=== PATIENT | female | born 1930 | race African-American/Black ===

== ENCOUNTER 2016-07-24 10:54 | Emergency (ER) | payer OTHER, MEDICARE ==
[2016-07-24 11:00] VITALS: BMI 28.3
--- NOTE | 2016-07-24 11:31 | PDOC ---
History of Present Illness - General Chief Complaint: Blood Pressure Problem Stated Complaint: HEADACHES, HIGH BP Time Seen by Provider: 07/24/16 11:08 - History of Present Illness Initial Comments: 07/24/16 11:30 CHIEF COMPLAINT: Headache, elevated BP HISTORY OF PRESENT ILLNESS: 86 yo F with hx of HTN, CAD s/p stent placement was sent to ED by GI MD Brock. Dr. Brock reports that patient is followed in the office for "GI issues" and in office today her BP was 230/100, on manual measurement was 220/96. At the time patient reports headache but no chest pain or SOB. Patient is followed by maintenance mechanic Dr. Miguel. On arrival, patient does report frontal headache but continues to report no SOB or chest pain. No recent travel or sick contacts. PAST MEDICAL HISTORY: as per HPI FAMILY HISTORY: Denies SOCIAL HISTORY: Former smoker, quit 30 years ago. Denies alcohol, illicit drug use. SURGICAL HISTORY: Denies ALLERGIES: No known drug allergies REVIEW OF SYSTEMS General/Constitutional: Denies fever or chills. Denies weakness, weight change. HEENT: Denies change in vision. Denies ear pain or discharge. Denies sore throat. Cardiovascular: Denies chest pain or shortness of breath. Respiratory: Denies cough, wheezing, or hemoptysis. Gastrointestinal: Denies nausea, vomiting, diarrhea or constipation. Denies rectal bleeding. Genitourinary: Denies dysuria, frequency, or change in urination. Musculoskeletal: Denies joint or muscle swelling or pain. Denies neck or back pain. Skin and breasts: Denies rash or easy bruising. Neurologic: Denies headache, vertigo, loss of consciousness, or loss of sensation. PHYSICAL EXAM General Appearance: Well-appearing, appropriately dressed. No apparent distress , no intoxication. HEENT: EOMI, PERRLA, normal ENT inspection, normal voice, TMs normal, pharynx normal. No conjunctival pallor. No photophobia, scleral icterus. Neck: Supple. Trachea midline. No tenderness, rigidity, carotid bruit, stridor , lymphadenopathy, or thyromegaly. Respiratory/Chest: Lungs CTAB. Cardiovascular: RRR. S1, S2. Gastrointestinal/Abdominal: Normal bowel sounds. Abdomen soft, non-distended. No tenderness or rebound tenderness. No organomegaly, pulsatile mass, guarding , hernia, hepatomegaly, splenomegaly. Musculoskeletal/Extremities: Normal inspection. FROM of all extremities, normal capillary refill. Pelvis Stable. No CVA tenderness. No tenderness to extremities, pedal edema, swelling, erythema or deformity. Integumentary: Appropriate color, dry, warm. No cyanosis, erythema, jaundice or rash Neurologic: truss puller helper II-XII intact. Fully oriented, alert. Appropriate mood/affect. Motor strength 5/5. No appreciable EOM palsy, facial droop or sensory deficit. A&Ox3, follow commands, respond appropriately CN2-12: conjugate gaze, pupil round, equal and reactive to light. Visual field full to confrontation. EOMI without nystagmus, pursuit is smooth without saccade. Facial sensation and muscle activation intact bilaterally. Hearing intact bilaterally. Palate elevate symmetrically. Shoulder shrug and neck turn full strength. Tongue protrude midline. Motor: UE and LE strength 5/5 throughout bilaterally. Muscle tone and bulk normal. Cerebellar: Rapid-alternating movement with regular rhythm without bradykinesia. Httyya-oc-ezhr and qlje-nc-umgy intact bilaterally without dysmetria or overshoot. Past History - Past Medical History Allergies/Adverse Reactions: Allergies Allergy/AdvReac Type Severity Reaction Status Date / Time cephalexin monohydrate Allergy Rash Verified 07/24/16 11:00 [From Keflex] clarithromycin [From Biaxin] AdvReac Verified 07/24/16 11:00 Home Medications: Ambulatory Orders Olmesartan Medoxomil [Benicar -] 40 mg PO DAILY #0 tablet 06/03/12 Amlodipine Besylate [Norvasc -] 10 mg PO DAILY tablet 03/27/15 Aspirin [ASA -] 81 mg PO DAILY tab.chew 03/27/15 Ranitidine [Zantac -] 150 mg PO DAILY 04/28/15 Nebivolol HCl [Bystolic] 5 mg PO AM 10/25/15 Nebivolol HCl [Bystolic] 20 mg PO HS 10/25/15 Prednisone 7.5 mg PO DAILY 06/21/16 Atorvastatin Ca [Lipitor] 40 mg PO HS #30 tablet 06/22/16 Anemia: No Asthma: No Cancer: No Cardiac Disorders: Yes (ASHD) CVA: No COPD: No CHF: No Dementia: No Diabetes: No GI Disorders: Yes (REFLUX, DIVERTICULOSIS, PEPTIC ULCER, HIATAL HERNIA, RECTAL POLYPS) Disorders: No HTN: Yes Hypercholesterolemia: Yes Liver Disease: Yes (NAFLD) Seizures: No Thyroid Disease: No - Surgical History Abdominal Surgery: (COLON RESECTION, 2012, PARTIAL CHOLECTOMY) Appendectomy: No Cardiac Surgery: Yes (cardiac stent, lt endarterectomy) Cholecystectomy: No Lung Surgery: No Neurologic Surgery: No Orthopedic Surgery: No - Immunization History Immunization Up to Date: (no open wounds) - Psycho/Social/Smoking Cessation Hx Anxiety: No Suicidal Ideation: No Smoking Status: No Smoking History: Former smoker Have you smoked in the past 12 months: No Number of Cigarettes Smoked Daily: 20 If you are a former smoker, when did you quit?: 30 YRS AGO Information on smoking cessation initiated: No Hx Alcohol Use: No Drug/Substance Use Hx: No Substance Use Type: None Hx Substance Use Treatment: No *Physical Exam - Vital Signs Last Vital Signs Temp Pulse Resp BP Pulse Ox 97.5 F L 56 L 20 204/60 99 07/24/16 10:57 07/24/16 10:57 07/24/16 10:57 07/24/16 10:57 07/24/16 11:12 ED Treatment Course - LABORATORY CBC & Chemistry Diagram: 07/24/16 11:40 07/24/16 12:00 Medical Decision Making - Medical Decision Making 07/24/16 12:03 86 yo F with hx of HTN and CAD s/p stent placement presents to ED with elevated BP and headache at GI office. On arrival to ED patient's BP 160/87. Patient c/o minor frontal headache, otherwise asymptomatic. -CBC, CMP -Tylenol 650 mg for headache. Patient has history of labile hypertension. Case discussed with ER attending MD Fierro, will monitor BP and reassess. Patient BP 156/80. Will discharge to home. 07/24/16 13:30 *DC/Admit/Observation/Transfer Diagnosis at time of Disposition: Hypertensive urgency - Discharge Dispostion Disposition: HOME Condition at time of disposition: Stable Admit: No - Referrals Referrals: Clarence Irving MD [Primary Care Provider] - - Patient Instructions Printed Discharge Instructions: DI for High Blood Pressure Additional Instructions: Please follow up with Dr. Miguel this week. If you experience any weakness to one side, slurred speech, blurred vision, difficulty eating, shortness of breath , chest pain, or any new or worsening symptoms, please return to the ER.
[2016-07-24] MEDS ORDERED: ACETAMINOPHEN 500 MG TABLET (FP) PO ONE (11:48)
[2016-07-24 12:24] LABS: BASOPHIL 1.2 % (0-2.0); EOSINOPHIL 2.7 % (0-4.5); MCH 30.4 pg (25.7-33.7); MCHC 32.8 g/dl (32.0-36.0); MEAN CELL VOLUME 92.5 fl (80-96); MEAN PLT VOLUME 10.6 fl (7.5-11.1); NEUTROPHILS 59.1 % (42.8-82.8); PLATELET COUNT 206 K/MM3 (134-434); RDW 15.3 % (11.6-15.6); WHITE BLOOD COUNT 5.9 K/mm3 (4.0-10.0)
[2016-07-24 12:26] LABS: URINE APPEARANCE CLOUDY; URINE BILIRUBIN NEGATIVE (NEGATIVE); URINE BLOOD NEGATIVE (NEGATIVE); URINE COLOR AMBER; URINE GLUCOSE (UA) NEGATIVE (NEGATIVE); URINE KETONE NEGATIVE (NEGATIVE); URINE NITRITE NEGATIVE (NEGATIVE); URINE UROBILINOGEN 2.0 E.U/dl E.U./dl (0.2-1.0)
[2016-07-24 12:32] LABS: URINE LEUK ESTERASE 2+ (NEGATIVE); URINE PROTEIN 2+ (NEGATIVE)
[2016-07-24 12:34] LABS: URINE HYALINE CAST 3 /lpf; URINE MUCUS FEW; URINE RBC 3 /hpf (0-3); URINE WBC 15 /hpf (3-5)
[2016-07-24 12:50] VITALS: BP 156/80; PULSE 80; TEMP 98
[2016-07-24 12:54] LABS: ALBUMIN 3.7 g/dl (3.4-5.0); CALCIUM 8.8 mg/dL (8.5-10.1)
[2016-07-24 12:55] LABS: BILIRUBIN,TOTAL 0.4 mg/dL (0.2-1.0); TOT PROT 7.2 g/dl (6.4-8.2)
[2016-07-24] MEDS ORDERED: NEBIVOLOL 5 MG TABLET (FP) PO ONE (13:32)
== END 2016-07-24 14:22 | disposition home or self-care (01) ==
LOC: JER 10:54
DX: I16.0 Hypertensive urgency (principal); I25.10 Atherosclerotic heart disease of native coronary artery without angina pectoris; Z95.5 Presence of coronary angioplasty implant and graft; Z87.891 Personal history of nicotine dependence; E78.00 Pure hypercholesterolemia, unspecified; K21.9 Gastro-esophageal reflux disease without esophagitis; K76.0 Fatty (change of) liver, not elsewhere classified
CPT/HCPCS: 36415; 80053; 81003; 81015; 85025; 99284-25

== ENCOUNTER 2017-06-02 07:13 | Inpatient (IN) | payer OTHER, MEDICARE ==
--- NOTE | 2017-06-02 07:34 | PDOC ---
History of Present Illness - General Chief Complaint: Pain, Acute Stated Complaint: ABDOMINAL PAIN Time Seen by Provider: 06/02/17 07:34 - History of Present Illness Initial Comments: 06/02/17 09:00 87yo woman with PMH of diverticulitis s/p hemicolectomy (2011), CAD s/p stents, HTN, CKD stage 3 who presents with acute onset of LLQ starting 2 days ago. The pain is "squeezing", intermittently radiating to L back, worse with movement, and 10/10 at its worse. She took 2xTylenol without relief. No episodes of diverticulitis since the hemicolectomy. She also endorses dysuria for the past two days. Denies fever, chills, n/v, and chest pain. PSx: hysterectomy, L hemicolectomy (2011), cardiac stent (2007), L carotid endarterectomy (1997) FamHx: Mom- uterine Ca, nieces - breast Ca PCP: Dr. Irving GI: Dr. Wang Cards: Dr. Miguel Past History - Past Medical History Allergies/Adverse Reactions: Allergies Allergy/AdvReac Type Severity Reaction Status Date / Time cephalexin monohydrate Allergy Rash Verified 06/02/17 07:24 [From Keflex] clarithromycin [From Biaxin] AdvReac Verified 06/02/17 07:24 Home Medications: Ambulatory Orders Olmesartan Medoxomil [Benicar -] 40 mg PO DAILY #0 tablet 06/03/12 Aspirin [ASA -] 81 mg PO DAILY tab.chew 03/27/15 Hydrochlorothiazide [Hctz -] 12.5 mg PO DAILY 06/02/17 Nebivolol HCl [Bystolic] 40 mg PO DAILY 06/02/17 Anemia: No Asthma: No Cancer: No Cardiac Disorders: Yes (ASHD) CVA: No COPD: No CHF: No Dementia: No Diabetes: No GI Disorders: Yes (REFLUX, DIVERTICULOSIS, PEPTIC ULCER, HIATAL HERNIA, RECTAL POLYPS) Disorders: No HTN: Yes Hypercholesterolemia: Yes Liver Disease: Yes (NAFLD) Seizures: No Thyroid Disease: No - Surgical History Abdominal Surgery: (COLON RESECTION, 2011, PARTIAL CHOLECTOMY) Appendectomy: No Cardiac Surgery: Yes (cardiac stent, lt endarterectomy) Cholecystectomy: No Lung Surgery: No Neurologic Surgery: No Orthopedic Surgery: No - Family Disease History Family Disease History: CA: Mother (uterine) - Immunization History Immunization Up to Date: (no open wounds) - Suicide/Smoking/Psychosocial Hx Smoking Status: No Smoking History: Former smoker Have you smoked in the past 12 months: No Number of Cigarettes Smoked Daily: 20 If you are a former smoker, when did you quit?: 30 YRS AGO Information on smoking cessation initiated: No Hx Alcohol Use: No Drug/Substance Use Hx: No Substance Use Type: None Hx Substance Use Treatment: No *Physical Exam - Vital Signs Last Vital Signs Temp Pulse Resp BP Pulse Ox 98.2 F 55 L 20 221/81 100 06/02/17 07:24 06/02/17 07:24 06/02/17 07:24 06/02/17 07:24 06/02/17 07:24 - Physical Exam General Appearance: Yes: Nourished, Appropriately Dressed HEENT: positive: Normal ENT Inspection Neck: positive: Supple. negative: Lymphadenopathy (R), Lymphadenopathy (L) Respiratory/Chest: positive: Lungs Clear, Normal Breath Sounds Cardiovascular: positive: Regular Rhythm, Regular Rate, S1, S2 Vascular Pulses: Dorsalis-Pedis (R): 2+, Doralis-Pedis (L): 2+ Gastrointestinal/Abdominal: positive: Normal Bowel Sounds, Soft, Tenderness (LLQ ). negative: Guarding, Rebound Musculoskeletal: positive: CVA Tenderness (L) (mild) Extremity: positive: Normal Inspection. negative: Pedal Edema Neurologic: positive: Fully Oriented, Alert, Normal Mood/Affect ED Treatment Course - LABORATORY CBC & Chemistry Diagram: 06/02/17 09:54 06/02/17 09:54 - RADIOLOGY Radiology Studies Ordered: 06/02/17 15:16 EXAM#: TYPE/EXAM: RESULT: [id number] CT/ABDOMEN PELVIS CT WITH CONTR Abdomen and pelvis CT (with contrast) Clinical information - left lower quadrant pain Multiplanar imaging was performed following the intravenous administration of nonionic contrast. As requested oral contrast was not administered. There is possible mild concentric continuous wall thickening along the left lateral half of the transverse colon which could be on the basis of acute colitis versus artifactual thickening due to lack of distention. No pericolonic edema or fluid is seen. There is no CT evidence of acute diverticulitis or appendicitis. No evidence of pneumoperitoneum, abscess, free intraperitoneal fluid or bowel obstruction. An approximately 2.7 cm minimally enhancing pancreatic tail noncalcified soft tissue mass lesion is noted mildly indenting the splenic hilum. This pancreatic lesion was not present at the time of a prior CT study of 10/06/2015. Interval development of mild diffuse dilatation of the main pancreatic duct is also noted. No gross pancreatic head mass lesion is identified. There is no definite lymphadenopathy. Development of mild intrahepatic and extrahepatic biliary tract dilatation is seen. No gross CT evidence of choledocholithiasis. Several punctate densities are seen along the posterior gallbladder wall possibly representing calculi versus polyps. Several left and right hepatic lobe cysts are noted which have mildly increased in size. Multiple bilateral renal cortical cysts are noted which appear to be simple in nature. There is no definite hydronephrosis. The adrenal glands demonstrate no discrete abnormality. There is no aortic aneurysm. A surgical anastomosis is noted in the rectosigmoid region. Status post hysterectomy. The visualized osseous structures demonstrate no obvious CT evidence of acute pathology or neoplastic disease. IMPRESSION: There is possible mild concentric wall thickening along the left lateral half of the transverse colon which could be on the basis of acute colitis (versus artifactual thickening due to limited distention). If clinically indicated follow-up CT may be performed with oral contrast. The transverse colon is redundant and extends into the lower abdomen/upper pelvis. In comparison to a prior CT study of 10/06/2015 interval development of a 3 cm pancreatic tail soft tissue mass lesion is noted. This finding is reported as being unchanged on abdomen MRI studies of 05/17/2017 and 07/16/2016. Also in comparison to the prior CT study interval development of mild diffuse dilatation of the main pancreatic duct is noted as well as development of mild intrahepatic and extrahepatic biliary tract dilatation. These latter findings are described as being unchanged on the previously noted MRI studies. Possible cholelithiasis versus very small gallbladder polyps. If clinically indicated correlate with sonography. Rectosigmoid surgical anastomosis without gross pathology. Status post hysterectomy. Small to moderate umbilical hernia containing fat only without interval change. Partial imaging of cardiomegaly. Reported By: Bandar Recio MD 06/02/17 [id number] Medical Decision Making - Medical Decision Making 06/02/17 09:14 87yo woman with PMH of diverticulitis s/p hemicolectomy who presents with acute onset of LLQ pain and dysuria. Differential includes, but not limited to diverticulitis vs UTI vs pyelonephritis. Will give dilaudid for pain control. Abdomen/pelvis CT ideally with IV contrast depending on renal function to assess for diverticulitis/perforation, and/or hydroureteronephrosis. Basic lab work-up: -CBC, CMP -UA, Urine Cx -1L NS -CT A/P, w/o PO contrast, ?IV 06/02/17 15:12 CBC, BMP 06/02/17 09:54 06/02/17 09:54 Hepatic Panel Total Bilirubin 0.5 mg/dL (0.2-1.0) D 06/02/17 09:54 AST 32 U/L (15-37) 06/02/17 09:54 ALT 15 U/L (12-78) D 06/02/17 09:54 Alkaline Phosphatase 97 U/L (45-117) 06/02/17 09:54 Albumin 3.4 g/dl (3.4-5.0) 06/02/17 09:54 Urine Test Results Urine Color Yellow 06/02/17 08:47 Urine Appearance Slcloudy 06/02/17 08:47 Urine pH 5.0 (5.0-8.0) 06/02/17 08:47 Ur Specific Velma 1.020 (1.001-1.035) 06/02/17 08:47 Urine Protein 2+ (NEGATIVE) H 06/02/17 08:47 Urine Glucose (UA) Negative (NEGATIVE) 06/02/17 08:47 Urine Ketones Trace (NEGATIVE) H 06/02/17 08:47 Urine Blood Negative (NEGATIVE) 06/02/17 08:47 Urine Nitrite Negative (NEGATIVE) 06/02/17 08:47 Urine Bilirubin Negative (NEGATIVE) 06/02/17 08:47 Ur Epithelial Cells Few /HPF (FEW) 06/02/17 08:47 Urine Mucus Rare 06/02/17 08:47 Labs and UA is not c/w active infection or UTI. CT A/P does show acute colitis. Will give 1x dose of Levofloxacin and Flagyl. Called Dr. Irving's office who said to page Dr. Reyes. Case discussed with Dr. Reyes who requested the patient be admitted by the Hospitalist group. Patient c/o pain. Will give another dose of hydromorphone. 06/02/17 18:50 Patient admitted to M/S observation for acute colitis and pain management under Dr. Waite. *DC/Admit/Observation/Transfer Diagnosis at time of Disposition: Acute colitis - Discharge Dispostion Condition at time of disposition: Stable Admit: Yes - Referrals - Patient Instructions - Post Discharge Activity
--- NOTE | 2017-06-02 07:34 | PDOC ---
History of Present Illness - General Chief Complaint: Pain, Acute Stated Complaint: ABDOMINAL PAIN Time Seen by Provider: 06/02/17 07:34 Past History - Past Medical History Allergies/Adverse Reactions: Allergies Allergy/AdvReac Type Severity Reaction Status Date / Time cephalexin monohydrate Allergy Rash Verified 06/02/17 07:24 [From Keflex] clarithromycin [From Biaxin] AdvReac Verified 06/02/17 07:24 Home Medications: Ambulatory Orders Olmesartan Medoxomil [Benicar -] 40 mg PO DAILY #0 tablet 06/03/12 Amlodipine Besylate [Norvasc -] 10 mg PO DAILY tablet 03/27/15 Aspirin [ASA -] 81 mg PO DAILY tab.chew 03/27/15 Ranitidine [Zantac -] 150 mg PO DAILY 04/28/15 Nebivolol HCl [Bystolic] 5 mg PO AM 10/25/15 Nebivolol HCl [Bystolic] 20 mg PO HS 10/25/15 Prednisone 7.5 mg PO DAILY 06/21/16 Atorvastatin Ca [Lipitor] 40 mg PO HS #30 tablet 06/22/16 Anemia: No Asthma: No Cancer: No Cardiac Disorders: Yes (ASHD) CVA: No COPD: No CHF: No Dementia: No Diabetes: No GI Disorders: Yes (REFLUX, DIVERTICULOSIS, PEPTIC ULCER, HIATAL HERNIA, RECTAL POLYPS) Disorders: No HTN: Yes Hypercholesterolemia: Yes Liver Disease: Yes (NAFLD) Seizures: No Thyroid Disease: No - Surgical History Abdominal Surgery: (COLON RESECTION, 2012, PARTIAL CHOLECTOMY) Appendectomy: No Cardiac Surgery: Yes (cardiac stent, lt endarterectomy) Cholecystectomy: No Lung Surgery: No Neurologic Surgery: No Orthopedic Surgery: No - Immunization History Immunization Up to Date: (no open wounds) - Suicide/Smoking/Psychosocial Hx Smoking Status: No Smoking History: Former smoker Have you smoked in the past 12 months: No Number of Cigarettes Smoked Daily: 20 If you are a former smoker, when did you quit?: 30 YRS AGO Information on smoking cessation initiated: No Hx Alcohol Use: No Drug/Substance Use Hx: No Substance Use Type: None Hx Substance Use Treatment: No *Physical Exam - Vital Signs Last Vital Signs Temp Pulse Resp BP Pulse Ox 98.2 F 55 L 20 221/81 100 06/02/17 07:24 06/02/17 07:24 06/02/17 07:24 06/02/17 07:24 06/02/17 07:24
[2017-06-02] MEDS ORDERED: SODIUM CHLORIDE 0.9% 1000 ML INFUS.BAG IV ONE (08:44)
[2017-06-02] MEDS ORDERED: morphine CARPU-JECT 4 MG/1 ML DISP.SYRIN IVPUSH ONE (08:44)
[2017-06-02] MEDS ORDERED: HYDROmorphone HCL CARPU-JECT 1 MG/1 ML DISP.SYRIN IVPUSH ONE ×2 (08:45→15:41)
[2017-06-02] MEDS ORDERED: HYDROmorphone HCL CARPU-JECT 1 MG/1 ML DISP.SYRIN ONE (09:06)
[2017-06-02 09:40] LABS: URINE APPEARANCE SLCLOUDY; URINE BILIRUBIN NEGATIVE (NEGATIVE); URINE BLOOD NEGATIVE (NEGATIVE); URINE COLOR YELLOW; URINE GLUCOSE (UA) NEGATIVE (NEGATIVE); URINE KETONE TRACE (NEGATIVE); URINE LEUK ESTERASE NEGATIVE (NEGATIVE); URINE NITRITE NEGATIVE (NEGATIVE); URINE UROBILINOGEN NEGATIVE mg/dL (0.2-1.0)
[2017-06-02 09:45] LABS: URINE PROTEIN 2+ (NEGATIVE)
--- NOTE | 2017-06-02 09:59 | PDOC ---
Attending Attestation - HPI HPI: 06/02/17 11:51 Patient is a 87 year old female with a significant past medical history of CAD s /p PCI x 2, PUD, Diverticulitis s/p colon resection, CKD Stage 3, hypertension who presents to the ED with complaints of left lower quadrant pain that began 2 days ago. Patient reports left lower quadrant pain is an intense 10/10 that's she states radiates towards her back. Patient states left lower quadrant pain is increased with any type of movement. She reports experiencing episodes of dysuria but is unsure if it is related to pain. Patient states getting MRI done in end of April. Denies fevers, chills. DEnies nausea, vomiting. Denies contact with sick individuals, out of state travel. Denies trauma to affected area. Denies constipation, diarrhea. Denies any other symptoms. Allergies: cephalexin monohydrate, clarithromycin Social history: Former smoker, (stopped in 1982, can't say how much she smoked) . No alcohol. No illicit drugs. Surgical history: partial colectomy, PCI, Hysterectomy PMD: Dr. Clarence Chauhan GI: Dr. August, Dr. Wang - Physicial Exam PE: 06/02/17 11:51 Vitals: Triage Vital signs reviewed General Appearance: no acute distress, well nourished well developed Neck: Supple; No Nucal rigidity Chest Wall: Nontender Cardiac: Regular rate and rhythm, no murmurs, no rubs, no gallops Lungs: Clear to auscultation bilateral, good air movement bilaterally Abdomen: +Left Lower quadrant pain. Soft, non distended, normal bowel sounds, non tender to palpation Neuro: AOX3; Cranial Nerves 2-12 grossly intact, Strength intact to all extremities, Sensation intact to all extremities, gait normal Psych: Normal mood, normal affect - Medical Decision Making 06/02/17 11:52 Documentation prepared by Keny Hilario, acting as medical billing coder for Ramses Sanchez MD, /DO. <Keny Hilario - Last Filed: 06/02/17 11:51> - Resident Resident Name: RitoBrandi - ED Attending Attestation I have performed the following: I have examined & evaluated the patient, The case was reviewed & discussed with the resident, I agree w/resident's findings & plan, Exceptions are as noted - Medical Decision Making 06/02/17 16:20 Left lower quadrant pain. CT evidence of colitis. We'll observe and treat with Levaquin and Flagyl <Ramses Sanchez - Last Filed: 06/02/17 16:21>
[2017-06-02 10:06] LABS: EOSINOPHIL 0.7 % (0-4.5); MCH 30.4 pg (25.7-33.7); MCHC 32.1 g/dl (32.0-36.0); MEAN CELL VOLUME 94.5 fl (80-96); MEAN PLT VOLUME 9.6 fl (7.5-11.1); NEUTROPHILS 58.4 % (42.8-82.8); PLATELET COUNT 206 K/MM3 (134-434); RDW 14.8 % (11.6-15.6); WHITE BLOOD COUNT 6.3 K/mm3 (4.0-10.0)
[2017-06-02 10:20] LABS: ALBUMIN 3.4 g/dl (3.4-5.0); ALK PHOS 97 U/L (45-117); ANION GAP 6 (8-16); BILIRUBIN,TOTAL 0.5 mg/dL (0.2-1.0); CALCIUM 8.6 mg/dL (8.5-10.1); CO2 27 mmol/L (21-32); CREATININE 1.1 mg/dL (0.55-1.02); GLUCOSE,RANDOM 75 mg/dL (74-106); SGOT/AST 32 U/L (15-37); SGPT/ALT 15 U/L (12-78); TOT PROT 7.1 g/dl (6.4-8.2)
[2017-06-02 11:06] LABS: URINE MUCUS RARE; URINE RBC <1 /hpf (0-3); URINE WBC 3 /hpf (3-5)
[2017-06-02] MEDS: SODIUM CHLORIDE 1,000 ML IV SCH (12:54)
[2017-06-02] MEDS ORDERED: LEVOFLOXACIN 500 MG IVPB 500 MG/100 ML BAG IVPB ONE ×2 (15:40→17:42)
[2017-06-02] MEDS ORDERED: METRONIDAZOLE 500 MG PREMIXED 500 MG/100 ML MG IVPB ONE ×3 (15:40→20:15)
[2017-06-02] MEDS ORDERED: SODIUM CHLORIDE 1,000 ML IV SCH (15:45)
[2017-06-02 17:33] VITALS: BMI 25.4
[2017-06-02] MEDS ORDERED: ACETAMINOPHEN 325 MG TABLET (FP) PO PRN (18:44)
[2017-06-02 18:47] LABS: URINE LEUK ESTERASE NEGATIVE (NEGATIVE)
--- NOTE | 2017-06-02 18:51 | HP ---
CHIEF COMPLAINT: LLQ pain radiating to left flank PCP: Dr. Chauhan HISTORY OF PRESENT ILLNESS: 87 year-old female with a PMH significant for labile HTN, CAD s/p stents x 2, peptic ulcer disease, diverticulitis s/p hemicolectomy (2011), and CKD. Patient presented to the ED with a complaint of LLQ pain radiating to the left flank and back. The pain has gotten progressively worse to the point where patient cannot get out of bed to prepare meals. Patient also complains of pain on urination and urgency x 2 days. Patient states she had a small watery bowel movement yesterday, but otherwise usually feels constipated. Patient denies fever, sweats, chills; nausea, vomiting, diarrhea, constipation; hematuria, melena, hematochezia. ER course was notable for: (1) BP 221/91 (2) CTAP: (1) possible mild concentric continuous wall thickening transverse colon, acute colitis v. 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 and mild diffuse dilation of the main pancreatic duct, neither seen on 2016 study (4) mild intrahepatic and extrahepatic biliary duct dilation (5) possible cholelithiasis (3) Levofloxacin x 1 dose, metronidazole x 1 dose Recent Travel: No PAST MEDICAL HISTORY: Labile hypertension Coronary artery disease s/p stents x 2 Peptic ulcer disease Diverticulitis Chronic kidney disease PAST SURGICAL HISTORY: Coronary artery stents Colon resection/hemicolectomy (2011) Social History: Lives alone Smoking: quit 1982 Alcohol: no Drugs: no Family History: Allergies cephalexin monohydrate [From Keflex] Allergy (Verified 06/02/17 07:24) Rash clarithromycin [From Biaxin] Adverse Reaction (Verified 06/02/17 07:24) diarrhea HOME MEDICATIONS: Medication Instructions Recorded Olmesartan Medoxomil [Benicar -] 40 mg PO DAILY #0 tablet 06/03/12 Aspirin [ASA -] 81 mg PO DAILY tab.chew 03/27/15 Hydrochlorothiazide [Hctz -] 12.5 mg PO DAILY 06/02/17 Nebivolol HCl [Bystolic] 40 mg PO DAILY 06/02/17 REVIEW OF SYSTEMS CONSTITUTIONAL: Absent: fever, chills, diaphoresis, generalized weakness, malaise, loss of appetite, weight change HEENT: Absent: rhinorrhea, nasal congestion, throat pain, throat swelling, difficulty swallowing, mouth swelling, ear pain, eye pain, visual changes CARDIOVASCULAR: Absent: chest pain, syncope, palpitations, irregular heart rate, lightheadedness , peripheral edema RESPIRATORY: Absent: cough, shortness of breath, dyspnea with exertion, orthopnea, wheezing, stridor, hemoptysis GASTROINTESTINAL: Present: LLQ pain, one episode of diarrhea, constipation Absent: abdominal pain, abdominal distension, nausea, vomiting, diarrhea, constipation, melena, hematochezia GENITOURINARY: Present: dysuria, urgency Absent: frequency, hesitancy, hematuria, flank pain, genital pain MUSCULOSKELETAL: Absent: myalgia, arthralgia, joint swelling, back pain, neck pain SKIN: Absent: rash, itching, pallor HEMATOLOGIC/IMMUNOLOGIC: Absent: easy bleeding, easy bruising, lymphadenopathy, frequent infections ENDOCRINE: Absent: unexplained weight gain, unexplained weight loss, heat intolerance, cold intolerance NEUROLOGIC: Absent: headache, focal weakness or paresthesias, dizziness, unsteady gait, seizure, mental status changes, bladder or bowel incontinence PSYCHIATRIC: Absent: anxiety, depression, suicidal or homicidal ideation, hallucinations. PHYSICAL EXAMINATION Vital Signs - 24 hr 06/02/17 06/02/17 06/02/17 07:24 14:15 17:28 Temperature 98.2 F Pulse Rate 55 L 61 Pulse Rate [ 67 Right Radial] Respiratory 20 18 18 Rate Blood Pressure 221/81 201/91 Blood Pressure 198/82 [Right Arm] O2 Sat by Pulse 100 100 98 Oximetry (%) GENERAL: Awake, alert, and fully oriented, in no acute distress. HEAD: Normal with no signs of trauma. EYES: Pupils equal, round and reactive to light, extraocular movements intact, sclera anicteric, conjunctiva clear. No lid lag. EARS, NOSE, THROAT: Ears normal, nares patent, oropharynx clear without exudates. Moist mucous membranes. NECK: Normal range of motion, supple without lymphadenopathy, JVD, or masses. LUNGS: Breath sounds equal, clear to auscultation bilaterally. No wheezes, and no crackles. No accessory muscle use. HEART: Regular rate and rhythm, normal S1 and S2 without murmur, rub or gallop. ABDOMEN: Soft, nontender, not distended, normoactive bowel sounds, no guarding, no rebound, no masses. No hepatomegaly or splenomegaly. MUSCULOSKELETAL: Normal range of motion at all joints. No bony deformities or tenderness. No CVA tenderness. UPPER EXTREMITIES: 2+ pulses, warm, well-perfused. No cyanosis. No clubbing. No peripheral edema. LOWER EXTREMITIES: 2+ pulses, warm, well-perfused. No calf tenderness. No peripheral edema. NEUROLOGICAL: Cranial nerves II-XII intact. Normal speech. Normal gait. PSYCHIATRIC: Cooperative. Good eye contact. Appropriate mood and affect. SKIN: Warm, dry, normal turgor, no rashes or lesions noted, normal capillary refill. Laboratory Results - last 24 hr 06/02/17 06/02/17 06/02/17 08:47 09:54 09:54 WBC 6.3 RBC 4.19 Hgb 12.7 Hct 39.6 MCV 94.5 MCH 30.4 MCHC 32.1 RDW 14.8 Plt Count 206 MPV 9.6 Neutrophils % 58.4 Lymphocytes % 27.4 D Monocytes % 12.5 H Eosinophils % 0.7 Basophils % 1.0 Sodium 140 Potassium 4.3 Chloride 107 Carbon Dioxide 27 Anion Gap 6 L BUN 19 H Creatinine 1.1 H Creat Clearance w eGFR 46.98 Random Glucose 75 Calcium 8.6 Total Bilirubin 0.5 D AST 32 ALT 15 D Alkaline Phosphatase 97 Total Protein 7.1 Albumin 3.4 Urine Color Yellow Urine Appearance Slcloudy Urine pH 5.0 Ur Specific [place] 1.020 Urine Protein 2+ H Urine Glucose (UA) Negative Urine Ketones Trace H Urine Blood Negative Urine Nitrite Negative Urine Bilirubin Negative Urine Urobilinogen Negative Ur Leukocyte Esterase Negative Urine WBC (Auto) 3 Urine RBC (Auto) <1 Ur Epithelial Cells Few Urine Mucus Rare ASSESSMENT/PLAN: 87 year-old female, excellent historian, with a PMH significant for labile HTN , CAD s/p stents x 2, peptic ulcer disease, and diverticulitis s/p hemicolectomy (2011). Placed on observation for possible mild colitis, dysuria, and pancreatic mass with pancreatic and hepatic bile duct dilitation. Left lower quadrant pain of uncertain etiology --r/o GI source: --CTAP suggestive of possible mild colitis v. artifact from lack of distension; no indication of diverticulitis; no gross pathology associated with rectosigmoid surgical anastomosis --pain is out of proportion to mild radiologic findings and benign abdomen on exam --consider repeat CT with PO contrast --IV fluids while NPO --r/o renal source --pain extends from LLQ, across left flank, to left back, suggestive of possible renal colic; CTAP, however, does not show hydronephrosis, renal function is wnl; discuss with radiology yield from additional imaging --UA is negative; no fever, no leukocytosis; no further antibiotics for now --r/o COMMUNICATION INSTRUCTOR source --consider COMMUNICATION INSTRUCTOR exam to r/o vaginal infection/PID Labile hypertension, chronic --continue Valsartan, Bystolic, HCTZ Coronary artery disease s/p stents --continue ASA, Bystolic; not on statin Peptic ulcer disase --protonix Pancreatic mass Pancreatic duct dilitation Hepatic duct dilitation --GI consult --check lipase --repeat LFTs DVT prophylaxis: subq heparin; oob; ambulation Dispo: continues to require observation. Full code. Dysuria Urgency Visit type - Emergency Visit Emergency Visit: Yes ED Registration Date: 06/02/17 Care time: The patient presented to the Emergency Department on the above date and was hospitalized for further evaluation of their emergent condition. - New Patient This patient is new to me today: Yes Date on this admission: 06/02/17 - Critical Care Critical Care patient: No
[2017-06-02] MEDS: HYDROCHLOROTHIAZIDE 12.5 MG CAPSULE (FP) PO SCH (20:09)
[2017-06-02] MEDS: VALSARTAN 160 MG TABLET (UD) PO SCH (20:09)
[2017-06-02] MEDS: ASPIRIN 81 MG CHEWABLE TABLETS PO SCH (20:10)
[2017-06-02] MEDS ORDERED: DEXTROSE 5%-NORMAL SALINE 1,000 ML IV SCH (21:00)
[2017-06-02] MEDS: NEBIVOLOL 10 MG TABLET (FP) PO SCH (21:13)
[2017-06-02] MEDS: HEPARIN NA (PORCINE) 5,000 UNITS/ML 1ML VIAL SQ SCH (21:17)
[2017-06-03] MEDS: oxyCODONE HCL 5 MG TABLET PO PRN ×2 (05:23→22:14)
[2017-06-03] MEDS: HEPARIN NA (PORCINE) 5,000 UNITS/ML 1ML VIAL SQ SCH ×3 (05:25→21:05)
[2017-06-03 09:14] LABS: BASOPHIL 0.8 % (0-2.0); EOSINOPHIL 2.2 % (0-4.5); MCH 30.5 pg (25.7-33.7); MCHC 32.2 g/dl (32.0-36.0); MEAN CELL VOLUME 94.7 fl (80-96); MEAN PLT VOLUME 10.2 fl (7.5-11.1); NEUTROPHILS 59.1 % (42.8-82.8); PLATELET COUNT 205 K/MM3 (134-434); RDW 14.7 % (11.6-15.6); WHITE BLOOD COUNT 6.6 K/mm3 (4.0-10.0)
[2017-06-03 10:00] LABS: ALBUMIN 3.4 g/dl (3.4-5.0); ALK PHOS 94 U/L (45-117); ANION GAP 8 (8-16); BILIRUBIN,TOTAL 0.8 mg/dL (0.2-1.0); CALCIUM 8.8 mg/dL (8.5-10.1); CO2 26 mmol/L (21-32); GLUCOSE,RANDOM 102 mg/dL (74-106); PHOSPHOROUS 2.3 mg/dL (2.5-4.9); SGOT/AST 39 U/L (15-37); SGPT/ALT 21 U/L (12-78); TOT PROT 7.1 g/dl (6.4-8.2)
[2017-06-03] MEDS ORDERED: PANTOPRAZOLE 40 MG TABLET (FP) PO SCH (10:00)
[2017-06-03 10:03] LABS: ALBUMIN 3.4 g/dl (3.4-5.0); BILIRUBIN,DIRECT 0.2 mg/dL (0.0-0.2); BILIRUBIN,TOTAL 0.7 mg/dL (0.2-1.0); TOT PROT 7.1 g/dl (6.4-8.2)
[2017-06-03] MEDS ORDERED: NAPH,MB-DB/K PH,MBDB POWDER PACKET PO ONE (10:47)
--- NOTE | 2017-06-03 10:58 | CON.GI ---
Consult - Past Medical History Cardio/Vascular: Yes: CAD, HTN, Hyperlipdemia, Other Gastrointestinal: Yes: Constipation, Diverticulosis, Peptic Ulcer Disease, Other Renal/: Yes: Renal Inusuff - Past Surgical History Past Surgical History: Yes: Carotid Endarterectomy, Colectomy, Stent - Alcohol/Substance Use Hx Alcohol Use: No History of Substance Use: reports: None - Smoking History Smoking history: Former smoker Have you smoked in the past 12 months: No Aproximately how many cigarettes per day: 20 If you are a former smoker, when did you quit?: 30 YRS AGO - Social History ADL: Independent History of Recent Travel: No Home Medications - Allergies Allergies/Adverse Reactions: Allergies Allergy/AdvReac Type Severity Reaction Status Date / Time cephalexin monohydrate Allergy Rash Verified 06/02/17 07:24 [From Keflex] clarithromycin [From Biaxin] AdvReac Verified 06/02/17 07:24 - Home Medications Home Medications: Ambulatory Orders Olmesartan Medoxomil [Benicar -] 40 mg PO DAILY #0 tablet 06/03/12 Aspirin [ASA -] 81 mg PO DAILY tab.chew 03/27/15 Hydrochlorothiazide [Hctz -] 12.5 mg PO DAILY 06/02/17 Nebivolol HCl [Bystolic] 40 mg PO DAILY 06/02/17 Family Disease History - Family Disease History Family Disease History: Diabetes: Father, Mother, Heart Disease: Father, CA: Mother
[2017-06-03] MEDS: ASPIRIN 81 MG CHEWABLE TABLETS PO SCH (11:14)
[2017-06-03] MEDS: VALSARTAN 160 MG TABLET (UD) PO SCH (11:14)
[2017-06-03] MEDS ORDERED: HYDROmorphone HCL CARPU-JECT 2 MG/1 ML DISP.SYRIN IVPB ONE (11:15)
[2017-06-03] MEDS: HYDROCHLOROTHIAZIDE 12.5 MG CAPSULE (FP) PO SCH (11:16)
[2017-06-03] MEDS: NEBIVOLOL 10 MG TABLET (FP) PO SCH (11:40)
--- NOTE | 2017-06-03 12:39 | CON.GI ---
Consult Consult Specialty:: GI Referred by:: Hospitalist service Reason for Consultation:: Abdominal pain, pancreatic mass - History of Present Illness Chief Complaint: 87 y.o. woman with known mass in pancreatic tail, also with known celiac axis vascular disease, reports 4 days of abdominal pain with radiation to back. Has been able to eat lightly at home, does not think it was made worse when she ate. Had MRI last month documenting pancreatic tail lesion , present also in 07/2016 MRI. Had MRA this year documenting stenosis of celiac axis with adequate distal filling. - Past Medical History Cardio/Vascular: Yes: CAD, HTN, Hyperlipdemia, Other Gastrointestinal: Yes: Constipation, Diverticulosis, Peptic Ulcer Disease, Other Renal/: Yes: Renal Inusuff - Past Surgical History Past Surgical History: Yes: Carotid Endarterectomy, Colectomy, Stent - Alcohol/Substance Use Hx Alcohol Use: No History of Substance Use: reports: None - Smoking History Smoking history: Former smoker Have you smoked in the past 12 months: No Aproximately how many cigarettes per day: 20 If you are a former smoker, when did you quit?: 30 YRS AGO - Social History ADL: Independent History of Recent Travel: No Home Medications - Allergies Allergies/Adverse Reactions: Allergies Allergy/AdvReac Type Severity Reaction Status Date / Time cephalexin monohydrate Allergy Rash Verified 06/02/17 07:24 [From Keflex] clarithromycin [From Biaxin] AdvReac Verified 06/02/17 07:24 - Home Medications Home Medications: Ambulatory Orders Olmesartan Medoxomil [Benicar -] 40 mg PO DAILY #0 tablet 06/03/12 Aspirin [ASA -] 81 mg PO DAILY tab.chew 03/27/15 Hydrochlorothiazide [Hctz -] 12.5 mg PO DAILY 06/02/17 Nebivolol HCl [Bystolic] 40 mg PO DAILY 06/02/17 Family Disease History - Family Disease History Family Disease History: Diabetes: Father, Mother, Heart Disease: Father, CA: Mother Physical Exam-GI Vital Signs: Vital Signs Temperature 98.6 F 06/03/17 06:00 Pulse Rate 67 06/03/17 06:00 Respiratory Rate 20 06/03/17 06:00 Blood Pressure 184/94 06/03/17 06:00 O2 Sat by Pulse Oximetry (%) 96 06/03/17 02:48 Labs: CBC, BMP 06/03/17 07:45 06/03/17 07:45 Imaging - Results Cat Scan: Report Reviewed, Image Reviewed MRI: Report Reviewed, Image Reviewed Assessment/Plan Abdominal and back pain over the past 4 days. She reports that the first two days were worse than present, but she feels unable to bear with more pain. Her exam is benign and the symptoms are out of proportion to the findings. I would worry that she has developed more severe stenosis or ischemia of the bowel. The possibility also exists that the pancreatic mass is now invading nerve tissue. I would suggest a vascular surgical evaluation. The pancreatic mass is a less urgent issue. - Hans Wang MD
--- NOTE | 2017-06-03 14:10 | CONSULT ---
- Consultation REQUESTING PROVIDER: [employer] Advisor CONSULT REQUEST: We have been asked to surgically evaluate this patient for abdominal pain PCP:Emerald Bolanos HISTORY OF PRESENT ILLNESS: CTSP who is a 87 y/o female with acute on ? chronic LUQ/LLQ abdominal pain w/o associated nausea and or vomiting; pat has a known stable pancreatic tail lesion and known celiac artery stenosis w/adequate runoff by hx; she has a h/o sigmoid colon resection and small bowel resection in [address] Jamra Garcia for diverticulitis; she has no other c/o. 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 PMHx: hypertension hypelipidemia PSHx: as above plus CEA Home Medications Medication Instructions Recorded Olmesartan Medoxomil [Benicar -] 40 mg PO DAILY #0 tablet 06/03/12 Aspirin [ASA -] 81 mg PO DAILY tab.chew 03/27/15 Hydrochlorothiazide [Hctz -] 12.5 mg PO DAILY 06/02/17 Nebivolol HCl [Bystolic] 40 mg PO DAILY 06/02/17 Allergies Allergy/AdvReac Type Severity Reaction Status Date / Time cephalexin monohydrate Allergy Rash Verified 06/02/17 07:24 [From Keflex] clarithromycin [From Biaxin] AdvReac Verified 06/02/17 07:24 PHYSICAL EXAM: GENERAL: Awake, alert, and fully oriented, in no acute distress. HEAD: Normal with no signs of trauma. EYES: sclera anicteric, conjunctiva clear. NECK: Normal ROM, supple without lymphadenopathy, JVD, or masses. ABDOMEN: Soft, nontender, not distended, normoactive bowel sounds, no guarding, no rebound, no masses. No organomegaly. No hernias; healed surgical scar MUSCULOSKELETAL: Normal ROM at all joints. No bony deformities or tenderness. No CVA tenderness. UPPER EXTREMITIES: 2+ pulses, warm, well-perfused. No cyanosis. Cap refill <2 seconds. No peripheral edema. LOWER EXTREMITIES: 2+ pulses, warm, well-perfused. No calf tenderness. No peripheral edema. NEUROLOGICAL: Normal speech, gait not observed. PSYCH: Cooperative. Good eye contact. Appropriate mood and affect. SKIN: Warm, dry, normal turgor, no rashes or lesions noted. Vital Signs Temperature 98.3 F 06/03/17 10:00 Pulse Rate 56 L 06/03/17 10:00 Respiratory Rate 20 06/03/17 10:00 Blood Pressure 187/73 06/03/17 10:00 O2 Sat by Pulse Oximetry (%) 96 06/03/17 02:48 Lab Results WBC 6.6 K/mm3 (4.0-10.0) 06/03/17 07:45 RBC 4.33 M/mm3 (3.60-5.2) 06/03/17 07:45 Hgb 13.2 GM/dL (10.7-15.3) 06/03/17 07:45 Hct 41.0 % (32.4-45.2) 06/03/17 07:45 MCV 94.7 fl (80-96) 06/03/17 07:45 MCHC 32.2 g/dl (32.0-36.0) 06/03/17 07:45 RDW 14.7 % (11.6-15.6) 06/03/17 07:45 Plt Count 205 K/MM3 (134-434) 06/03/17 07:45 Sodium 137 mmol/L (136-145) 06/03/17 07:45 Potassium 3.7 mmol/L (3.5-5.1) 06/03/17 07:45 Chloride 103 mmol/L (98-107) 06/03/17 07:45 Carbon Dioxide 26 mmol/L (21-32) 06/03/17 07:45 Anion Gap 8 (8-16) 06/03/17 07:45 BUN 15 mg/dL (7-18) D 06/03/17 07:45 Creatinine 1.0 mg/dL (0.55-1.02) 06/03/17 07:45 Random Glucose 102 mg/dL (74-106) D 06/03/17 07:45 Calcium 8.8 mg/dL (8.5-10.1) 06/03/17 07:45 w/u to date reviewed IMP: possible intestinal angina; no evidence of an acute surgical abdomen PLAN: Suggest as noted by GI to repeat CTA and then get Vascular Surgery evaluation Yannick Ribeiro MD FACS Visit type - Case Type Case Type: ED Admission - Emergency Emergency Visit: Yes ED Registration Date: 06/02/17 Care time: The patient presented to the Emergency Department on the above date and was hospitalized for further evaluation of their emergent condition. - New patient This patient is new to me today: Yes Date on this admission: 06/03/17
--- NOTE | 2017-06-03 14:36 | EKG ---
Test Reason : Blood Pressure : / mmHG Vent. Rate : 060 BPM Atrial Rate : 060 BPM P-R Int : 160 ms QRS Dur : 076 ms QT Int : 460 ms P-R-T Axes : 057 003 072 degrees QTc Int : 460 ms NORMAL SINUS RHYTHM NORMAL ECG WHEN COMPARED WITH ECG OF 22-JUN-2016 10:01, PREMATURE SUPRAVENTRICULAR COMPLEXES ARE NO LONGER PRESENT Confirmed by MARY HIDALGO MD ([id number]) on 06/03/2017 2:36:12 PM Referred By: Confirmed By:MARY HIDALGO MD
[2017-06-03] MEDS ORDERED: HYDROmorphone HCL CARPU-JECT 2 MG/1 ML DISP.SYRIN IVPB PRN (16:37)
[2017-06-03] MEDS ORDERED: hydrALAZINE HCL 20 MG/ML VIAL IVPUSH ONE (17:04)
[2017-06-03] MEDS ORDERED: hydrALAZINE HCL 20 MG/ML VIAL IVPUSH PRN (17:06)
[2017-06-03] MEDS ORDERED: hydrALAZINE HCL 20 MG/ML VIAL IVPB PRN (17:18)
[2017-06-03] MEDS ORDERED: hydrALAZINE HCL 20 MG/ML VIAL IVPB ONE (17:30)
[2017-06-03] MEDS: SODIUM CHLORIDE 1,000 ML IV SCH (17:41)
--- NOTE | 2017-06-03 22:20 | PN ---
Physical Exam: SUBJECTIVE: Patient seen and examined. She has acute LUQ pain to which she describes as a pulling sensation, it stops her from continuing with her activities. OBJECTIVE: Vital Signs Period Temp Pulse Resp BP Sys/Wright Pulse Ox Last 24 Hr 98.3 F-98.6 F 53-67 17-20 155-193/73-94 96 PE Neuro: alert, awake, cn 2-12intact Pulm: CTA bilaterally CV: s1 s2 rrr no mrg Abd: LUQ tenderness to palpation referring to back Ext: no le edema + DP pulses Laboratory Results - last 24 hr 06/03/17 06/03/17 06/03/17 07:45 07:45 07:45 WBC 6.6 RBC 4.33 Hgb 13.2 Hct 41.0 MCV 94.7 MCH 30.5 MCHC 32.2 RDW 14.7 Plt Count 205 MPV 10.2 Neutrophils % 59.1 Lymphocytes % 25.6 Monocytes % 12.3 H Eosinophils % 2.2 D Basophils % 0.8 Sodium 137 Potassium 3.7 Chloride 103 Carbon Dioxide 26 Anion Gap 8 BUN 15 D Creatinine 1.0 Creat Clearance w eGFR 52.45 Random Glucose 102 D Calcium 8.8 Phosphorus 2.3 L D Magnesium 2.0 Total Bilirubin 0.8 D Direct Bilirubin AST 39 H D ALT 21 D Alkaline Phosphatase 94 Total Protein 7.1 Albumin 3.4 Lipase 98 06/03/17 07:45 WBC RBC Hgb Hct MCV MCH MCHC RDW Plt Count MPV Neutrophils % Lymphocytes % Monocytes % Eosinophils % Basophils % Sodium Potassium Chloride Carbon Dioxide Anion Gap BUN Creatinine Creat Clearance w eGFR Random Glucose Calcium Phosphorus Magnesium Total Bilirubin 0.7 Direct Bilirubin 0.2 AST 40 H ALT 22 Alkaline Phosphatase 95 Total Protein 7.1 Albumin 3.4 Lipase Active Medications Generic Name Dose Route Start Last Admin Trade Name Freq PRN Reason Stop Dose Admin Acetaminophen 650 mg 06/02/17 18:44 Tylenol - PO Q6H PRN FEVER OR PAIN Aspirin 81 mg 06/02/17 18:45 06/03/17 11:14 Asa - PO 81 mg DAILY LISA Administration Heparin Sodium (Porcine) 5,000 unit 06/02/17 22:00 06/03/17 21:05 Heparin - SQ 5,000 unit TID LISA Administration Hydralazine HCl 10 mg 06/03/17 17:18 Apresoline Injection - IVPB Q6H PRN HYPERTENSION Hydromorphone HCl 0.5 mg 06/03/17 16:37 Dilaudid Injection - IVPB Q6H PRN PAIN Sodium Chloride 1,000 mls @ 125 mls/hr 06/02/17 11:00 06/03/17 17:41 Normal Saline - IV Not Given ASDIR LISA Nebivolol 40 mg 06/02/17 18:45 06/03/17 11:40 Bystolic - PO Not Given DAILY LISA Oxycodone HCl 5 mg 06/02/17 18:44 06/03/17 05:23 Roxicodone - PO 5 mg Q6H PRN Administration PAIN Pantoprazole Sodium 40 mg 06/03/17 10:00 06/03/17 11:14 Protonix - PO 40 mg DAILY LISA Administration Valsartan 320 mg 06/02/17 19:00 06/03/17 11:14 Diovan - PO 320 mg DAILY LISA Administration Assessment: 87 year old female with a PMH significant for labile HTN, CAD s/p stents x 2, peptic ulcer disease, diverticulitis s/p hemicolectomy (2011), and CKD admitted with acute LUQ pain Plan: 1. LUQ pain - Eval for abdominal angina - MRA rule out worsening celiac artery stenosis - No signs of bowel ischemia or acute colitis - Stop fluids and abx, observe - Surgery and GI note appreciated - D/w Vascular will see pt 2. HTN Urgency - PT refusing medications - Will stop HCTZ for now - Give hydralazine 10mg x1 now with prn orders - Continue bystolic, pt takes HS 3. MARYANN - Improved 4. Hypophosphatemia - Replete w/ kphos x2 ptks 6. CAD s/p stents - ASA - Bystolic - No statin on home meds, will inuire 7. PUD - Protonix daily 8. Pancreatic mass - Recent MRI 04/2017 with low suspicion of pancreatic malignancy, reassess in 1 year 9. PPX - Heparin sq Visit type - Emergency Visit Emergency Visit: Yes ED Registration Date: 06/03/17 Care time: The patient presented to the Emergency Department on the above date and was hospitalized for further evaluation of their emergent condition. - New Patient This patient is new to me today: Yes Date on this admission: 06/03/17 - Critical Care Critical Care patient: No
[2017-06-03] MEDS ORDERED: NEBIVOLOL 10 MG TABLET (FP) PO SCH (22:35)
[2017-06-04] MEDS: oxyCODONE HCL 5 MG TABLET PO PRN (05:58)
[2017-06-04] MEDS: HEPARIN NA (PORCINE) 5,000 UNITS/ML 1ML VIAL SQ SCH ×3 (05:58→21:57)
[2017-06-04 07:56] LABS: BASOPHIL 0.7 % (0-2.0); EOSINOPHIL 0.8 % (0-4.5); MCH 30.9 pg (25.7-33.7); MCHC 33.1 g/dl (32.0-36.0); MEAN CELL VOLUME 93.2 fl (80-96); MEAN PLT VOLUME 10.5 fl (7.5-11.1); NEUTROPHILS 66.9 % (42.8-82.8); PLATELET COUNT 234 K/MM3 (134-434); RDW 14.6 % (11.6-15.6); WHITE BLOOD COUNT 8.3 K/mm3 (4.0-10.0)
[2017-06-04 08:36] LABS: ALBUMIN 3.7 g/dl (3.4-5.0); ALK PHOS 93 U/L (45-117); ANION GAP 11 (8-16); BILIRUBIN,TOTAL 0.8 mg/dL (0.2-1.0); CALCIUM 9.5 mg/dL (8.5-10.1); CO2 25 mmol/L (21-32); CREATININE 1.2 mg/dL (0.55-1.02); GLUCOSE,RANDOM 75 mg/dL (74-106); SGOT/AST 43 U/L (15-37); SGPT/ALT 25 U/L (12-78); TOT PROT 7.2 g/dl (6.4-8.2)
[2017-06-04] MEDS: VALSARTAN 160 MG TABLET (UD) PO SCH (10:14)
[2017-06-04] MEDS: ASPIRIN 81 MG CHEWABLE TABLETS PO SCH (10:14)
--- NOTE | 2017-06-04 14:04 | PN ---
Physical Exam: SUBJECTIVE: Patient seen and examined. She continues to have pain. At rest she is moderately stable, whenever she moves the LUQ pulling sensation returns OBJECTIVE: Vital Signs Period Temp Pulse Resp BP Sys/Wright Pulse Ox Last 24 Hr 98.0 F-99.5 F 53-69 17-20 138-193/53-97 99 PE Neuro: alert, awake, cn 2-12intact Pulm: CTA bilaterally CV: s1 s2 rrr no mrg Abd: LUQ tenderness to palpation Ext: no le edema + DP pulses Laboratory Results - last 24 hr 06/04/17 06/04/17 06/04/17 06:30 06:30 06:30 WBC 8.3 RBC 4.34 Hgb 13.4 Hct 40.4 MCV 93.2 MCH 30.9 MCHC 33.1 RDW 14.6 Plt Count 234 MPV 10.5 Neutrophils % 66.9 Lymphocytes % 18.4 D Monocytes % 13.2 H Eosinophils % 0.8 Basophils % 0.7 Sodium 137 Potassium 3.6 Chloride 101 Carbon Dioxide 25 Anion Gap 11 BUN 18 Creatinine 1.2 H Creat Clearance w eGFR 42.50 Random Glucose 75 D Lactic Acid 1.4 Calcium 9.5 Phosphorus 3.0 D Total Bilirubin 0.8 AST 43 H ALT 25 Alkaline Phosphatase 93 Total Protein 7.2 Albumin 3.7 Active Medications Generic Name Dose Route Start Last Admin Trade Name Peng PRN Reason Stop Dose Admin Acetaminophen 650 mg 06/02/17 18:44 Tylenol - PO Q6H PRN FEVER OR PAIN Aspirin 81 mg 06/02/17 18:45 06/04/17 10:14 Asa - PO 81 mg DAILY LISA Administration Heparin Sodium (Porcine) 5,000 unit 06/02/17 22:00 06/04/17 05:58 Heparin - SQ 5,000 unit TID LISA Administration Hydralazine HCl 10 mg 06/03/17 17:18 06/04/17 06:19 Apresoline Injection - IVPB 10 mg Q6H PRN Administration HYPERTENSION Hydromorphone HCl 0.5 mg 06/03/17 16:37 Dilaudid Injection - IVPB Q6H PRN PAIN Sodium Chloride 1,000 mls @ 125 mls/hr 06/02/17 11:00 06/03/17 17:41 Normal Saline - IV Not Given ASDIR LISA Nebivolol 40 mg 06/04/17 22:00 Bystolic - PO HS LISA Oxycodone HCl 5 mg 06/02/17 18:44 06/04/17 05:58 Roxicodone - PO 5 mg Q6H PRN Administration PAIN Valsartan 320 mg 06/02/17 19:00 06/04/17 10:14 Diovan - PO 320 mg DAILY LISA Administration Assessment: 87 year old female with a PMH significant for labile HTN, CAD s/p stents x 2, peptic ulcer disease, diverticulitis s/p hemicolectomy (2011), and CKD admitted with acute LUQ pain Plan: 1. LUQ pain - Eval for intestinal angina - MRA rule out worsening celiac artery stenosis done today, report pending - Vascular will see pt 2. HTN Urgency - Improved - Continue diovan 320mg daily - Resume HCTZ tomorrow - Continue Bystolic - Hydralazine 10mg prn BP parameters 3. MARYANN - Labile, will monitor 4. Hypophosphatemia - Resolved 6. CAD s/p stents - ASA - Bystolic - No statin on home meds, will inquire 7. PUD - Protonix daily 8. Pancreatic mass - Recent MRI 04/2017 with low suspicion of pancreatic malignancy, reassess in 1 year 9. PPX - Heparin sq Visit type - Emergency Visit Emergency Visit: Yes ED Registration Date: 06/03/17 Care time: The patient presented to the Emergency Department on the above date and was hospitalized for further evaluation of their emergent condition. - New Patient This patient is new to me today: No - Critical Care Critical Care patient: No
[2017-06-04] MEDS: SODIUM CHLORIDE 1,000 ML IV SCH (14:20)
--- NOTE | 2017-06-04 18:16 | PN ---
GI Progress Note Subjective: No acute events Some pain persists. Ms. Rodriguez describes it as occurring with movement as opposed to after meals and would like to eat more than clear liquids. - Objective Vital Signs: Vital Signs Temperature 98.6 F 06/04/17 13:14 Pulse Rate 69 06/04/17 08:30 Respiratory Rate 20 06/04/17 13:14 Blood Pressure 148/75 06/04/17 13:14 O2 Sat by Pulse Oximetry (%) 99 06/04/17 02:00 Constitutional: Calm Eyes: No: Sclera Icterus Cardiovascular: Yes: Regular Rate and Rhythm, Murmur Respiratory: Yes: CTA Bilaterally Gastrointestinal Inspection: Yes: Scars (pelvic). No: Distention ...Auscultate: Yes: Normoactive Bowel Sounds ...Palpate: No: Hepatomegaly, Splenomegaly, Tenderness Edema: No (No LE edema) Labs: CBC, BMP 06/04/17 06:30 06/04/17 06:30 Hepatic Panel Total Bilirubin 0.8 mg/dL (0.2-1.0) 06/04/17 06:30 Direct Bilirubin 0.2 mg/dL (0.0-0.2) 06/03/17 07:45 AST 43 U/L (15-37) H 06/04/17 06:30 ALT 25 U/L (12-78) 06/04/17 06:30 Alkaline Phosphatase 93 U/L (45-117) 06/04/17 06:30 Albumin 3.7 g/dl (3.4-5.0) 06/04/17 06:30 Problem List - Problems (1) Abdominal pain Assessment/Plan: Clinically asymptomatic currently with worsened positional pain at times. Awaiting MRI/MRA of the abdomen and would consider advancing to full liquids pending results. Previous notes from office and EUS results from 10/07 were provided in chart for review. No pancreatic mass noted on EUS. Ms. Rodriguez was recalled by [place] by 's office for repeat EUS vs. MRI 05/09 given previous imaging findings. CA 19-9 ordered Code(s): R10.9 - UNSPECIFIED ABDOMINAL PAIN
[2017-06-04] MEDS ORDERED: PT OWN MED DRAWER 7, Y5N ONE ×2 (21:03→21:58)
[2017-06-04] MEDS: NEBIVOLOL 10 MG TABLET (FP) PO SCH (21:56)
[2017-06-05] MEDS: HEPARIN NA (PORCINE) 5,000 UNITS/ML 1ML VIAL SQ SCH ×3 (06:00→21:39)
--- NOTE | 2017-06-05 08:32 | CONSULT ---
Consult - History of Present Illness History of Present Illness: 87 year old woman with left sided abdominal pain. She has history of known visceral vascular disease. Her pain is not post-prandial and radiates to left flank. No nausea or vomiting reported. She has been evaluated for a pancreatic mass with no diagnosis to date. - Past Medical History Cardio/Vascular: Yes: CAD, HTN, Hyperlipdemia, Other Gastrointestinal: Yes: Constipation, Diverticulosis, Peptic Ulcer Disease, Other Renal/: Yes: Renal Inusuff - Past Surgical History Past Surgical History: Yes: Carotid Endarterectomy, Colectomy, Stent - Alcohol/Substance Use Hx Alcohol Use: No History of Substance Use: reports: None - Smoking History Smoking history: Former smoker Have you smoked in the past 12 months: No Aproximately how many cigarettes per day: 20 If you are a former smoker, when did you quit?: 30 YRS AGO - Social History ADL: Independent History of Recent Travel: No Home Medications - Allergies Allergies/Adverse Reactions: Allergies Allergy/AdvReac Type Severity Reaction Status Date / Time cephalexin monohydrate Allergy Rash Verified 06/02/17 07:24 [From Keflex] clarithromycin [From Biaxin] AdvReac Verified 06/02/17 07:24 - Home Medications Home Medications: Ambulatory Orders Olmesartan Medoxomil [Benicar -] 40 mg PO DAILY #0 tablet 06/03/12 Aspirin [ASA -] 81 mg PO DAILY tab.chew 03/27/15 Hydrochlorothiazide [Hctz -] 12.5 mg PO DAILY 06/02/17 Nebivolol HCl [Bystolic] 40 mg PO DAILY 06/02/17 Family Disease History - Family Disease History Family Disease History: Diabetes: Father, Mother, Heart Disease: Father, CA: Mother Physical Exam Vital Signs: Vital Signs Temperature 98.0 F 06/05/17 06:00 Pulse Rate 54 L 06/05/17 06:00 Respiratory Rate 20 06/05/17 06:00 Blood Pressure 139/64 06/05/17 06:00 O2 Sat by Pulse Oximetry (%) 99 06/04/17 02:00 Constitutional: Yes: No Distress Eyes: Yes: EOM Intact Neck: Yes: Supple Cardiovascular: Yes: Regular Rate and Rhythm Respiratory: Yes: Regular Gastrointestinal: Yes: Soft, Other (Mild left upper quadrant tendderness, no guarding) Edema: No Labs: CBC, BMP 06/04/17 06:30 06/04/17 06:30 Imaging - Results MRI: Image Reviewed (Moderate (<70%) stenosis of proximal celaic artery. SMA widely patent, ANA PAULA probably occlusded.) Problem List - Problems (1) Celiac artery stenosis Assessment/Plan: History and MR findings do not suggest a mesenteric ischemic syndrome. Pain likely due to intrinsic disease of colon or possible radicular pain from spinal stenosis. No vascular intervention is indicated at this time. Code(s): I77.4 - CELIAC ARTERY COMPRESSION SYNDROME
[2017-06-05] MEDS: VALSARTAN 160 MG TABLET (UD) PO SCH (09:35)
[2017-06-05] MEDS: ASPIRIN 81 MG CHEWABLE TABLETS PO SCH (09:35)
--- NOTE | 2017-06-05 13:24 | MSN ---
Progress Note (short form) - Note Progress Note: SUBJECTIVE CC: LLQ pain radiating to L flank and back HPI: 87 y/o F with PMHx CAD s/p stents x2, diverticulitis s/p hemicolectomy ( 2011), CKD who was admitted to [facility] for left lower quadrant pain radiating to L flank and back. Patient seen and examined today. Pt c/o mild positional abdominal pain, improved from admission, no pain at rest. Pt states she had 1 bout of watery brown diarrhea this AM. She reports being able to tolerate her clear liquid diet and is unsure if she is able to tolerate her full liquids. OBJECTIVE Last Vital Signs Temp Pulse Resp BP Pulse Ox 98.0 F 64 20 131/60 99 06/05/17 06:00 06/05/17 10:00 06/05/17 10:00 06/05/17 10:00 06/04/17 02:00 Head: Atraumatic. Eyes: PERRLA with no afferent pupillary defect. No conjunctival pallor. Throat: Moist mucus membranes. Moist tongue. Heart: Regular rate. S1/S2 with possible S4 vs irregularly irregular rhythm. Lungs: Clear to auscultation B/L with no wheezes, rales or rhonchi. Abdomen: Normoactive bowel sounds in all four quadrants. Nondistended. Nontender to light palpation in all four quadrants. Tender to deep palpation in LLQ and L flank. Extremities: 2+ radial pulses. 2+ DP pulses. No cyanosis, clubbing or edema in UE and LE. CBC, BMP 06/04/17 06:30 06/04/17 06:30 Hepatic Panel Total Bilirubin 0.8 mg/dL (0.2-1.0) 06/04/17 06:30 Direct Bilirubin 0.2 mg/dL (0.0-0.2) 06/03/17 07:45 AST 43 U/L (15-37) H 06/04/17 06:30 ALT 25 U/L (12-78) 06/04/17 06:30 Alkaline Phosphatase 93 U/L (45-117) 06/04/17 06:30 Albumin 3.7 g/dl (3.4-5.0) 06/04/17 06:30 Active Medications Generic Name Dose Route Start Last Admin Trade Name Freq PRN Reason Stop Dose Admin Acetaminophen 650 mg 06/02/17 18:44 06/05/17 11:48 Tylenol - PO 650 mg Q6H PRN Administration FEVER OR PAIN Aspirin 81 mg 06/02/17 18:45 06/05/17 09:35 Asa - PO 81 mg DAILY LISA Administration Heparin Sodium (Porcine) 5,000 unit 06/02/17 22:00 06/05/17 06:00 Heparin - SQ 5,000 unit TID LISA Administration Hydralazine HCl 10 mg 06/03/17 17:18 06/04/17 06:19 Apresoline Injection - IVPB 10 mg Q6H PRN Administration HYPERTENSION Hydromorphone HCl 0.5 mg 06/03/17 16:37 Dilaudid Injection - IVPB Q6H PRN PAIN Sodium Chloride 1,000 mls @ 125 mls/hr 06/02/17 11:00 06/04/17 14:20 Normal Saline - IV Not Given ASDIR LISA Nebivolol 40 mg 06/04/17 22:00 06/04/17 21:56 Bystolic - PO 40 mg HS LISA Administration Oxycodone HCl 5 mg 06/02/17 18:44 06/04/17 05:58 Roxicodone - PO 5 mg Q6H PRN Administration PAIN Valsartan 320 mg 06/02/17 19:00 06/05/17 09:35 Diovan - PO 320 mg DAILY LISA Administration Home Medications Medication Instructions Recorded Olmesartan Medoxomil [Benicar -] 40 mg PO DAILY #0 tablet 06/03/12 Aspirin [ASA -] 81 mg PO DAILY tab.chew 03/27/15 Hydrochlorothiazide [Hctz -] 12.5 mg PO DAILY 06/02/17 Nebivolol HCl [Bystolic] 40 mg PO DAILY 06/02/17 CTAP: mild concentric thickening of transvere colon; 2.7 cm pancreatic tail mass & dilation of main pancreatic duct. Abd MRI: aortic iliac and mesenteric arterial atherosclerotic disease. atherosclerotic disease 50-70% stenosis @ origin of celiac trunk and mild aspect of SMA prox to branching. patent SMA with atherosclerotic disease at origin. B/L renal a. disease resulting in <50% stenosis. ASSESSMENT 87 y/o F with PMHx CAD s/p stents x2, diverticulitis s/p hemicolectomy (2011), CKD who was admitted to [facility] for left lower quadrant pain radiating to L flank and back. She was admitted for possible colitis, dysuria, pancreatic mass with pancreatic and hepatic bile duct dilatation. PLAN 1. Left lower quadrant pain of uncertain etiology likely 2/2 intestinal angina vs. radicular pain from spinal stenosis. - continue pain control with Tylenol and Dilaudid; pain well controlled, no adjustments needed at this time. - Dr Mccall rec reviewed - no vascular intervention needed. - pt will need close outpt f/u with GI - diarrhea likely 2/2 phosphate replenishment. 2. Labile hypertension, chronic - continue Valsartan, Bystolic, Apresoline; BP well controlled, no adjustments needed. 3. Coronary artery disease s/p stents - Heart rhythm sounded irregularly irregular as per Dr. Slois and Dr. Arevalo. Heart rhythm sounded regularly regular to me on examination. Pt does not report hx of Afib. EKG at admission was normal sinus rhythm; ordered repeat EKG to r/o a-fib vs. paroxysmal a-fib. - continue ASA, Bystolic - Pt not on statin due to severe myalgias; will need outpt f/u with primary agricultural purchasing agent for lipid control. 4. Peptic ulcer disase - Avoid PPI in setting of previous C. diff colitis as per GI recommendations. 5. Pancreatic mass - Pt has undergone outpt EUS which was negative for malignancy. - Ca 19-[address] August; f/u to r/o recurrence - pt will require MRI to reassess in 1 year as per GI. 6. DVT prophylaxis: SQ heparin 5000U TID; oob; ambulation 7. Dispo: patient okay to discharge after GI approval Kanwal Guerrero, OMS-3
--- NOTE | 2017-06-05 16:06 | PN ---
Teaching Attending Note Name of Resident: German Arevalo ATTENDING PHYSICIAN STATEMENT I saw and evaluated the patient. I reviewed the resident's note and discussed the case with the resident. I agree with the resident's findings and plan as documented. SUBJECTIVE:continues to have intermittent L flank pain exacerbated with movement. not exacerbated by eating. 1 loose BM this am. tolerating full liquid diet. denies Cp, SOB, fever, chills, N/V/C OBJECTIVE: Last Vital Signs Temp Pulse Resp BP Pulse Ox 98.1 F 78 18 121/73 99 06/05/17 14:19 06/05/17 14:19 06/05/17 14:19 06/05/17 14:19 06/04/17 02:00 General NAD CV S1 S2 irregular no murmur lungs CTA B/L no wheezing/rales/rhonchi Abdomen soft +L flank tenderness no epigastric or LUQ tenderness no rebound or guarding. no distention. normoactive BS ASSESSMENT AND PLAN: 87yo F wtih PMH HTN, CAD s/p stent, PUD and diverticulitis s/p hemicolectomy presneted to the ER presented to the ER with LLQ Pain radiating to the back 1. L flank pain- possible radicular pain vs intestinal angina however the latter less likely as not worse with eating. MRI/MRA reviewed. evaluated by vascular surgery whom does not believe intervention at this time. will speak with GI if any other workup required at this time and if can advance to regular diet. pain is controlled with minimal dose of percocet. PT eval once tolerating diet can d/c IVF 2. Diarrhea- possible neutrophos induced. improving per pt. low suspicion for cdiff at this time. will monitor 3. Pancreatic mass- s/p EUS as outpatient and negative for malignancy. CA 19-9 pending. will need periodic surveillance to monitor size 4. MARYANN- initial dehydration but now likely medication induced. on very high ARB dosing. will reduce at this time and monitor. 5. HTN- improved. however ARB will be reduced and liekly to affect HTN. will monitor and may need to add additional agent. hydralazine prn (only 1x given yesterday) 6. Irregualr HR- reports no hx of afib. NSR on admission EKG. will repeat. 7. CAD s/p stent- stable. cont asa 8. PUD- hold PPI as this can increase risk of cdiff. 9. DVT ppx- hep sq
--- NOTE | 2017-06-05 16:58 | PN ---
GI Progress Note Subjective: Still with pain in upper abdomen. Tolerating PO No acute events Evaluated by vascular surgery. No interventions planned - Objective Vital Signs: Vital Signs Temperature 98.1 F 06/05/17 14:19 Pulse Rate 78 06/05/17 14:19 Respiratory Rate 18 06/05/17 14:19 Blood Pressure 121/73 06/05/17 14:19 O2 Sat by Pulse Oximetry (%) 99 06/04/17 02:00 Constitutional: Calm Eyes: No: Sclera Icterus Cardiovascular: Yes: Regular Rate and Rhythm, Murmur Respiratory: Yes: CTA Bilaterally Gastrointestinal Inspection: No: Distention ...Auscultate: Yes: Normoactive Bowel Sounds ...Palpate: No: Hepatomegaly, Splenomegaly, Tenderness Edema: No (No LE edema) Labs: CBC, BMP 06/04/17 06:30 06/04/17 06:30 Hepatic Panel Total Bilirubin 0.8 mg/dL (0.2-1.0) 06/04/17 06:30 Direct Bilirubin 0.2 mg/dL (0.0-0.2) 06/03/17 07:45 AST 43 U/L (15-37) H 06/04/17 06:30 ALT 25 U/L (12-78) 06/04/17 06:30 Alkaline Phosphatase 93 U/L (45-117) 06/04/17 06:30 Albumin 3.7 g/dl (3.4-5.0) 06/04/17 06:30 Laboratory Tests 06/05/17 07:15 CA 19-9 Antigen Pending Problem List - Problems (1) Abdominal pain Assessment/Plan: Evaluated by vascular surgery. No interventions planned Pain not related to meals and seems to be constant. not fitting chronic mesenteric ischemia picture Suspect pain related to ? distal pancreatic / peripancreatic mass. Ms. Rodriguez is aware that this could represent a pancreatic cancer. Discussed recent MRI findings and Ms. Rodriguez's current clinical course with from [facility]. Will have her office call Ms. Rodriguez to arrange f/u EUS next week at [facility]. gave her Ms. Rodriguez's cell phone number. [phone]. If pain cannot be managed then would attempt direct transfer to [facility] for continued work- up as an outpatient Awaiting CA 19-9 Faxed MRI, MRA and CT scan reports to 's office # [phone] Code(s): R10.9 - UNSPECIFIED ABDOMINAL PAIN
[2017-06-05] MEDS: oxyCODONE HCL 5 MG TABLET PO PRN (18:43)
[2017-06-05] MEDS: SODIUM CHLORIDE 1,000 ML IV SCH (18:44)
--- NOTE | 2017-06-05 19:05 | PN ---
Physical Exam: SUBJECTIVE: Patient seen and examined at bedside. Patient states that her abdominal pain has improved and that she is able to tolerate her food (full liquids). States that she had 1 episode of diarrhea earlier today. Denies chest pain, shortness of breath, nausea, vomiting. OBJECTIVE: Vital Signs Period Temp Pulse Resp BP Sys/Wright Pulse Ox Last 24 Hr 98.0 F-98.1 F 54-112 18-20 121-149/60-73 GENERAL: The patient is awake, alert, and fully oriented, in no acute distress. HEAD: Normal with no signs of trauma. EYES: PERRL, extraocular movements intact, sclera anicteric, conjunctiva clear. No ptosis. LUNGS: Breath sounds equal, clear to auscultation bilaterally, no wheezes, no crackles, no accessory muscle use. HEART: Regular rate, irregular rhythm noted on exam, S1, S2 without murmur, rub or gallop. ABDOMEN: Soft, mildly tender in the left lower quadrant, mildly nondistended, normoactive bowel sounds, no guarding, no rebound, no hepatosplenomegaly, no masses. EXTREMITIES: 2+ pulses, warm, well-perfused, no edema. Active Medications Generic Name Dose Route Start Last Admin Trade Name Freq PRN Reason Stop Dose Admin Acetaminophen 650 mg 06/02/17 18:44 06/05/17 11:48 Tylenol - PO 650 mg Q6H PRN Administration FEVER OR PAIN Aspirin 81 mg 06/02/17 18:45 06/05/17 09:35 Asa - PO 81 mg DAILY LISA Administration Heparin Sodium (Porcine) 5,000 unit 06/02/17 22:00 06/05/17 11:10 Heparin - SQ 5,000 unit TID LISA Administration Hydralazine HCl 10 mg 06/03/17 17:18 06/04/17 06:19 Apresoline Injection - IVPB 10 mg Q6H PRN Administration HYPERTENSION Sodium Chloride 1,000 mls @ 125 mls/hr 06/02/17 11:00 06/05/17 18:44 Normal Saline - IV Not Given ASDIR LISA Nebivolol 40 mg 06/04/17 22:00 06/04/17 21:56 Bystolic - PO 40 mg HS LISA Administration Oxycodone HCl 5 mg 06/02/17 18:44 06/05/17 18:43 Roxicodone - PO 5 mg Q6H PRN Administration PAIN Valsartan 160 mg 06/06/17 10:00 Diovan - PO DAILY LISA IMAGING: CTA: no significant stenosis in the abdominal arteries ASSESSMENT/PLAN: This is an 87 year old with PMHx CAD s/p stents x2, diverticulitis s/p hemicolectomy (2011), CKD admitted to the hospital for left lower quadrant pain. #Abdominal Pain: likely 2/2 intestinal angina -Pain control with tylenol and dilaudid -Appreciate vascular recommendations, no intervention necessary -continue IV hydration #Hypertension: controlled -continue Valsartan -continue Bystolic -continue Apresoline; #CAD: s/p stents -NSR on admission EKG; abnormal rhythm detected on physical exam -continue aspirin 81mg -no statin due to myalgias #PUD history: -patient should avoid PPI due to hx of cdiff colitis #Pancreatic mass: -MRI in previous admission showed pancreatic mass -EUS did not reveal that -Dr. August consult appreciated, will require another MRI in 1 year after discharge #Prophylaxis: -heparin 5000 subq TID #Disposition: -continue to monitor on med-surg -discharge planning for tomorrow given patient remains stable Visit type - Emergency Visit Emergency Visit: No - New Patient This patient is new to me today: Yes Date on this admission: 06/05/17 - Critical Care Critical Care patient: No
[2017-06-05] MEDS ORDERED: PT OWN MED DRAWER 7, Y5N ONE (21:19)
[2017-06-05] MEDS: NEBIVOLOL 10 MG TABLET (FP) PO SCH (21:40)
[2017-06-06] MEDS: HEPARIN NA (PORCINE) 5,000 UNITS/ML 1ML VIAL SQ SCH (06:13)
[2017-06-06 09:09] LABS: MCH 30.4 pg (25.7-33.7); MCHC 31.9 g/dl (32.0-36.0); MEAN CELL VOLUME 95.2 fl (80-96); MEAN PLT VOLUME 10.7 fl (7.5-11.1); PLATELET COUNT 221 K/MM3 (134-434); RDW 14.6 % (11.6-15.6); WHITE BLOOD COUNT 7.6 K/mm3 (4.0-10.0)
[2017-06-06 09:35] LABS: ANION GAP 11 (8-16); CALCIUM 9.2 mg/dL (8.5-10.1); CO2 21 mmol/L (21-32); CREATININE 1.3 mg/dL (0.55-1.02); GLUCOSE,RANDOM 111 mg/dL (74-106)
[2017-06-06] MEDS: ASPIRIN 81 MG CHEWABLE TABLETS PO SCH (09:43)
[2017-06-06] MEDS ORDERED: VALSARTAN 160 MG TABLET (UD) PO SCH (10:00)
[2017-06-06 11:15] VITALS: TEMP 98
[2017-06-06] MEDS: SODIUM CHLORIDE 1,000 ML IV SCH (12:09)
[2017-06-06] MEDS: oxyCODONE HCL 5 MG TABLET PO PRN (12:11)
--- NOTE | 2017-06-06 12:21 | PN ---
Teaching Attending Note Name of Resident: German Arevalo ATTENDING PHYSICIAN STATEMENT I saw and evaluated the patient. I reviewed the resident's note and discussed the case with the resident. I agree with the resident's findings and plan as documented. SUBJECTIVE:tolerating regular food. has L flank pain on movement. no related to eating. admits to occasional palpitations last only seconds not assoc with CP. denies CP, SOB< fever, chills, N/V/C/D OBJECTIVE: Last Vital Signs Temp Pulse Resp BP Pulse Ox 98.0 F 57 L 20 168/59 99 06/06/17 10:00 06/06/17 10:00 06/06/17 10:00 06/06/17 10:00 06/04/17 02:00 General NAD CV S1 S2 RRR no murmur lungs CTA B/L no wheezing/rales/rhonchi Abdomen soft +L flank tenderness no epigastric or LUQ tenderness no rebound or guarding. no distention. normoactive BS ASSESSMENT AND PLAN: 87yo F wtih PMH HTN, CAD s/p stent, PUD and diverticulitis s/p hemicolectomy presneted to the ER presented to the ER with LLQ Pain radiating to the back 1. L flank pain- possible radicular pain vs pancreatic mass. tolerating regular food. CA 19-9 normal level. will need to f/u with GI for further workup and management. will give 3 day course of percocet. 2. Diarrhea- possible neutrophos induced. now resolved 3. Pancreatic mass- s/p EUS as outpatient and negative for malignancy. CA 19-9 normal. will need periodic surveillance to monitor size 4. MARYANN- initial dehydration but now likely medication induced. on very high ARB dosing. slight uptrend from baseline. now ARB reduced. should have kidney function checked next week by PMD 5. HTN- above goal. will have repeat and see on reduced antihypertensives. if necessary will start norvasc. 6. Irregualr HR- today sounds regular. ekg showing some PAC. encouraged to f/u with cardilogist if having intermittent symptoms to see if correlates with PAC 7. CAD s/p stent- stable. cont asa 8. PUD- hold PPI as this can increase risk of cdiff. 9. DVT ppx- hep sq 10. d/c planning today if repeat BP controlled.
[2017-06-06 12:22] VITALS: BP 150/57; PULSE 59
--- NOTE | 2017-06-06 14:24 | MSN ---
Progress Note (short form) - Note Progress Note: SUBJECTIVE CC: LLQ pain radiating to L flank and back HPI: Patient seen and examined this AM. Pt still c/o mild positional abdominal pain and back pain, improved from yesterday, no pain at rest. Pt reports no diarrhea this AM, greatly improved from admission. She states being able to tolerate full liquid diet well, was able to tolerate both full liquid and regular diet breakfast this AM. Pt denies n/v. She reports a history of palpitations "once in a while", feeling light headed when waking up in the AM. She denies palpitations, dizziness during her stay at [facility]. Pt was advised to follow up with her lithographic press operator as outpt. OBJECTIVE Last Vital Signs Temp Pulse Resp BP Pulse Ox 98.0 F 59 L 20 150/57 99 06/06/17 10:00 06/06/17 12:21 06/06/17 12:21 06/06/17 12:21 06/04/17 02:00 Head: Atraumatic. Eyes: PERRLA with no afferent pupillary defect. No conjunctival pallor. Throat: Moist mucus membranes. Moist tongue. Heart: Regular rate. S1/S2 with possible S4 and irregular beats. Lungs: Clear to auscultation B/L with no wheezes, rales or rhonchi. Abdomen: Normoactive bowel sounds in all four quadrants. Nondistended. Nontender to light palpation in all four quadrants. Tender to deep palpation in LLQ and L flank. Extremities: 2+ radial pulses. 2+ DP pulses. No cyanosis, clubbing or edema in UE and LE. CBC, BMP 06/06/17 09:02 06/06/17 09:02 Abnormal Lab Results 06/06/17 06/06/17 09:02 09:02 MCHC 31.9 L BUN 24 H D Creatinine 1.3 H Random Glucose 111 H D Active Medications Generic Name Dose Route Start Last Admin Trade Name Freq PRN Reason Stop Dose Admin Acetaminophen 650 mg 06/02/17 18:44 06/05/17 11:48 Tylenol - PO 650 mg Q6H PRN Administration FEVER OR PAIN Aspirin 81 mg 06/02/17 18:45 06/06/17 09:43 Asa - PO 81 mg DAILY LISA Administration Heparin Sodium (Porcine) 5,000 unit 06/02/17 22:00 06/06/17 06:13 Heparin - SQ 5,000 unit TID LISA Administration Hydralazine HCl 10 mg 06/03/17 17:18 06/04/17 06:19 Apresoline Injection - IVPB 10 mg Q6H PRN Administration HYPERTENSION Sodium Chloride 1,000 mls @ 125 mls/hr 06/02/17 11:00 06/06/17 12:09 Normal Saline - IV Not Given ASDIR LISA Nebivolol 40 mg 06/04/17 22:00 06/05/17 21:40 Bystolic - PO 40 mg HS LISA Administration Oxycodone HCl 5 mg 06/02/17 18:44 06/06/17 12:11 Roxicodone - PO 5 mg Q6H PRN Administration PAIN Valsartan 160 mg 06/06/17 10:00 06/06/17 09:42 Diovan - PO 160 mg DAILY LISA Administration ASSESSMENT 87 y/o F with PMHx CAD s/p stents x2, diverticulitis s/p hemicolectomy (2011), CKD who was admitted to [facility] for left lower quadrant pain radiating to L flank and back. She was admitted for possible colitis, dysuria, pancreatic mass with pancreatic and hepatic bile duct dilatation. PLAN 1. Left lower quadrant pain of uncertain etiology likely 2/2 intestinal angina vs. radicular pain from spinal stenosis. - continue pain control with oxycodone & tylenol; pain well controlled, no adjustments needed at this time. Pt will be d/c with 3 days worth of oxycodone; risks explained to pt. - greatly improved from admission. All electrolytes wnl; BUN, Cr at pt baseline. Patient able to tolerate regular diet. - As per vascular consult, no vascular intervention needed. - Dr. August saw pt yesterday, discussed MRI and hospital course with from [facility]; pt will f/u as outpt. - diarrhea has now resolved. 2. Labile hypertension, chronic - continue Valsartan, Bystolic, Apresoline; BP well controlled, no adjustments needed. 3. Coronary artery disease s/p stents - Heart rhythm has irregular beats. Pt does not report hx of Afib. EKG at admission was normal sinus rhythm; repeat EKG shows some PACs and sinus rhythm. - Pt will f/u with lithographic press operator as outpt. - continue ASA, Bystolic - Pt not on statin due to severe myalgias; will need outpt f/u with primary lithographic press operator for lipid control. 4. Peptic ulcer disase - Avoid PPI in setting of previous C. diff colitis as per GI recommendations. 5. Pancreatic mass - Pt has undergone outpt EUS which was negative for malignancy. - Ca 19-9 26 wnl. pt will require MRI to reassess in 1 year as per GI. 6. DVT prophylaxis: SQ heparin 5000U TID; oob; ambulation 7. Dispo: D/C to home. Kanwal Guerrero, OMS-3
--- NOTE | 2017-06-07 00:23 | DS ---
Physical Exam: SUBJECTIVE: Patient seen and examined at bedside. Patient had some mild residual abdominal pain on the left side, but much improved over the day before. She was tolerating her diet in the morning after receiving both liquids and solids. Denies chest pain, shortness of breath, nausea, vomiting, diarrhea. OBJECTIVE: Vital Signs Period Temp Pulse Resp BP Sys/Wright Pulse Ox Last 24 Hr 97.6 F-98.0 F 56-59 20-20 150-168/57-67 PHYSICAL EXAM GENERAL: The patient is awake, alert, and fully oriented, in no acute distress. HEAD: Normal with no signs of trauma. LUNGS: Breath sounds equal, clear to auscultation bilaterally, no wheezes, no crackles, no accessory muscle use. HEART: Regular rate, regular rhythm, S1, S2 without murmur, rub or gallop. ABDOMEN: Soft, mildly tender in the left lower quadrant, improved over yesterday , nondistended, normoactive bowel sounds, no guarding, no rebound, no hepatosplenomegaly, no masses. EXTREMITIES: 2+ pulses, warm, well-perfused, no edema. LABS Laboratory Results - last 24 hr 06/05/17 06/06/17 06/06/17 07:15 09:02 09:02 WBC 7.6 RBC 4.27 Hgb 13.0 Hct 40.6 MCV 95.2 MCH 30.4 MCHC 31.9 L RDW 14.6 Plt Count 221 MPV 10.7 Sodium 137 Potassium 4.2 Chloride 105 Carbon Dioxide 21 Anion Gap 11 BUN 24 H D Creatinine 1.3 H Random Glucose 111 H D Calcium 9.2 CA 19-9 Antigen 26 HOSPITAL COURSE: Date of Admission:06/03/17 This is an 87 year old female with a past medical history of CAD s/p stents x2, diverticulitis s/p hemicolectomy (2011), CKD who presented to the hospital for left lower quadrant pain that radiated to her back. On admission patient had a few liquid bowel movements but no overt diarrhea. An MRI completed a week prior revealed pancreatic tail mass. Patient was evaluated by both general surgery and vascular surgery. An MRI/MRA of her abdominal vasculature did not reveal any significant stenosis that would incite intestinal angina. Surgery and Vascular both agreed that this was not a surgical abdomen and was able to be treated medically. GI saw patient and suggested that it is possible that her pain stems from the pancreatic mass itself. Patient was put on clear liquid diet , which she tolerated quite well. Patient was then given a trial of solid foods on the day of discharge, which she again tolerated without any trouble. Patient was discharged with instructions to follow with her personal inspector experimental assembly at [facility] and to follow up with another MRI in 1 year. Date of Discharge: 06/07/17 Minutes to complete discharge: 35 Discharge Summary Reason For Visit: ACUTE COLITIS Condition: Stable - Instructions Diet, Activity, Other Instructions: You were treated in the hospital for abdominal pain. You received workup to determine the cause of the pain. It was determined that you don't have any significant blockages in your abdominal arteries that would cause you to experience this pain. Your MRI showed that you have a mass on the tail of your pancreas. We measured the level of an enzyme called CA 19-9 in your blood that can sometimes help determine the progression of the mass, and we found this level to be normal in your blood. We recommend you follow with your personal inspector experimental assembly at [facility]. was faxed your medical information so that when you make an appointment, they will already have the necessary clinical data to manage your care further. Medical Recommendations: -You can return to your regular diet. Make sure to watch how you tolerate certain foods. Watch for pain, nausea, vomiting, constipation and/or diarrhea. If you experience these symptoms, please cut back on what you are eating and give your bowels time to rest. -You can take Miralax at home to help you have bowel movements -We will prescribe you 3 days of Percocet, a narcotic pain medication in case you are still experiencing pain. -Make sure to follow with your primary care physician in regards to managing your blood pressure. Referrals: -Make an appointment to see your primary care physician within 1 week of discharge. You should have your kidney function checked as it was slightly above your normal level. -Make an appointment with your inspector experimental assembly after you are discharged from the hospital -The office number is [phone] Disposition: VNS/HOME HEALTH CARE - Home Medications Comprehensive Discharge Medication List: Ambulatory Orders Olmesartan Medoxomil [Benicar -] 40 mg PO DAILY #0 tablet 06/03/12 Aspirin [ASA -] 81 mg PO DAILY tab.chew 03/27/15 Hydrochlorothiazide [Hctz -] 12.5 mg PO DAILY 06/02/17 Nebivolol HCl [Bystolic] 40 mg PO DAILY 06/02/17 Oxycodone HCl/Acetaminophen [Percocet 5-325 mg Tablet] 1 tab PO Q6H PRN #12 tablet MDD 20 06/06/17 Oxycodone HCl/Acetaminophen [Percocet 5-325 mg Tablet] 1 tab PO Q6H PRN #12 tablet MDD 4 tablets 06/06/17 Polyethylene Glycol 3350 [Miralax (For Daily Use) -] 17 gm PO DAILY #1 bottle This patient is new to me today: No Emergency Visit: No Critical Care patient: No - Discharge Referral Referred to [facility] No
== END 2017-06-06 13:45 | disposition home health service (06) | DRG 439 ==
LOC: JER 07:13 → JERBED 15:55 → INTOOBSV 15:55 → UNDOADMOB 15:55 → JERBED 17:50 → UNDOADMOB 18:45 → J6S 19:54 → OBSVTOIN 06-03 17:07
PROVIDERS: ADMIT Hospitalist; ATTEND Internal Medicine
DX: K86.89 Other specified diseases of pancreas (principal); N17.9 Acute kidney failure, unspecified; I77.4 Celiac artery compression syndrome; K52.1 Toxic gastroenteritis and colitis; I25.10 Atherosclerotic heart disease of native coronary artery without angina pectoris; I12.9 Hypertensive chronic kidney disease with stage 1 through stage 4 chronic kidney disease, or unspecified chronic kidney disease; N18.3 Chronic kidney disease, stage 3 (moderate); K27.9 Peptic ulcer, site unspecified, unspecified as acute or chronic, without hemorrhage or perforation; K44.9 Diaphragmatic hernia without obstruction or gangrene; K62.1 Rectal polyp; I16.0 Hypertensive urgency; E83.39 Other disorders of phosphorus metabolism; K57.90 Diverticulosis of intestine, part unspecified, without perforation or abscess without bleeding; E78.00 Pure hypercholesterolemia, unspecified; K59.09 Other constipation; Z87.891 Personal history of nicotine dependence; Z95.5 Presence of coronary angioplasty implant and graft; R10.9 Unspecified abdominal pain; T50.995A Adverse effect of other drugs, medicaments and biological substances, initial encounter
CPT/HCPCS: 36415; 71010-TC; 74177-TC; 80048; 80053; 80076; 81003; 81015; 83605; 83690; 83735; 84100; 85025; 85027; 86301; 87086; 93005; 93010; 97116-GP; 97161-GP; 99284-25; C1887; C8902; G0378; J1644

== ENCOUNTER 2019-03-14 05:55 | Inpatient (IN) | payer OTHER, MEDICARE ==
--- NOTE | 2019-03-14 07:47 | PDOC ---
History of Present Illness - General Chief Complaint: Chest Pain Stated Complaint: CHEST PAIN Time Seen by Provider: 03/14/19 06:33 History Source: Patient - History of Present Illness Initial Comments: Kristi Rodarte is an 89 y/o woman with hx CAD with multiple stenting, HTN, CKD, p/w chest pain that awoke her from sleep. She denies any prior similar episode of pain in the past. She reports that the pain is in the center of her chest, described as an ache, radiating to her back, 10/10 severity. She reports going back to sleep with the pain, and becoming concerned when the pain persisted this morning. She denies any vision changes, palpitations, shortness of breath, fevers, chills. She reports nausea since this morning, denies any vomiting. Past History - Past Medical History Allergies/Adverse Reactions: Allergies Allergy/AdvReac Type Severity Reaction Status Date / Time cephalexin monohydrate Allergy Rash Verified 03/14/19 08:32 [From Keflex] Sulfa (Sulfonamide Allergy Verified 03/14/19 08:32 Antibiotics) clarithromycin [From Biaxin] AdvReac Verified 03/14/19 08:32 Home Medications: Ambulatory Orders Aspirin [ASA -] 81 mg PO DAILY tab.chew 03/27/15 Hydrochlorothiazide [Hctz -] 12.5 mg PO BID 06/02/17 Nebivolol HCl [Bystolic] 20 mg PO BID 06/02/17 Polyethylene Glycol 3350 [Miralax (For Daily Use) -] 17 gm PO DAILY #1 bottle Anemia: No Asthma: No Cancer: No Cardiac Disorders: Yes (ASHD, CAD, stents) CVA: No COPD: No CHF: No Dementia: No Diabetes: No GI Disorders: Yes (REFLUX, DIVERTICULOSIS, PEPTIC ULCER, HIATAL HERNIA, RECTAL POLYPS) Disorders: No HTN: Yes Hypercholesterolemia: Yes Liver Disease: Yes (NAFLD) Seizures: No Thyroid Disease: No - Surgical History Abdominal Surgery: (COLON RESECTION, 2012, PARTIAL CHOLECTOMY) Appendectomy: No Cardiac Surgery: Yes (cardiac stent, lt endarterectomy) Cholecystectomy: No Lung Surgery: No Neurologic Surgery: No Orthopedic Surgery: No - Family Medical History Family Disease History: CA: Mother (uterine) - Immunization History Immunization Up to Date: No (no open wounds) - Psycho Social/Smoking Cessation Hx Smoking Status: No Smoking History: Former smoker Have you smoked in the past 12 months: No Number of Cigarettes Smoked Daily: 20 If you are a former smoker, when did you quit?: 1981 Information on smoking cessation initiated: No Hx Alcohol Use: No Drug/Substance Use Hx: No Substance Use Type: None Hx Substance Use Treatment: No Review of Systems - Review of Systems Able to Perform ROS?: Yes Comments:: 03/22/19 22:17 ROS: GENERAL/CONSTITUTIONAL: No fever or chills. No weakness. HEAD, EYES, EARS, NOSE AND THROAT: No change in vision. No ear pain or discharge. No sore throat. CARDIOVASCULAR: Chest pain. No shortness of breath RESPIRATORY: No cough, wheezing, or hemoptysis. GASTROINTESTINAL: Nausea. No vomiting, diarrhea or constipation. GENITOURINARY: No dysuria, frequency, or change in urination. MUSCULOSKELETAL: No joint or muscle swelling or pain. No neck or back pain. SKIN: No rash NEUROLOGIC: No headache, vertigo, loss of consciousness, or change in strength/ sensation. ENDOCRINE: No increased thirst. No abnormal weight change HEMATOLOGIC/LYMPHATIC: No anemia, easy bleeding, or history of blood clots. ALLERGIC/IMMUNOLOGIC: No hives or skin allergy. *Physical Exam - Vital Signs Last Vital Signs Temp Pulse Resp BP Pulse Ox 98.2 F 58 L 14 216/70 H 98 03/14/19 06:14 03/14/19 06:14 03/14/19 06:14 03/14/19 06:14 03/14/19 06:14 - Physical Exam Comments: 03/22/19 22:18 PE: GENERAL: Awake, alert, and fully oriented, in no acute distress HEAD: No signs of trauma, normocephalic, atraumatic EYES: PERRLA, EOMI, sclera anicteric, conjunctiva clear ENT: Auricles normal inspection, hearing grossly normal, nares patent, oropharynx clear without exudates. Moist mucosa NECK: Normal ROM, supple, no lymphadenopathy, JVD, or masses LUNGS: No distress, speaks full sentences, clear to auscultation bilaterally HEART: Regular rate and rhythm, normal S1 and S2, no murmurs, rubs or gallops, peripheral pulses normal and equal bilaterally. ABDOMEN: Soft, nontender, normoactive bowel sounds. No guarding, no rebound. No masses EXTREMITIES : Normal inspection, Normal range of motion, no edema. No clubbing or cyanosis NEUROLOGICAL: Normal speech, normal gait, no focal sensorimotor deficits SKIN: Warm, Dry, normal turgor, no rashes or lesions noted ED Treatment Course - LABORATORY CBC & Chemistry Diagram: 03/17/19 05:15 03/18/19 12:45 Medical Decision Making - Medical Decision Making 03/14/19 10:18 89F p/w acute onset 04/01 abdominal pain, chest pain that radiates to her back. Differential includes dissection given location/severity of pain with radiation to back, as well as ACS. Plan: CBC CMP Cardiac Profile EKG CXR CTA abdomen/pelvis Dispo: Admit --- CBC, CMP - wnl Troponin negative CXR - negative for acute process --- During initiation of CT, IV line blew during contrast injection. Previously flushing well, labs drawn through line without difficulty. Plan for placement of new IV line, then CTA. --- Second IV line also blew during contrast injection. *DC/Admit/Observation/Transfer - Discharge Dispostion Disposition: TRANSFER ACUTE CARE/OTHER HOSP Condition at time of disposition: Guarded - Referrals - Patient Instructions - Post Discharge Activity Discharge - Discharge Information Condition: Guarded Disposition: TRANSFER ACUTE CARE/OTHER HOSP
[2019-03-14 08:34] LABS: EPI CELLS 5.1 /HPF (0-5/HPF); HYALINE CASTS 4 /lpf (0-8); PH,URINE 6.5 (5.0-8.0); URINE APPEARANCE CLEAR; URINE BACTERIA 17.1 /hpf (NEGATIVE); URINE BILIRUBIN NEGATIVE (NEGATIVE); URINE COLOR YELLOW; URINE GLUCOSE (UA) NEGATIVE (NEGATIVE); URINE KETONE NEGATIVE (NEGATIVE); URINE LEUK ESTERASE NEGATIVE (NEGATIVE); URINE NITRITE NEGATIVE (NEGATIVE); URINE PROTEIN 2+ (NEGATIVE); URINE RBC 1 /hpf (0-4); URINE UROBILINOGEN 0.2 mg/dL (0.2-1.0); URINE WBC 1 /hpf (0-5)
[2019-03-14] MEDS ORDERED: HYDROCHLOROTHIAZIDE 12.5 MG CAPSULE (FP) PO ONE (08:55)
[2019-03-14] MEDS ORDERED: NEBIVOLOL 10 MG TABLET (FP) PO ONE (08:56)
[2019-03-14] MEDS ORDERED: ACETAMINOPHEN 500 MG TABLET (FP) PO ONE (08:57)
[2019-03-14] MEDS ORDERED: ACETAMINOPHEN 325 MG TABLET (FP) ONE (09:23)
[2019-03-14] MEDS ORDERED: HYDROCHLOROTHIAZIDE 25 MG TABLET (FP) ONE ×2 (09:23→17:58)
[2019-03-14 09:32] LABS: ALBUMIN 3.2 g/dl (3.4-5.0); ALK PHOS 75 U/L (45-117); ANION GAP 8 MMOL/L (8-16); BILIRUBIN,TOTAL 0.7 mg/dL (0.2-1); BLOOD UREA NITROGEN 15.3 mg/dL (7-18); CALCIUM 8.9 mg/dL (8.5-10.1); CHLORIDE 106 mmol/L (98-107); CO2 24 mmol/L (21-32); CREATININE 0.9 mg/dL (0.55-1.3); GLUCOSE,RANDOM 105 mg/dL (74-106); LIPASE 76 U/L (73-393); POTASSIUM 4.6 mmol/L (3.5-5.1); SGOT/AST 37 U/L (15-37); SGPT/ALT 23 U/L (13-61); SODIUM 138 mmol/L (136-145); TOT PROT 6.8 g/dl (6.4-8.2)
[2019-03-14 09:37] LABS: INR 1.01 (0.83-1.09); PROTHROMBIN TIME (PATIENT) 11.9 SEC (9.7-13.0)
[2019-03-14 09:40] LABS: ACTIVATED PTT 32.3 SECONDS (25.2-36.5)
[2019-03-14] MEDS ORDERED: morphine CARPU-JECT 2 MG/1 ML DISP.SYRIN IVPUSH ONE (09:54)
[2019-03-14] MEDS ORDERED: HYDROmorphone HCL CARPU-JECT 2 MG/1 ML DISP.SYRIN IVPUSH ONE ×2 (09:59→10:20)
--- NOTE | 2019-03-14 10:00 | PDOC ---
Attending Attestation - Resident Resident Name: Garrick Miguel - ED Attending Attestation I have performed the following: I have examined & evaluated the patient, The case was reviewed & discussed with the resident, I agree w/resident's findings & plan, Exceptions are as noted - HPI HPI: 03/14/19 09:53 89 F with h/o CAD s/p stents x2, diverticulitis s/p hemicolectomy (2011), CKD, presenting to ED with chest pain. Pt states it began this morning. The pain radiates from her chest to her abdomen, as well as her back. Pt endorses nausea without vomiting. Pt denies diarrhea/constipation. Denies SOB. Denies F/C. - Physicial Exam PE: 03/14/19 10:00 "GENERAL: Awake, alert, and fully oriented, in no acute distress. HEAD: No signs of trauma EYES: PERRLA, EOMI, sclera anicteric, conjunctiva clear ENT: Auricles normal inspection, hearing grossly normal, nares patent, oropharynx clear without exudates. Moist mucosa NECK: Nontender, no stepoffs, Normal ROM, supple, no lymphadenopathy, JVD, or masses LUNGS: Breath sounds equal, clear to auscultation bilaterally. No wheezes, and no crackles HEART: Regular rate and rhythm, normal S1 and S2, no murmurs, rubs or gallops ABDOMEN: Soft, nontender, normoactive bowel sounds. No guarding, no rebound. No masses EXTREMITIES: Normal range of motion, no edema. No clubbing or cyanosis. No cords, erythema, or tenderness NEUROLOGICAL: Cranial nerves II through XII intact. 5/5 strength and sensation in all extremities, Normal speech, normal gait, normal cerebellar function SKIN: Warm, Dry, normal turgor, no rashes or lesions noted. - Medical Decision Making 03/14/19 10:00 89 F with chest, abdomen, back pain. BP elevated. Will need to r/o dissection. - Labs, trop - CTA chest/abd/pelvis - Pain control - BP control 03/14/19 14:51 Labs wnl Initial CTA done without contrast due to IV infiltration. Non-con shows no aneurysmal dilatation of aorta. Unable to assess for dissection based on this study. Another peripheral IV placed under ultrasound guidance. Pt sent back for CTA with subsequent infiltration of this IV as well. Will order US to further evaluate aorta. Pt admitted to Dr. Barbosa
[2019-03-14] MEDS ORDERED: HYDROmorphone HCl 2 MG/ML VIAL ONE ×2 (10:17→11:24)
[2019-03-14] MEDS ORDERED: HYDROmorphone HCL CARPU-JECT 2 MG/1 ML DISP.SYRIN IVPB ONE (10:40)
[2019-03-14 11:58] LABS: BASO % 0.7 % (0-2.0); EOS % 0.1 % (0-4.5); HEMOGLOBIN 11.4 GM/dL (10.7-15.3); LYMPH % 6.6 % (8-40); MCH 31.3 pg (25.7-33.7); MCHC 32.5 g/dl (32.0-36.0); MEAN CELL VOLUME 96.2 fl (80-96); MEAN PLT VOLUME 9.5 fl (7.5-11.1); MONO % 7.2 % (3.8-10.2); NEUT % 85.4 % (42.8-82.8); PLATELET COUNT 226 K/MM3 (134-434); RBC 3.64 M/mm3 (3.60-5.2); RDW 15.1 % (11.6-15.6); WHITE BLOOD COUNT 10.4 K/mm3 (4.0-10.0)
[2019-03-14] MEDS ORDERED: PANTOPRAZOLE SODIUM 40 MG VIAL IVPUSH ONE (13:56)
[2019-03-14] MEDS ORDERED: PANTOPRAZOLE SODIUM 40 MG/100 ML BAG IVPB ONE (14:49)
[2019-03-14] MEDS ORDERED: PANTOPRAZOLE SODIUM 40 MG VIAL ONE (14:49)
[2019-03-14] MEDS ORDERED: ACETAMINOPHEN 325 MG TABLET (FP) PO PRN (15:23)
[2019-03-14] MEDS: HYDROCHLOROTHIAZIDE 25 MG TABLET (FP) PO SCH (18:07)
[2019-03-14] MEDS ORDERED: HEPARIN NA (PORCINE) 5,000 UNITS/ML 1ML VIAL ONE (22:16)
[2019-03-14] MEDS: HEPARIN NA (PORCINE) 5,000 UNITS/ML 1ML VIAL SQ SCH (22:17)
[2019-03-14 22:37] LABS: INR 1.11 (0.83-1.09); PROTHROMBIN TIME (PATIENT) 13.1 SEC (9.7-13.0)
[2019-03-15] MEDS ORDERED: ACETAMINOPHEN 325 MG TABLET (FP) ONE (02:09)
--- NOTE | 2019-03-15 07:07 | EKG ---
Test Reason : Blood Pressure : / mmHG Vent. Rate : 061 BPM Atrial Rate : 061 BPM P-R Int : 156 ms QRS Dur : 074 ms QT Int : 416 ms P-R-T Axes : 083 013 059 degrees QTc Int : 418 ms NORMAL SINUS RHYTHM NONSPECIFIC T WAVE ABNORMALITY ABNORMAL ECG WHEN COMPARED WITH ECG OF 02-JUN-2017 20:24, NONSPECIFIC T WAVE ABNORMALITY, WORSE IN LATERAL LEADS Confirmed by CAROL PINA, MOSES ([id number]) on 03/15/2019 7:07:43 AM Referred By: Confirmed By:MOSES MEDINA MD
[2019-03-15 07:10] LABS: HEMATOCRIT 36.5 % (32.4-45.2); HEMOGLOBIN 11.7 GM/dL (10.7-15.3); MCH 30.8 pg (25.7-33.7); MCHC 32.1 g/dl (32.0-36.0); MEAN CELL VOLUME 95.8 fl (80-96); PLATELET COUNT 210 K/MM3 (134-434); RBC 3.81 M/mm3 (3.60-5.2); WHITE BLOOD COUNT 11.2 K/mm3 (4.0-10.0)
[2019-03-15 07:30] LABS: ALBUMIN 3.4 g/dl (3.4-5.0); BILIRUBIN,TOTAL 0.8 mg/dL (0.2-1); BLOOD UREA NITROGEN 15.9 mg/dL (7-18); CALCIUM 9.1 mg/dL (8.5-10.1); CREATININE 1.1 mg/dL (0.55-1.3); TOT PROT 7.1 g/dl (6.4-8.2)
[2019-03-15] MEDS ORDERED: HYDROCHLOROTHIAZIDE 25 MG TABLET (FP) ONE (11:26)
[2019-03-15] MEDS ORDERED: HEPARIN NA (PORCINE) 5,000 UNITS/ML 1ML VIAL ONE ×2 (11:26→13:35)
[2019-03-15] MEDS: HYDROCHLOROTHIAZIDE 25 MG TABLET (FP) PO SCH (11:31)
--- NOTE | 2019-03-15 11:58 | HP ---
Admitting History and Physical - Admission Chief Complaint: abdominal pain History of Present Illness: 89 F with h/o CAD s/p stents x2, diverticulitis s/p hemicolectomy (2011), CKD, pancreatic cancer and HTN , h/o hemicolectomy, carotid endartectomy and hysterectomy presenting to ED with abdominal pain which woke her up from her sleep on friday. per patient pain sharp stabbing pain in middle of abdomen radiating to her back and right side and going up her chest .she took tylenol no relief, she came to ER no nausea no vomiting no palpitations no fever. History Source: Patient, Medical Record - Past Medical History Cardiovascular: Yes: CAD, HTN, Hyperlipdemia, Other Gastrointestinal: Yes: Constipation, Diverticulosis, Peptic Ulcer Disease, Other Renal/: Yes: Renal Inusuff - Past Surgical History Past Surgical History: Yes: Carotid Endarterectomy, Colectomy, Stent - Smoking History Smoking history: Former smoker Have you smoked in the past 12 months: No Aproximately how many cigarettes per day: 20 If you are a former smoker, when did you quit?: 1981 - Alcohol/Substance Use Hx Alcohol Use: No History of Substance Use: reports: None - Social History ADL: Independent History of Recent Travel: No Home Medications - Allergies Allergies/Adverse Reactions: Allergies Allergy/AdvReac Type Severity Reaction Status Date / Time cephalexin monohydrate Allergy Rash Verified 03/14/19 08:32 [From Keflex] Sulfa (Sulfonamide Allergy Verified 03/14/19 08:32 Antibiotics) clarithromycin [From Biaxin] AdvReac Verified 03/14/19 08:32 - Home Medications Home Medications: Ambulatory Orders Aspirin [ASA -] 81 mg PO DAILY tab.chew 03/27/15 Hydrochlorothiazide [Hctz -] 12.5 mg PO BID 06/02/17 Nebivolol HCl [Bystolic] 20 mg PO BID 06/02/17 Polyethylene Glycol 3350 [Miralax (For Daily Use) -] 17 gm PO DAILY #1 bottle Physical Examination Vital Signs: Vital Signs Temperature 98.4 F 03/14/19 19:35 Pulse Rate 71 03/15/19 11:06 Respiratory Rate 17 03/15/19 11:06 Blood Pressure 223/84 H 03/15/19 11:06 O2 Sat by Pulse Oximetry (%) 97 03/15/19 11:06 Labs: CBC, BMP 03/15/19 06:00 03/15/19 06:00 Problem List - Problems (1) Abdominal pain Assessment/Plan: gi consult abdomen MRA to look for ischemia possible mesentric ischemia- aortic ultrasound ordered as well iv morphine pain control PPI vascular consult Code(s): R10.9 - UNSPECIFIED ABDOMINAL PAIN (2) Benign essential hypertension Assessment/Plan: bystolic hydralazine if needed cardiology pain control recheck BP Code(s): I10 - ESSENTIAL (PRIMARY) HYPERTENSION (3) CKD (chronic kidney disease) stage 3, GFR 30-59 ml/min Assessment/Plan: monitor renal functon Code(s): N18.3 - CHRONIC KIDNEY DISEASE, STAGE 3 (MODERATE)
[2019-03-15] MEDS: NEBIVOLOL 10 MG TABLET (FP) PO SCH (12:39)
[2019-03-15] MEDS ORDERED: MORPHINE SULFATE 2 MG/ML VIAL IVPUSH PRN (12:40)
[2019-03-15] MEDS ORDERED: PANTOPRAZOLE SODIUM 40 MG/100 ML BAG IVPB ONE (13:45)
--- NOTE | 2019-03-15 14:13 | PN ---
Teaching Attending Note Name of Resident: Lou Kunz ATTENDING PHYSICIAN STATEMENT I saw and evaluated the patient. I reviewed the resident's note and discussed the case with the resident. I agree with the resident's findings and plan as documented. SUBJECTIVE: Pt seen and examined with the resident. Briefly, 89yo female with h/o HTN, CAD, diverticulitis s/p hemicolectomy, CKD, pancreatic ca declining treatment who presents with epigastric pain. Denies shortness of breath or chest pain. No cough or wheezing. No fevers or chills. No nausea or vomiting. She is a remote smoker, denies history of asthma or COPD. Does not take any inhalers at home. OBJECTIVE: Vital Signs Period Temp Pulse Resp BP Sys/Wright Pulse Ox Last 24 Hr 98.4 F 63-71 15-17 211-235/61-84 95-97 Gen: NAD at rest Heart: RRR Lung: decreased breath sounds at the bases Abd: soft, TTP epigastric region, no rebound Ext: no edema CBC, BMP 03/15/19 06:00 03/15/19 06:00 Active Medications Acetaminophen (Tylenol -) 650 mg PO Q6H PRN PRN Reason: PAIN LEVEL 1-5 OR FEVER Last Admin: 03/15/19 02:13 Dose: 650 mg Heparin Sodium (Porcine) (Heparin -) 5,000 unit SQ TID [facility] Hydrochlorothiazide (Hctz -) 25 mg PO DAILY [facility] Last Admin: 03/15/19 11:31 Dose: 25 mg Morphine Sulfate (Morphine Sulfate) 2 mg IVPUSH Q6H PRN PRN Reason: PAIN LEVEL 7 - 10 Nebivolol (Bystolic -) 10 mg PO DAILY [facility] Last Admin: 03/15/19 12:39 Dose: 10 mg Pantoprazole Sodium (Protonix Iv) 40 mg IVPUSH BID [facility] ASSESSMENT AND PLAN: Abdominal Pain Pancreatic Ca CAD h/o Diverticulitis CKD HTN - pain control - BP control once pain under control - GI eval - CT chest reviewed, appears to have mild apical emphysematous changes but no acute findings - inhaled bronchodilators as needed - DVT prophylaxis Thank you for this consult Mario Fine MD
[2019-03-15] MEDS: HEPARIN NA (PORCINE) 5,000 UNITS/ML 1ML VIAL SQ SCH ×4 (14:25→21:57)
--- NOTE | 2019-03-15 14:28 | CONSULT ---
Consult Consult Specialty:: Pulmonology Referred by:: Dr Barbosa Reason for Consultation:: Shortness of breath/chest pain - History of Present Illness Chief Complaint: Abdominal pain x 1 day History of Present Illness: Pt is an 89 yo F with PMHx of CAD s/p stents, diverticulitiis s/p hemicolectomy , CKD, pancreatic mass presenting from home with one day hx of abdominal pain radiating to back and chest, reported to be initially short of breath at presentation. Pt denies chest pain, cough, difficulty breathing. She reports severe abdominal pain, no dysuria, hematuria or hematochezia. No nausea or vomiting. Pt however reports loss of weight consistent with pancreatic cancer diagnosis for about 2 years. Pt reports hx of smoking quit in 1982, and reports no asthma or COPD symptoms. At the time I saw the patient she had no respiratory symptoms and requested pain medications for the abdominal pain. WBC-11.2, Na 134, CT chest: mild atelectasis lower lobes, no infiltrates or pleural effusion Liver lesion3.4, cystic, GB distension and possible thickness [id number] nl size, LVSF- nl, no regional wall abnormalities noted, mild mitral annular calcification,. Focal thickening of anterior leaflet. Mod MR , mod TR, mod aortic sclerosis. Mild to mod AR. RVSP-40mmHg MRI/MRA 05/2017- Atrophic pancreas with heterogenous 5.0 x3.3 distal tail - History Source History Provided By: Patient Limitations to Obtaining History: No Limitations - Past Medical History Cardio/Vascular: Yes: CAD, HTN, Hyperlipdemia, Other Gastrointestinal: Yes: Constipation, Diverticulosis, Peptic Ulcer Disease, Other Renal/: Yes: Renal Inusuff Heme/Onc: Yes: Other (Pancreatic mass) - Past Surgical History Past Surgical History: Yes: Carotid Endarterectomy, Colectomy, Stent - Alcohol/Substance Use Hx Alcohol Use: No History of Substance Use: reports: None - Smoking History Smoking history: Former smoker Have you smoked in the past 12 months: No Aproximately how many cigarettes per day: 20 If you are a former smoker, when did you quit?: 1981 - Social History ADL: Independent History of Recent Travel: No Home Medications - Allergies Allergies/Adverse Reactions: Allergies Allergy/AdvReac Type Severity Reaction Status Date / Time cephalexin monohydrate Allergy Rash Verified 03/14/19 08:32 [From Keflex] Sulfa (Sulfonamide Allergy Verified 03/14/19 08:32 Antibiotics) clarithromycin [From Biaxin] AdvReac Verified 03/14/19 08:32 - Home Medications Home Medications: Ambulatory Orders Aspirin [ASA -] 81 mg PO DAILY tab.chew 03/27/15 Hydrochlorothiazide [Hctz -] 12.5 mg PO BID 06/02/17 Nebivolol HCl [Bystolic] 20 mg PO BID 06/02/17 Polyethylene Glycol 3350 [Miralax (For Daily Use) -] 17 gm PO DAILY #1 bottle Review of Systems - Review of Systems Constitutional: reports: Loss of Appetite. denies: Chills, Diaphoresis, Fever, Night Sweats Eyes: denies: Blurred Vision HENT: denies: Difficult Swallowing Neck: denies: Decreased ROM Cardiovascular: denies: Chest Pain, Edema, Palpitations, Shortness of Breath Respiratory: denies: Cough, Hemoptysis, SOB Gastrointestinal: reports: Abdominal Pain. denies: Diarrhea, Rectal Bleeding, Vomiting Genitourinary: denies: Burning, Dysuria, Flank Pain Physical Exam Vital Signs: Vital Signs Temperature 98.4 F 03/14/19 19:35 Pulse Rate 71 03/15/19 11:06 Respiratory Rate 17 03/15/19 11:06 Blood Pressure 223/84 H 03/15/19 11:06 O2 Sat by Pulse Oximetry (%) 97 03/15/19 11:06 Constitutional: Yes: No Distress, Calm, Thin Eyes: Yes: Conjunctiva Clear, EOM Intact, PERRL Neck: Yes: Supple Cardiovascular: Yes: Murmur (2/6 systolic murmur LSB), S1, S2 Respiratory: Yes: CTA Bilaterally. No: Rales, Rhonchi, SOB Gastrointestinal: Yes: Normal Bowel Sounds, Soft Edema: No Peripheral Pulses WNL: Yes Neurological: Yes: Alert, Oriented. No: Confusion, Facial Droop, Pre-Existing Deficit Psychiatric: Yes: Alert, Oriented Labs: CBC, BMP 03/15/19 06:00 03/15/19 06:00 Imaging - Results Cat Scan: Report Reviewed ( No acute lung disease is present. Normal size thoracic and abdominal aorta without aneurysmal dilatation. Diffuse calcified atheromatous plaques are present. [id number] cardiomegaly with dense calcification of the coronary arteries. Left hepatic lobe cyst measuring 3.4 cm. Bilateral renal cysts, as described above. Small fat-containing umbilical hernia.) Assessment/Plan Assessment/Plan: Pt is an 89 yo F with PMHx of CAD s/p stents, diverticulitiis s/p hemicolectomy , CKD, pancreatic mass presenting from home with one day hx of abdominal pain radiating to back and chest, reported to be initially short of breath at presentation. CAD s/p stents, diverticulitis s/p hemicolectomy, CKD, pancreatic mass PH abdominal pain shortness of breath HTN Plan: SOB possibly in setting of pain with elevated BP Ventolin Nebs PRN No acute pulmonary infiltrates on imaging Pt on tylenol, continue pain mx per primary team Follow up for pancreatic mass BP control D/W Dr Babatunde Kunz PGY 3 Visit type - Emergency Visit Emergency Visit: Yes ED Registration Date: 03/14/19 Care time: The patient presented to the Emergency Department on the above date and was hospitalized for further evaluation of their emergent condition. - New Patient This patient is new to me today: Yes Date on this admission: 03/15/19 - Critical Care Critical Care patient: No ATTENDING PHYSICIAN STATEMENT I saw and evaluated the patient. I reviewed the resident's note and discussed the case with the resident. I agree with the resident's findings and plan as documented. SUBJECTIVE: OBJECTIVE: ASSESSMENT AND PLAN:
[2019-03-15] MEDS ORDERED: ALBUTEROL SO4 0.083% IH SOL 2.5 MG/3 ML VIAL.NEB. NEB PRN (14:54)
[2019-03-15] MEDS: PANTOPRAZOLE SODIUM 40 MG VIAL IVPUSH SCH ×2 (15:04→21:57)
[2019-03-15] MEDS ORDERED: hydrALAZINE HCL 25 MG TABLET (FP) PO ONE ×2 (17:00→19:00)
--- NOTE | 2019-03-15 21:00 | CONS ---
CARDIOLOGY CONSULTATION DATE OF CONSULTATION: 03/15/2019 REQUESTING PHYSICIAN: Emergency room physician. CHIEF COMPLAINTS: 1. Abdominal pain. 2. Nausea and retching. 3. Loss of appetite. 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 Patient has longstanding history of coronary artery disease, status post PCI, stenting; hypercholesterolemia; hypertension; hypertensive cardiovascular disease, status post left carotid endarterectomy; aortic valvular disease; aortic regurgitation; history of nonobstructive mesenteric artery stenosis. She also has been diagnosed to have neuroendocrine carcinoma of the pancreas. Patient states that for the last several days she has had intermittent nausea, retching, has loss of appetite, and has significant weight loss. She is currently under the care of Dr. Hans Wang for her pancreatic tumor and also is being followed at [facility]. She denies having exertional chest, back, jaw pain or discomfort. There is no history of exertional dyspnea, paroxysmal nocturnal dyspnea, or orthopnea. There is no history of diabetes mellitus. PAST HISTORY: 1. As mentioned in the history of present illness. 2. History of carotid artery disease. 3. History of extensive calcification of the mesenteric arterial system. 4. History of coronary calcifications. SURGICAL HISTORY: 1. Status post left carotid endarterectomy. 2. Status post hysterectomy. 3. Status post hemicolectomy for diverticulitis. 4. History of biopsy of pancreatic tumor. 5. Status post PCI/stenting. SOCIAL HISTORY: She is a , has no children, is an ex-nurse. Smoked from teenage years and stopped in 1982; used to smoke about half a pack of cigarettes per day. No history of alcohol use. Has 2 cups of coffee. FAMILY HISTORY: Father in his 50s of pneumonia. Mother at age 79 due to complications of uterine carcinoma. Had 2 brothers. One of them in his late 60s of a brain tumor. The other at age 84 of chronic obstructive pulmonary disease. She had 6 sisters. All of them all except one who is 97 years of age. ALLERGIES: 1. KEFLEX. 2. SULFA. 3. SULFASALAZINE causes nausea and was taking it for rheumatoid arthritis. MEDICATIONS: 1. Bystolic 20 mg p.o. daily. 2. Hydralazine 50 mg p.o. b.i.d., previously had been on 50 mg t.i.d. 3. Hydrochlorothiazide 12.5 mg p.o. daily. 4. Aspirin 81 mg p.o. daily. 5. Lipitor was stopped for unknown reasons. 6. Prednisone 5 mg p.o. daily. REVIEW OF SYSTEMS: Constitutional: No history of chills, fever, or night sweats. History of significant unintentional weight loss. HEENT: No history of headaches, diplopia, blurred vision reported. No history of epistaxis or hoarseness. No history of tinnitus or deafness. Cardiovascular: See history of present illness. Respiratory: No history of cough, expectoration, or hemoptysis. No history of tuberculosis. Gastrointestinal: See history of present illness. No history of melena, hematemesis. No history of change in bowel habits reported. Neurological: History of intermittent paresthesias involving the toes. No history of focal weakness. No history of seizures or syncope. No history of lightheadedness or dizziness. Genitourinary: No history of dysuria, frequency, or hematuria. Musculoskeletal: History of rheumatoid arthritis and previous history of polymyalgia rheumatica. Endocrine: See history of present illness. No history of polyuria or polydipsia. No history of intolerance to cold or warm weather. Hematological: No history of bleeding, ecchymosis, or anemia. PHYSICAL EXAMINATION: General: An 89-year-old cachectic female who was complaining of mild abdominal pain. No pallor, cyanosis, clubbing, or jaundice noted. Vital Signs: Weight 44.86 kg. Blood pressure on admission 235/69 mmHg, currently 160/81 mmHg. Pulse 78 beats per minute and regular. Temperature 99.8 degrees Fahrenheit. Respirations were 18 per minute. Oxygen saturation was 98% on room air. Neck: Supple. No jugular venous distention. Carotids were 2+. Upstrokes were normal. No bruits were heard. No thyromegaly was present. There was a well-healed left carotid endarterectomy scar. Heart: PMI was in the fifth intercostal space. No heaves or thrills. S1 and S2 were normal. Ejection systolic murmur, grade 1/6, was heard at the second right intercostal space, ending at early systole. There was a grade 1/6 apical systolic murmur that was poorly radiating. No diastolic murmur, gallops, or rubs were heard. Lungs: Clear on auscultation. Abdomen: Slightly firm. There was slight paraumbilical tenderness. There was no rebound tenderness. No hepatosplenomegaly was appreciated. No palpable masses. The abdominal aorta was pulsatile, and there was a prominent bruit. Bowel sounds were hypoactive. Extremities: No calf tenderness or dependent edema. Dorsalis pedis pulses were 1+ to 2+. Posterior tibial pulses could not be palpated. LABORATORY DATA: CBC: WBC count 11,200. Hemoglobin 11.7 g/dL. Differential: Neutrophils 85.4%, lymphocytes 6.6%, monocytes 7.2%, eosinophils 0.1%, basophils 0.7%. Chemistry: Sodium 134, potassium 4.0, chloride 98, CO2 of 26 mmol/L. BUN 15.9 mg/dL, creatinine 1.1 mg/dL. Hemoglobin A1c was 4.7. Serum calcium 9.1 mg/dL. Total bilirubin 0.8, AST 20, ALT 17 units/liter, alkaline phosphatase 81 units/liter. CK 71. Troponin was less than 0.02. Total cholesterol 248, LDL cholesterol 143, HDL cholesterol 72. Lipase was 76. ECG dated March 14, 2019, reported as follows: Normal sinus rhythm, nonspecific T-wave abnormalities. Abnormal ECG when compared to ECG of June 02, 2017: Nonspecific T-wave abnormalities most in lateral leads. Abdominal CT post examination could not be obtained due to infiltration of contrast in the left arm. No acute lung disease is present. Normal-size thoracic and abdominal aorta without aneurysmal dilatation. Diffuse calcified atheromatous plaques are present. [id number] cardiomegaly with dense calcification of the coronary arteries. Left hepatic lobe cyst measuring 3.4 cm. Bilateral renal cysts as described above. Small, fat-containing umbilical hernia. IMPRESSION: 1. Abdominal pain radiating to the chest, etiology: A. 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 B. Intermittent incarceration of the umbilical hernia. C. Abdominal angina. 2. Coronary artery disease, status post percutaneous coronary intervention/stenting, angina pectoris, currently stable. 3. Accelerated hypertension. Consider progression of the left renal artery stenosis. 4. Cachexia, weight loss, and nausea, most likely related to the previously-mentioned tumor; possibility of metastatic disease needs exclusion. 5. Aortic valvular disease with aortic regurgitation. 6. Hypercholesterolemia. 7. History of rheumatoid arthritis. 8. History of polymyalgia rheumatica. RECOMMENDATIONS: 1. Follow up ECG and cardiac enzymes. 2. Patient should be considered for MRA of the renal arteries in view of accelerated hypertension. 3. Dose of hydralazine could be increased initially to 50 mg p.o. t.i.d. and further if necessary. 4. Consider adding amlodipine if the blood pressure remains elevated. 5. GI consultation. 6. Consider sublingual nitroglycerin if abdominal pain was to recur. PROGNOSIS: Critical. Thank you for your referral. Yours sincerely, BIANCA MORALES M.D. [id number]
[2019-03-15] MEDS: HYDROmorphone HCl 2 MG/ML VIAL IVPB PRN (21:57)
--- NOTE | 2019-03-15 22:38 | CONSULT ---
- Consultation REQUESTING PROVIDER: CONSULT REQUEST: We have been asked to surgically evaluate this patient for mesenteric ischemia. PCP:Ambrose Barbsoa HISTORY OF PRESENT ILLNESS: The patient is a 89 yo female who presented to the ER with complaints of nausea, no emesis and upper abd pain radiating into her back. She has had similar pain like this in the past but it was always relieved with tylenol. She came to the ER and had 10/10 pain, she is currently at a 6/ 10. Over the past several years she has lost 50 pounds because of a lack in appetite and a known pancreatic tumor. On most days, she does have some nausea and abdominal pain. She has no increase in her abd pain after eating. He last bowel movement was several days ago after taking stool softners. No blood noted with her bowel movements. On her most recent MRI of her abdomen(4 weeks ago), she was told that her pancreatic tumor had increased in size. She was told that she had a neuroendocrine tumor and had opted for no surgical intervention after discussion with her doctor. A ct scan with IV contrast was attempted upon admission but her IV infiltrated, MRA ordered by the medical team. PMHx: pancreatic cancer, CAD, diverticulitits PSHx: hysterectomy, hemicolectomy for diverticular disease , carotid endarterectomy Home Medications Medication Instructions Recorded Aspirin [ASA -] 81 mg PO DAILY tab.chew 03/27/15 Hydrochlorothiazide [Hctz -] 12.5 mg PO BID 06/02/17 Nebivolol HCl [Bystolic] 20 mg PO BID 06/02/17 Polyethylene Glycol 3350 [Miralax 17 gm PO DAILY #1 bottle 06/06/17 (For Daily Use) -] Allergies Allergy/AdvReac Type Severity Reaction Status Date / Time cephalexin monohydrate Allergy Rash Verified 03/14/19 08:32 [From Keflex] Sulfa (Sulfonamide Allergy Verified 03/14/19 08:32 Antibiotics) clarithromycin [From Biaxin] AdvReac Verified 03/14/19 08:32 REVIEW OF SYSTEMS: CONSTITUTIONAL: Absent: diaphoresis, generalized weakness, malaise, loss of appetite, weight change CARDIOVASCULAR: present: chest pain GASTROINTESTINAL: Present: abdominal pain, nausea PHYSICAL EXAM: GENERAL: Awake, alert, and fully oriented, in no acute distress. ABDOMEN: Soft, mild upper abd tender/fullness, not distended, no guarding. No rebound. Reducible supra-umbilical hernia. LOWER EXTREMITIES: 2+ pulses, warm, well-perfused. No calf tenderness. No peripheral edema. NEUROLOGICAL: Normal speech, gait not observed. PSYCH: Cooperative. Good eye contact. Appropriate mood and affect. SKIN: Warm, dry, normal turgor.. Vital Signs Temperature 98.9 F 03/15/19 20:45 Pulse Rate 73 03/15/19 20:45 Respiratory Rate 18 03/15/19 20:45 Blood Pressure 204/88 H 03/15/19 20:45 O2 Sat by Pulse Oximetry (%) 98 03/15/19 16:30 Lab Results WBC 11.2 K/mm3 (4.0-10.0) H 03/15/19 06:00 RBC 3.81 M/mm3 (3.60-5.2) 03/15/19 06:00 Hgb 11.7 GM/dL (10.7-15.3) 03/15/19 06:00 Hct 36.5 % (32.4-45.2) 03/15/19 06:00 MCV 95.8 fl (80-96) 03/15/19 06:00 MCHC 32.1 g/dl (32.0-36.0) 03/15/19 06:00 RDW 15.0 % (11.6-15.6) 03/15/19 06:00 Plt Count 210 K/MM3 (134-434) 03/15/19 06:00 Sodium 134 mmol/L (136-145) L 03/15/19 06:00 Potassium 4.0 mmol/L (3.5-5.1) 03/15/19 06:00 Chloride 98 mmol/L (98-107) 03/15/19 06:00 Carbon Dioxide 26 mmol/L (21-32) 03/15/19 06:00 Anion Gap 10 MMOL/L (8-16) 03/15/19 06:00 BUN 15.9 mg/dL (7-18) 03/15/19 06:00 Creatinine 1.1 mg/dL (0.55-1.3) 03/15/19 06:00 Random Glucose 79 mg/dL (74-106) 03/15/19 06:00 Calcium 9.1 mg/dL (8.5-10.1) 03/15/19 06:00 INR 1.11 (0.83-1.09) H 03/14/19 21:33 US; No evidence of AAA CT scan(without contrast) of abd/chest: no evidence of bowel obstruction, small umbilical hernia. No abdominal/thoracic aneurysmal dilatation. Distended stomach. pancreas unremarkable Problem List - Problems (1) Abdominal pain Assessment/Plan: Spoke with Dr. Burns regarding the patients care. It appears that her symptoms are due to her pancreatic cancer and less likely from mesenteric ischemia. She is not having postpranial symptoms, her abd exam is benign. A CT scan with IV contrast was attempted but her IV infiltrated. The medical team has now ordered a MRA instead, possibly because she has poor access(right FA 22 gauge IV). Today, her BUN/CRET are elevated which make it difficult to obtain either study and the MRA is being fixed today(spoke with the tech). Recommend IV hydration since NPO and monitor BUN/CRET, repeat study when labs improved if clinically necessary. May also monitor lactic acid level if concern is high for mesenteric ischemia. Case D/w the medical team. Code(s): R10.9 - UNSPECIFIED ABDOMINAL PAIN
[2019-03-16] MEDS: HEPARIN NA (PORCINE) 5,000 UNITS/ML 1ML VIAL SQ SCH ×3 (06:25→22:01)
[2019-03-16 07:30] LABS: ALBUMIN 3.4 g/dl (3.4-5.0); BILIRUBIN,TOTAL 0.9 mg/dL (0.2-1); BLOOD UREA NITROGEN 23.8 mg/dL (7-18); CALCIUM 9.5 mg/dL (8.5-10.1); CREATININE 1.5 mg/dL (0.55-1.3); POTASSIUM 3.5 mmol/L (3.5-5.1); TOT PROT 7.4 g/dl (6.4-8.2)
--- NOTE | 2019-03-16 07:57 | PN ---
Progress Note (short form) - Note Progress Note: Patient seen by Dr Wang on 05/2017. Will transfer case to Dr Magdaleno.
--- NOTE | 2019-03-16 09:22 | PN ---
Progress Note, Physician - Current Medication List Current Medications: Active Medications Acetaminophen (Tylenol -) 650 mg PO Q6H PRN PRN Reason: PAIN LEVEL 1-5 OR FEVER Last Admin: 03/15/19 02:13 Dose: 650 mg Albuterol Sulfate (Ventolin 0.083% Nebulizer Soln -) 1 amp NEB Q6H PRN PRN Reason: SHORT OF BREATH/WHEEZING Heparin Sodium (Porcine) (Heparin -) 5,000 unit SQ TID [facility] Last Admin: 03/16/19 06:25 Dose: 5,000 unit Hydrochlorothiazide (Hctz -) 25 mg PO DAILY [facility] Last Admin: 03/15/19 11:31 Dose: 25 mg Hydromorphone HCl (Dilaudid Vial -) 1 mg IVPB Q4H PRN PRN Reason: PAIN LEVEL 6-10 Last Admin: 03/15/19 21:57 Dose: 1 mg Nebivolol (Bystolic -) 10 mg PO DAILY [facility] Last Admin: 03/15/19 12:39 Dose: 10 mg Pantoprazole Sodium (Protonix Iv) 40 mg IVPUSH BID [facility] Last Admin: 03/15/19 21:57 Dose: 40 mg - Objective Vital Signs: Vital Signs Temperature 98.7 F 03/16/19 08:30 Pulse Rate 72 03/16/19 08:30 Respiratory Rate 18 03/16/19 08:30 Blood Pressure 174/60 H 03/16/19 08:30 O2 Sat by Pulse Oximetry (%) 95 03/15/19 21:00 Cardiovascular: Yes: Regular Rate and Rhythm Respiratory: Yes: Regular, CTA Bilaterally Gastrointestinal: Yes: Normal Bowel Sounds, Soft, Tenderness, Epigastrium ( minimal) Labs: CBC, BMP 03/15/19 06:00 03/16/19 06:08 INR, PTT INR 1.11 (0.83-1.09) H 03/14/19 21:33 Assessment/Plan - Problems (1) Abdominal pain Assessment/Plan: pt with pancreatic mass 2017--?dx--will await gi gi consult abdomen MRA to look for ischemia possible mesentric ischemia- PPI review old records from dr snell vascular consult-no evidence of AAA Code(s): R10.9 - UNSPECIFIED ABDOMINAL PAIN (2) Benign essential hypertension Assessment/Plan: bystolic hydralazine increased cardiology pain control recheck BP Code(s): I10 - ESSENTIAL (PRIMARY) HYPERTENSION (3) CKD (chronic kidney disease) stage 3, GFR 30-59 ml/min Assessment/Plan: monitor renal function obtain [facility] records Code(s): N18.3 - CHRONIC KIDNEY DISEASE, STAGE 3 (MODERATE)
[2019-03-16] MEDS: HYDROCHLOROTHIAZIDE 25 MG TABLET (FP) PO SCH (09:55)
[2019-03-16] MEDS: NEBIVOLOL 10 MG TABLET (FP) PO SCH (09:55)
--- NOTE | 2019-03-16 12:04 | PN ---
Progress Note, Physician History of Present Illness: PULMONARY alert,comfortable,-sob,less abd discomfort - Current Medication List Current Medications: Active Medications Acetaminophen (Tylenol -) 650 mg PO Q6H PRN PRN Reason: PAIN LEVEL 1-5 OR FEVER Last Admin: 03/15/19 02:13 Dose: 650 mg Albuterol Sulfate (Ventolin 0.083% Nebulizer Soln -) 1 amp NEB Q6H PRN PRN Reason: SHORT OF BREATH/WHEEZING Heparin Sodium (Porcine) (Heparin -) 5,000 unit SQ TID [facility] Last Admin: 03/16/19 06:25 Dose: 5,000 unit Hydralazine HCl (Apresoline -) 25 mg PO TID [facility] Hydromorphone HCl (Dilaudid Vial -) 1 mg IVPB Q4H PRN PRN Reason: PAIN LEVEL 6-10 Last Admin: 03/15/19 21:57 Dose: 1 mg Isosorbide Mononitrate (Imdur -) 30 mg PO DAILY [facility] Nebivolol (Bystolic -) 10 mg PO DAILY [facility] Last Admin: 03/16/19 09:55 Dose: 10 mg Pantoprazole Sodium (Protonix Iv) 40 mg IVPUSH BID [facility] Last Admin: 03/15/19 21:57 Dose: 40 mg - Objective Vital Signs: Vital Signs Temperature 98.7 F 03/16/19 08:30 Pulse Rate 72 03/16/19 08:30 Respiratory Rate 18 03/16/19 08:30 Blood Pressure 174/60 H 03/16/19 08:30 O2 Sat by Pulse Oximetry (%) 95 03/15/19 21:00 Constitutional: Yes: Calm, Thin Eyes: Yes: WNL HENT: Yes: WNL Neck: Yes: WNL Cardiovascular: Yes: Regular Rate and Rhythm, S1, S2 Respiratory: Yes: Rales (bibasasilar crackles) Gastrointestinal: Yes: Normal Bowel Sounds, Soft Extremities: Yes: WNL Edema: No Labs: CBC, BMP 03/16/19 06:08 Problem List - Problems (1) Abdominal pain Code(s): R10.9 - UNSPECIFIED ABDOMINAL PAIN (2) Accelerated hypertension Code(s): I10 - ESSENTIAL (PRIMARY) HYPERTENSION (3) CKD (chronic kidney disease) stage 3, GFR 30-59 ml/min Code(s): N18.3 - CHRONIC KIDNEY DISEASE, STAGE 3 (MODERATE) (4) Coronary artery disease Code(s): I25.10 - ATHSCL HEART DISEASE OF [place] CORONARY ARTERY W/O ANG PCTRS Qualifiers: Coronary Disease-Associated Artery/Lesion type: unspecified vessel or lesion type [place] vs. transplanted heart: [place] heart Associated angina: without angina Qualified Code(s): I25.10 - Atherosclerotic heart disease of [place] coronary artery without angina pectoris (5) HTN (hypertension) Code(s): I10 - ESSENTIAL (PRIMARY) HYPERTENSION Qualifiers: Hypertension type: essential hypertension Qualified Code(s): I10 - Essential (primary) hypertension (6) Hyperlipidemia Code(s): E78.5 - HYPERLIPIDEMIA, UNSPECIFIED Qualifiers: Hyperlipidemia type: pure hypercholesterolemia Assessment/Plan ASSESSMENT AND PLAN: Abdominal Pain Pancreatic Ca CAD h/o Diverticulitis CKD HTN - pain control - BP control once pain under control - GI eval - CT chest reviewed, appears to have mild apical emphysematous changes but no acute findings - inhaled bronchodilators as needed - DVT prophylaxis DR CASTILLO
[2019-03-16] MEDS: ISOSORBIDE MONONITRATE 30 MG TAB.SR.24H (FP) PO SCH (12:21)
--- NOTE | 2019-03-16 12:34 | CONSULT ---
Consult - text type - Consultation Consultation Note: Renal Consult for Acute Kidney Injury This is a 89 year old woman with history of neuroendocrine tumor of the pancreas, CAD s/p cardiac stent, hypertension, carotid stenosis s/ p endartectomy who presented from home with abdominal pain and developed MARYANN during admission. Seen and examined at the bedside. Continues to have off and on Abd pain. + Nausea but no vomiting or diarrhea. Reports eating normally at home. Denies any flank pain, dysuria, frequency or urgency. No hematuria. Denies any NSAID use. Pt did have CT C+ on admission but contrast infiltrated prior to reaching circulation. PMhx: as above Allergies: as per EMR Family Hx: NC Social Hx: No T/A/D ROS: as per HPI, all other pertinent ros negative Home Medications Medication Instructions Recorded Aspirin [ASA -] 81 mg PO DAILY tab.chew 03/27/15 Hydrochlorothiazide [Hctz -] 12.5 mg PO BID 06/02/17 Nebivolol HCl [Bystolic] 20 mg PO BID 06/02/17 Polyethylene Glycol 3350 [Miralax 17 gm PO DAILY #1 bottle 06/06/17 (For Daily Use) -] Vital Signs Temperature 98.7 F 03/16/19 08:30 Pulse Rate 74 03/16/19 12:20 Respiratory Rate 18 03/16/19 12:20 Blood Pressure 185/85 H 03/16/19 12:20 O2 Sat by Pulse Oximetry (%) 95 03/15/19 21:00 Intake & Output 03/13/19 03/14/19 03/15/19 03/16/19 23:59 23:59 23:59 23:59 Intake Total 0 30 Balance 0 30 Weight 46.266 kg 44.86 kg NAD awake and alert RRR CTA soft NT/ND no bladder distension no LE edema CBC, BMP 03/15/19 06:00 03/16/19 06:08 Current Medications Acetaminophen (Tylenol -) 650 mg PO Q6H PRN PRN Reason: PAIN LEVEL 1-5 OR FEVER Last Admin: 03/15/19 02:13 Dose: 650 mg Albuterol Sulfate (Ventolin 0.083% Nebulizer Soln -) 1 amp NEB Q6H PRN PRN Reason: SHORT OF BREATH/WHEEZING Heparin Sodium (Porcine) (Heparin -) 5,000 unit SQ TID [facility] Last Admin: 03/16/19 06:25 Dose: 5,000 unit Hydralazine HCl (Apresoline -) 25 mg PO TID [facility] Hydromorphone HCl (Dilaudid Vial -) 1 mg IVPB Q4H PRN PRN Reason: PAIN LEVEL 6-10 Last Admin: 03/15/19 21:57 Dose: 1 mg Isosorbide Mononitrate (Imdur -) 30 mg PO DAILY [facility] Last Admin: 03/16/19 12:21 Dose: 30 mg Nebivolol (Bystolic -) 10 mg PO DAILY [facility] Last Admin: 03/16/19 09:55 Dose: 10 mg Pantoprazole Sodium (Protonix Iv) 40 mg IVPUSH BID [facility] Last Admin: 03/15/19 21:57 Dose: 40 mg 89 year old woman with history of neuroendocrine tumor of the pancreas, CAD s/p cardiac stent, hypertension, carotid stenosis s/p endartectomy who presented from home with abdominal pain and developed MARYANN during admission. 1. Acute kidney injury likely due to volume depletion but need to r/o ATN 2. Abdominal pain 3. Neuroendocrine tumor of the pancreas 4. Hypertension 5. Hyponatremia (likely hypovolemic) Check urine studies for FeNa, Urine Eosinophils, UPCR CT of the abdomen showed no obstruction in urine flow Volume expansion with isotonic saline x [address] contrast until renal function returns to baseline Avoid BEN/ARB for now continue bystolic and hydralzine goal BP < 140/90 Thank you Buzz Castañeda DO
[2019-03-16] MEDS ORDERED: SODIUM CHLORIDE 1,000 ML IV SCH (12:45)
[2019-03-16] MEDS: PANTOPRAZOLE SODIUM 40 MG VIAL IVPUSH SCH ×2 (13:43→22:01)
[2019-03-16] MEDS: hydrALAZINE HCL 25 MG TABLET (FP) PO SCH ×2 (13:43→22:01)
--- NOTE | 2019-03-16 13:51 | PN ---
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 Patient has longstanding history of coronary artery disease, status post PCI, stenting; hypercholesterolemia; hypertension; hypertensive cardiovascular disease, status post left carotid endarterectomy; aortic valvular disease; aortic regurgitation; history of nonobstructive mesenteric artery stenosis. She also has been diagnosed to have neuroendocrine carcinoma of the pancreas. Patient still has residual abdominal discomfort now has moved to the epigastric area. Appetite remains poor, denies any nausea or vomiting. No history of chest pain or discomfort. No shortness of breath. Patient remains hypertensive. ALLERGIES: 1. KEFLEX. 2. SULFA. 3. SULFASALAZINE causes nausea and was taking it for rheumatoid arthritis. Active Medications Acetaminophen (Tylenol -) 650 mg PO Q6H PRN PRN Reason: PAIN LEVEL 1-5 OR FEVER Last Admin: 03/15/19 02:13 Dose: 650 mg Albuterol Sulfate (Ventolin 0.083% Nebulizer Soln -) 1 amp NEB Q6H PRN PRN Reason: SHORT OF BREATH/WHEEZING Heparin Sodium (Porcine) (Heparin -) 5,000 unit SQ TID [facility] Last Admin: 03/16/19 06:25 Dose: 5,000 unit Hydralazine HCl (Apresoline -) 25 mg PO TID [facility] Hydromorphone HCl (Dilaudid Vial -) 1 mg IVPB Q4H PRN PRN Reason: PAIN LEVEL 6-10 Last Admin: 03/15/19 21:57 Dose: 1 mg Sodium Chloride (Normal Saline -) 1,000 mls @ 83 mls/hr IV ASDIR [facility] Stop: 03/17/19 12:44 Isosorbide Mononitrate (Imdur -) 30 mg PO DAILY [facility] Last Admin: 03/16/19 12:21 Dose: 30 mg Nebivolol (Bystolic -) 10 mg PO DAILY [facility] Last Admin: 03/16/19 09:55 Dose: 10 mg Pantoprazole Sodium (Protonix Iv) 40 mg IVPUSH BID [facility] Last Admin: 03/15/19 21:57 Dose: 40 mg PHYSICAL EXAMINATION: General: An 89-year-old cachectic female who was complaining of mild abdominal pain. No pallor, cyanosis, clubbing, or jaundice noted. Last Vital Signs Temp Pulse Resp BP Pulse Ox 98.7 F 74 18 185/85 H 96 03/16/19 08:30 03/16/19 12:20 03/16/19 12:20 03/16/19 12:20 03/16/19 09:00 Intake & Output 03/13/19 03/14/19 03/15/19 03/16/19 23:59 23:59 23:59 23:59 Intake Total 0 30 Balance 0 30 Weight 46.266 kg 44.86 kg Neck: Supple. No jugular venous distention. Carotids were 2+. Upstrokes were normal. No bruits were heard. No thyromegaly was present. There was a well-healed left carotid endarterectomy scar. Heart: PMI was in the fifth intercostal space. No heaves or thrills. S1 and S2 were normal. Ejection systolic murmur, grade I/, was heard at the second right intercostal space, ending at early systole. There was a grade I/ apical systolic murmur that was poorly radiating. No diastolic murmur, gallops , or rubs were heard. Lungs: Clear on auscultation. Abdomen: Mild epigastric and paraumbilical tenderness. There was no rebound tenderness. No hepatosplenomegaly was appreciated. No palpable masses. The abdominal aorta was pulsatile, and there was a prominent bruit. Bowel sounds were hypoactive. Extremities: No calf tenderness or dependent edema. Dorsalis pedis pulses were 1+ to 2+. Posterior tibial pulses could not be palpated. CBC, BMP 03/15/19 06:00 03/16/19 06:08 IMPRESSION: 1. Accelerated hypertension. Consider progression of the left renal artery stenosis. 2. Coronary artery disease, status post percutaneous coronary intervention/ stenting, angina pectoris, currently stable. 3. Abdominal pain radiating to the chest, etiology: A. 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 B. Intermittent incarceration of the umbilical hernia. C. Abdominal angina. 4. Cachexia, weight loss, and nausea, most likely related to the previously- mentioned tumor; possibility of metastatic disease needs exclusion. 5. Aortic valvular disease with aortic regurgitation. 6. Hypercholesterolemia. 7. History of rheumatoid arthritis. 8. History of polymyalgia rheumatica. RECOMMENDATIONS: 1. Hydralazine should be increased to 50 mg PO TID as patient continues to be hypertensive. 2. CTA of the abdomen to exclude progression of left renal artery stenosis. 3. Close followup of electrolytes. PROGNOSIS: Guarded. BIANCA MORALES M.D.
[2019-03-16] MEDS ORDERED: HYDROCHLOROTHIAZIDE 25 MG TABLET (FP) PO SCH (14:00)
--- NOTE | 2019-03-16 14:35 | CON.GI ---
Consult Consult Specialty:: Gastroenterology Referred by:: Dr. Braxton Reason for Consultation:: Abdominal pain - History of Present Illness Chief Complaint: Awoken by severe epigastric pain radiating into the back History of Present Illness: 89F was awoken at 3AM by severe epigastric pain that radiated into her back . She has chronic pain related to an enlarging pancreatic tail neuroendocrine tumor which is associated with loss of weight and appetite. She denies vomiting with this pain. The pain has subsided to her usual dull ache. She had previously been evaluated at the pancreatic center at [facility] by Dr. Damian Jackson who did not advise surgery in 04/09. The tumor has doubled in size over the past 2 years. She was referred by Dr. Wang for another opinion with Dr Kristi Donaldson at [facility] who referred her for a test this scheduled for this Friday before rendering her opinion. She last had a colonoscopy with Dr. Brock on 10/26/15 who found a normal rectocolonic anastomosis, pandiverticulosis and led to the removal of hyperplastic rectal polyps. - Past Medical History Cardio/Vascular: Yes: CAD (coronary stents x 2 2007), HTN, Hyperlipdemia, Other (carotid and mesenteric artery stenosis) Gastrointestinal: Yes: Constipation, Diverticulitis (requiring surgery for an abscess), Diverticulosis, Hiatal Hernia, Peptic Ulcer Disease (remotely), Other (hyperplastic rectal polyps, dilated pancreatic duct) Hepatobiliary: Yes: Other (left hepatic lobe cyst) Renal/: Yes: Renal Inusuff ...: No Rheumatology: Yes: Gout - Past Surgical History Past Surgical History: Yes: Carotid Endarterectomy (left), Colectomy (sigmoid colectomy ), Colonoscopy, Hysterectomy (TAHBSO 1975), Stent - Alcohol/Substance Use Hx Alcohol Use: No History of Substance Use: reports: None - Smoking History Smoking history: Former smoker Have you smoked in the past 12 months: No Aproximately how many cigarettes per day: 20 If you are a former smoker, when did you quit?: 1981 - Social History ADL: Independent Occupation: retired [employer] Place of : [facility] History of Recent Travel: No Home Medications - Allergies Allergies/Adverse Reactions: Allergies Allergy/AdvReac Type Severity Reaction Status Date / Time cephalexin monohydrate Allergy Rash Verified 03/14/19 08:32 [From Keflex] Sulfa (Sulfonamide Allergy Verified 03/14/19 08:32 Antibiotics) clarithromycin [From Biaxin] AdvReac Verified 03/14/19 08:32 - Home Medications Home Medications: Ambulatory Orders Aspirin [ASA -] 81 mg PO DAILY tab.chew 03/27/15 Hydrochlorothiazide [Hctz -] 12.5 mg PO BID 06/02/17 Nebivolol HCl [Bystolic] 20 mg PO BID 06/02/17 Polyethylene Glycol 3350 [Miralax (For Daily Use) -] 17 gm PO DAILY #1 bottle Family Medical History Family Hx Cancer: Mother ( of uterine cancer) Review of Systems - Review of Systems Constitutional: reports: Loss of Appetite, Unintentional Wgt. Loss, Weakness Eyes: reports: No Symptoms HENT: reports: No Symptoms Neck: reports: No Symptoms Cardiovascular: reports: No Symptoms Respiratory: reports: No Symptoms Gastrointestinal: reports: Abdominal Pain Genitourinary: reports: No Symptoms Musculoskeletal: reports: Joint Pain Physical Exam-GI Vital Signs: Vital Signs Temperature 98.7 F 03/16/19 08:30 Pulse Rate 74 03/16/19 12:20 Respiratory Rate 18 03/16/19 12:20 Blood Pressure 185/85 H 03/16/19 12:20 O2 Sat by Pulse Oximetry (%) 96 03/16/19 09:00 CBC,CMP WBC 11.2 K/mm3 (4.0-10.0) H 03/15/19 06:00 Corrected WBC (auto) Cancelled 03/14/19 08:40 RBC 3.81 M/mm3 (3.60-5.2) 03/15/19 06:00 Hgb 11.7 GM/dL (10.7-15.3) 03/15/19 06:00 Hct 36.5 % (32.4-45.2) 03/15/19 06:00 MCV 95.8 fl (80-96) 03/15/19 06:00 MCH 30.8 pg (25.7-33.7) 03/15/19 06:00 MCHC 32.1 g/dl (32.0-36.0) 03/15/19 06:00 RDW 15.0 % (11.6-15.6) 03/15/19 06:00 Plt Count 210 K/MM3 (134-434) 03/15/19 06:00 MPV 10.0 fl (7.5-11.1) 03/15/19 06:00 Absolute Neuts (auto) 8.9 K/mm3 (1.5-8.0) H 03/14/19 11:47 Neutrophils % 85.4 % (42.8-82.8) H D 03/14/19 11:47 Lymphocytes % 6.6 % (8-40) L D 03/14/19 11:47 Monocytes % 7.2 % (3.8-10.2) 03/14/19 11:47 Eosinophils % 0.1 % (0-4.5) D 03/14/19 11:47 Basophils % 0.7 % (0-2.0) 03/14/19 11:47 Nucleated RBC % 0 % (0-0) 03/14/19 11:47 Platelet Estimate Cancelled 03/14/19 08:40 Platelet Comment Cancelled 03/14/19 08:40 Sodium 133 mmol/L (136-145) L 03/16/19 06:08 Potassium 3.5 mmol/L (3.5-5.1) 03/16/19 06:08 Chloride 94 mmol/L (98-107) L 03/16/19 06:08 Carbon Dioxide 25 mmol/L (21-32) 03/16/19 06:08 Anion Gap 14 MMOL/L (8-16) 03/16/19 06:08 BUN 23.8 mg/dL (7-18) H 03/16/19 06:08 Creatinine 1.5 mg/dL (0.55-1.3) H 03/16/19 06:08 Est GFR (CKD-EPI)AfAm 35.43 03/16/19 06:08 Est GFR (CKD-EPI)NonAf 30.57 03/16/19 06:08 Random Glucose 88 mg/dL (74-106) 03/16/19 06:08 Hemoglobin A1c % 4.7 % (4.2-6.3) 03/15/19 06:00 Calcium 9.5 mg/dL (8.5-10.1) 03/16/19 06:08 Total Bilirubin 0.9 mg/dL (0.2-1) 03/16/19 06:08 AST 20 U/L (15-37) 03/16/19 06:08 ALT 17 U/L (13-61) 03/16/19 06:08 Alkaline Phosphatase 88 U/L (45-117) 03/16/19 06:08 Creatine Kinase 71 U/L (26-192) 03/14/19 08:40 Troponin I < 0.02 ng/ml (0.00-0.05) 03/14/19 08:40 Total Protein 7.4 g/dl (6.4-8.2) 03/16/19 06:08 Albumin 3.4 g/dl (3.4-5.0) 03/16/19 06:08 Triglycerides 95 mg/dL (0-150) 03/15/19 06:00 Cholesterol 248 mg/dL (50-200) H 03/15/19 06:00 Total LDL Cholesterol 143 mg/dL (5-100) H 03/15/19 06:00 HDL Cholesterol 72 mg/dL (40-60) H 03/15/19 06:00 Lipase 76 U/L (73-393) 03/14/19 08:40 Current Medications Generic Name Dose Route Start Last Admin Trade Name Freq PRN Reason Stop Dose Admin Acetaminophen 650 mg 03/14/19 15:23 03/15/19 02:13 Tylenol - PO 650 mg Q6H PRN Administration PAIN LEVEL 1-5 OR FEVER Albuterol Sulfate 1 amp 03/15/19 14:54 Ventolin 0.083% Nebulizer Soln - NEB Q6H PRN SHORT OF BREATH/WHEEZING Heparin Sodium (Porcine) 5,000 unit 03/15/19 14:00 03/16/19 13:43 Heparin - SQ 5,000 unit TID LISA Administration Hydralazine HCl 25 mg 03/16/19 14:00 03/16/19 13:43 Apresoline - PO 25 mg TID LISA Administration Hydromorphone HCl 1 mg 03/15/19 17:01 03/15/19 21:57 Dilaudid Vial - IVPB 1 mg Q4H PRN Administration PAIN LEVEL 6-10 Sodium Chloride 1,000 mls @ 83 mls/hr 03/16/19 12:45 03/16/19 13:44 Normal Saline - IV 03/17/19 12:44 83 mls/hr ASDIR LISA Administration Isosorbide Mononitrate 30 mg 03/16/19 11:30 03/16/19 12:21 Imdur - PO 30 mg DAILY [facility] Administration Nebivolol 10 mg 03/15/19 10:00 03/16/19 09:55 Bystolic - PO 10 mg DAILY [facility] Administration Pantoprazole Sodium 40 mg 03/15/19 12:15 03/16/19 13:43 Protonix Iv IVPUSH 40 mg BID [facility] Administration Constitutional: Yes: No Distress Eyes: Yes: Conjunctiva Clear HENT: Yes: Atraumatic Neck: Yes: Trachea Midline, Other (healed left neck incision) Cardiovascular: Yes: Regular Rate and Rhythm Respiratory: Yes: CTA Bilaterally Gastrointestinal Inspection: Yes: Scars (healed vertical suprapubic incision) ...Auscultate: Yes: Normoactive Bowel Sounds ...Palpate: Yes: Soft, Tenderness (mild left epigastric tenderness) ...Percussion: Yes: Tympanitic ...Rectal Exam: Yes: Guaiac Negative (no masses, brown g neg stool) Edema: No Neurological: Yes: Alert, Oriented Labs: CBC, BMP 03/15/19 06:00 03/16/19 06:08 INR, PTT INR 1.11 (0.83-1.09) H 03/14/19 21:33 Imaging - Results Cat Scan: Report Reviewed ( Final Report CT ABDOMEN & PELVIS CT WITH CONTR Show Printer-Friendly Version Patient Name: Kristi Rodriguez : Jan-1930 ID: [id number] Study Date: 14-Mar-2019 10:35 June Gaitan Name: KRISTI RODRIGUEZ DEPARTMENT OF RADIOLOGY Phys: Marilin Young RESIDENT : 1930 Age: 89 Sex: F [facility] Acct: [id number] Loc: [address] Exam Date: 03/14/19 Status: [place] [id number] Unit Number: [id number] EXAM#: TYPE/EXAM: RESULT: CT/ ABDOMEN PELVIS CT WITH CONTR CT/CHEST CT WITH CONTRAST Rule out dissection. CT scan of the chest, abdomen and pelvis without intravenous and oral contrast. Contiguous axial scans were obtained followed with coronal/ sagittal reconstruction images. There was IV infiltration of 63 cc of Omnipaque 350 in the left arm and hence a post intravenous contrast CT scan of the chest, abdomen pelvis was not obtained. Dr. Garrick Washington, caring resident was informed by the technologist and patient was sent to the emergency room. Compared to prior chest x-ray dated 03/14/2019. Compared to prior CT scan of the abdomen pelvis dated 06/02/2017 Evaluation of the lung demonstrates mild atelectatic changes in the dependent portion of the lower lobes. No gross focal infiltrates, pneumothorax or pleural effusion identified, bilaterally. Included lower neck appears unremarkable. There is [id number] cardiomegaly. Dense calcification of the carotid arteries are present. Dense calcified plaques in the aortic arch. The ascending aorta measures 2.9 cm which is within normal limits. Descending thoracic aorta measure 2.9 cm in AP dimension with dense calcified atheromatous plaques. The abdominal aorta is within normal limits in size without dilatation. Dense calcified atheromatous plaques are also present. No gross enlarged mediastinal or hilar lymph nodes are identified. The liver is within normal limits in size with a low-attenuation lesion in the left hepatic lobe measuring 3.4 cm compatible with a cyst. Gallbladder is adequately distended with questionable wall thickening. The spleen and pancreas appear unremarkable. Moderately distended stomach without wall thickening. Both kidneys are within normal limits in size with multiple cysts the largest exophytic left renal cyst measuring 2.2 cm. There is no evidence of small bowel obstruction. Normal- appearing terminal ileum and appendix. Normal amount of fecal residue in included portion of the colon without gross wall thickening. Notes made of a small fat-containing umbilical hernia. No free air, free fluid or gross enlarged lymph nodes are identified Impression: See discussion above Postcontrast examination could not be obtained due to infiltration of contrast in the left arm. No acute lung disease is present. Normal size thoracic and abdominal aorta without aneurysmal dilatation. Diffuse calcified atheromatous plaques are present. [id number] cardiomegaly with dense calcification of the coronary arteries. Left hepatic lobe cyst measuring 3.4 cm. Bilateral renal cysts, as described above. Small fat-containing umbilical hernia. Reported By: Bernard Woods MD 03/14/19 1212 Marilin Young Technologist: Gilbert Hernandez Transcribed Date/Time: 1212 Geophysical Engineer: Bernard Woods Printed Date/Time: By: Signed by : Bernard Woods Signed on: 14-Mar-2019 12:13) Problem List - Problems (1) Abdominal pain Code(s): R10.9 - UNSPECIFIED ABDOMINAL PAIN Qualifiers: Abdominal location: epigastric Qualified Code(s): R10.13 - Epigastric pain (2) Primary pancreatic neuroendocrine tumor Code(s): D3A.8 - OTHER BENIGN NEUROENDOCRINE TUMORS (3) Weight loss Code(s): R63.4 - ABNORMAL WEIGHT LOSS (4) Appetite impaired Code(s): R63.0 - ANOREXIA (5) Diverticulosis Code(s): K57.90 - DVRTCLOS OF INTEST, PART UNSP, W/O PERF OR ABSCESS W/O BLEED Qualifiers: Diverticulosis site: diverticulosis of large intestine Diverticulosis bleeding: diverticulosis without bleeding Qualified Code(s): K57.30 - Diverticulosis of large intestine without perforation or abscess without bleeding (6) History of colectomy Code(s): Z90.49 - ACQUIRED ABSENCE OF OTHER SPECIFIED PARTS OF DIGESTIVE TRACT (7) S/P PTCA (percutaneous transluminal coronary angioplasty) Code(s): Z98.61 - CORONARY ANGIOPLASTY STATUS (8) Dilated pancreatic duct Code(s): K86.89 - OTHER SPECIFIED DISEASES OF PANCREAS (9) Mesenteric artery stenosis Code(s): K55.1 - CHRONIC VASCULAR DISORDERS OF INTESTINE (10) Carotid arterial disease Code(s): I77.9 - DISORDER OF ARTERIES AND ARTERIOLES, UNSPECIFIED Qualifiers: Laterality: left Qualified Code(s): I77.9 - Disorder of arteries and arterioles, unspecified Assessment/Plan Assessment: -- I believe that Kristi's episode of pain is related to her enlarging neuroendocrine neoplasm of the tail of the pancreas. This also accounts for her weight loss. She is in the midst of getting a second surgical opinion at [facility] with Dr Donaldson but needs to make it there for her testing this Friday. The pain has fortunately subsided. She also has a dilated pancreatic duct and left lobe hepatic cyst noted on a 2017 MRA that revealed SMA stenoses that did not appear critical enough to be the cause of her pain and weight loss. Personal h/o partial colectomy for diverticular disease Plan: -- Will advance diet. If tolerated can discharge with the plan to pursue additional imaging at [facility] this Friday to determine operability. If the pain persists attempts should be made to try to transfer her directly. She may need a narcotic analgesic at home
[2019-03-16 15:39] VITALS: BMI 19.1
[2019-03-16] MEDS: HYDROmorphone HCl 2 MG/ML VIAL IVPB PRN (22:01)
[2019-03-17 06:16] LABS: BASO % 0.7 % (0-2.0); EOS % 0.3 % (0-4.5); HEMATOCRIT 30.1 % (32.4-45.2); HEMOGLOBIN 9.8 GM/dL (10.7-15.3); LYMPH % 7.5 % (8-40); MCHC 32.4 g/dl (32.0-36.0); MEAN CELL VOLUME 95.8 fl (80-96); MEAN PLT VOLUME 10.6 fl (7.5-11.1); MONO % 11.1 % (3.8-10.2); NEUT % 80.4 % (42.8-82.8); PLATELET COUNT 178 K/MM3 (134-434); RBC 3.14 M/mm3 (3.60-5.2); RDW 14.9 % (11.6-15.6); WHITE BLOOD COUNT 11.7 K/mm3 (4.0-10.0)
[2019-03-17 06:37] LABS: ALBUMIN 2.8 g/dl (3.4-5.0); BILIRUBIN,TOTAL 0.9 mg/dL (0.2-1); BLOOD UREA NITROGEN 27.3 mg/dL (7-18); CALCIUM 8.4 mg/dL (8.5-10.1); CREATININE 1.3 mg/dL (0.55-1.3); POTASSIUM 3.3 mmol/L (3.5-5.1); TOT PROT 6.4 g/dl (6.4-8.2)
[2019-03-17] MEDS: hydrALAZINE HCL 25 MG TABLET (FP) PO SCH (06:49)
[2019-03-17] MEDS: HEPARIN NA (PORCINE) 5,000 UNITS/ML 1ML VIAL SQ SCH ×3 (06:49→22:04)
[2019-03-17] MEDS: PANTOPRAZOLE SODIUM 40 MG VIAL IVPUSH SCH ×2 (09:31→22:04)
[2019-03-17] MEDS: NEBIVOLOL 10 MG TABLET (FP) PO SCH (09:31)
[2019-03-17] MEDS: ISOSORBIDE MONONITRATE 30 MG TAB.SR.24H (FP) PO SCH (09:31)
--- NOTE | 2019-03-17 10:13 | PN ---
Progress Note, Physician - Current Medication List Current Medications: Active Medications Acetaminophen (Tylenol -) 650 mg PO Q6H PRN PRN Reason: PAIN LEVEL 1-5 OR FEVER Last Admin: 03/15/19 02:13 Dose: 650 mg Albuterol Sulfate (Ventolin 0.083% Nebulizer Soln -) 1 amp NEB Q6H PRN PRN Reason: SHORT OF BREATH/WHEEZING Heparin Sodium (Porcine) (Heparin -) 5,000 unit SQ TID [facility] Last Admin: 03/17/19 06:49 Dose: 5,000 unit Hydralazine HCl (Apresoline -) 50 mg PO TID [facility] Hydromorphone HCl (Dilaudid Vial -) 1 mg IVPB Q4H PRN PRN Reason: PAIN LEVEL 6-10 Last Admin: 03/16/19 22:01 Dose: 1 mg Sodium Chloride (Normal Saline -) 1,000 mls @ 83 mls/hr IV ASDIR [facility] Stop: 03/17/19 12:44 Last Admin: 03/16/19 13:44 Dose: 83 mls/hr Isosorbide Mononitrate (Imdur -) 30 mg PO DAILY [facility] Last Admin: 03/17/19 09:31 Dose: 30 mg Nebivolol (Bystolic -) 10 mg PO DAILY [facility] Last Admin: 03/17/19 09:31 Dose: 10 mg Pantoprazole Sodium (Protonix Iv) 40 mg IVPUSH BID [facility] Last Admin: 03/17/19 09:31 Dose: 40 mg - Objective Vital Signs: Vital Signs Temperature 98.7 F 03/17/19 08:42 Pulse Rate 74 03/17/19 08:42 Respiratory Rate 17 03/17/19 08:42 Blood Pressure 195/76 H 03/17/19 08:42 O2 Sat by Pulse Oximetry (%) 96 03/16/19 21:00 Cardiovascular: Yes: S1, S2 Respiratory: Yes: Regular, CTA Bilaterally Gastrointestinal: Yes: Normal Bowel Sounds, Soft, Tenderness, Epigastrium Labs: CBC, BMP 03/17/19 05:15 03/17/19 05:15 INR, PTT INR 1.11 (0.83-1.09) H 03/14/19 21:33 Assessment/Plan - Problems (1) Abdominal pain Assessment/Plan: pt with pancreatic mass 2017--dx-neuroendocrine neoplasm of the tail of the pancreas gi consult noted pt with more pain may need to be transferred abdomen MRA to look for ischemia possible mesentric ischemia- PPI review old records from dr snell vascular consult-no evidence of AAA Code(s): R10.9 - UNSPECIFIED ABDOMINAL PAIN (2) Benign essential hypertension Assessment/Plan: pt with h/o LUAN bystolic hydralazine increased 50 tid momitor cardiology pain control recheck BP Code(s): I10 - ESSENTIAL (PRIMARY) HYPERTENSION (3) CKD (chronic kidney disease) stage 3, GFR 30-59 ml/min Assessment/Plan: monitor renal function obtain old records Code(s): N18.3 - CHRONIC KIDNEY DISEASE, STAGE 3 (MODERATE)
--- NOTE | 2019-03-17 10:32 | PN ---
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 Coronary artery disease, status post PCI, angina pectoris. Hypertension, hypertensive cardiovascular disease,poorly controlled. History of nonobstructive left renal artery stenosis. She had another episode of severe abdominal painlast evening requiring Dilaudid. severe cachexia. Presently she has mild discomfort. No chest pain or discomfort, no dyspnea. Appetite remains poor. Hypokalemia is being corrected. ALLERGIES: 1. KEFLEX. 2. SULFA. 3. SULFASALAZINE causes nausea and was taking it for rheumatoid arthritis. Active Medications Acetaminophen (Tylenol -) 650 mg PO Q6H PRN PRN Reason: PAIN LEVEL 1-5 OR FEVER Last Admin: 03/15/19 02:13 Dose: 650 mg Albuterol Sulfate (Ventolin 0.083% Nebulizer Soln -) 1 amp NEB Q6H PRN PRN Reason: SHORT OF BREATH/WHEEZING Heparin Sodium (Porcine) (Heparin -) 5,000 unit SQ TID [facility] Last Admin: 03/17/19 06:49 Dose: 5,000 unit Hydralazine HCl (Apresoline -) 50 mg PO TID [facility] Hydromorphone HCl (Dilaudid Vial -) 1 mg IVPB Q4H PRN PRN Reason: PAIN LEVEL 6-10 Last Admin: 03/16/19 22:01 Dose: 1 mg Potassium Chloride/Dextrose/Sod Cl (D5-1/2ns+20 Meq Kcl -) 20 meq in 1,000 mls @ 75 mls/hr IV ASDIR [facility] Potassium Chloride (Potassium Chloride 10 Meq Premix Ivpb -) 10 meq in 100 mls @ 100 mls/hr IVPB Q60M [facility] Stop: 03/17/19 12:14 Isosorbide Mononitrate (Imdur -) 30 mg PO DAILY [facility] Last Admin: 03/17/19 09:31 Dose: 30 mg Nebivolol (Bystolic -) 10 mg PO DAILY [facility] Last Admin: 03/17/19 09:31 Dose: 10 mg Pantoprazole Sodium (Protonix Iv) 40 mg IVPUSH BID [facility] Last Admin: 03/17/19 09:31 Dose: 40 mg PHYSICAL EXAMINATION: General: 89-year-old cachectic female who was complaining of mild abdominal pain. No pallor, cyanosis, clubbing, or jaundice noted. Last Vital Signs Temp Pulse Resp BP Pulse Ox 98.7 F 74 17 195/76 H 96 03/17/19 08:42 03/17/19 08:42 03/17/19 08:42 03/17/19 08:42 03/16/19 21:00 Intake & Output 03/14/19 03/15/19 03/16/19 03/17/19 23:59 23:59 23:59 23:59 Intake Total 0 150 1100 Balance 0 150 1100 Weight 46.266 kg 44.86 kg 44.452 kg Neck: Supple. No jugular venous distention. Carotids were 2+. Upstrokes were normal. No bruits were heard. No thyromegaly was present. There was a well-healed left carotid endarterectomy scar. Heart: PMI was in the fifth intercostal space. No heaves or thrills. S1 and S2 were normal. Ejection systolic murmur, grade 1/6, was heard at the second right intercostal space, ending at early systole. There was a grade I/ apical systolic murmur that was poorly radiating. No diastolic murmur, gallops , or rubs were heard. Lungs: Clear on auscultation. Abdomen: Slight epigastric and paraumbilical tenderness.. There was no rebound tenderness. No hepatosplenomegaly was appreciated. No palpable masses. The abdominal aorta was pulsatile, and there was a prominent bruit. Bowel sounds were hypoactive. Extremities: No calf tenderness or dependent edema. Dorsalis pedis pulses were 1+ to 2+. Posterior tibial pulses could not be palpated. CBC, BMP 03/17/19 05:15 03/17/19 05:15 IMPRESSION: 1. Abdominal pain radiating to the chest, etiology: A. 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 b).. Abdominal angina. 2. Coronary artery disease, status post percutaneous coronary intervention/ stenting, angina pectoris, currently stable. 3. Accelerated hypertension, poorly controlled. Consider progression of the left renal artery stenosis. 4. Cachexia, weight loss, and nausea, most likely related to the previously-mentioned tumor; possibility of metastatic disease needs exclusion. 5. Aortic valvular disease with aortic regurgitation. 6. Hypercholesterolemia. 7. History of rheumatoid arthritis. 8. History of polymyalgia rheumatica. RECOMMENDATIONS: 1. Patient is being considered for transfer to [facility]. 2. Further adjustment of antihypertensive therapy. PROGNOSIS: Critical. BIANCA MORALES M.D.
[2019-03-17 11:20] LABS: ANISOCYTOSIS 0; MACROCYTOSIS 1+; OVALOCYTE 1+; PLATELET ESTIMATE NORMAL
[2019-03-17] MEDS: D5-1/2NS+20 MEQ KCL - 20 MEQ/1,000 ML INFUS.BAG IV SCH (11:34)
[2019-03-17] MEDS: KCL 10 MEQ IVPB 10 MEQ/100 ML INFUS.BAG IVPB SCH ×2 (11:35→13:38)
[2019-03-17] MEDS: HYDROmorphone HCl 2 MG/ML VIAL IVPB PRN ×2 (12:08→22:47)
--- NOTE | 2019-03-17 12:25 | PN ---
Progress Note, Physician History of Present Illness: pulmonary alert,c/o mild abd discomfort,-sob - Current Medication List Current Medications: Active Medications Acetaminophen (Tylenol -) 650 mg PO Q6H PRN PRN Reason: PAIN LEVEL 1-5 OR FEVER Last Admin: 03/15/19 02:13 Dose: 650 mg Albuterol Sulfate (Ventolin 0.083% Nebulizer Soln -) 1 amp NEB Q6H PRN PRN Reason: SHORT OF BREATH/WHEEZING Heparin Sodium (Porcine) (Heparin -) 5,000 unit SQ TID [facility] Last Admin: 03/17/19 06:49 Dose: 5,000 unit Hydralazine HCl (Apresoline -) 50 mg PO TID [facility] Hydromorphone HCl (Dilaudid Vial -) 1 mg IVPB Q4H PRN PRN Reason: PAIN LEVEL 6-10 Last Admin: 03/17/19 12:08 Dose: 1 mg Potassium Chloride/Dextrose/Sod Cl (D5-1/2ns+20 Meq Kcl -) 20 meq in 1,000 mls @ 75 mls/hr IV ASDIR [facility] Last Admin: 03/17/19 11:34 Dose: 75 mls/hr Potassium Chloride (Potassium Chloride 10 Meq Premix Ivpb -) 10 meq in 100 mls @ 100 mls/hr IVPB Q60M [facility] Stop: 03/17/19 13:14 Last Admin: 03/17/19 11:35 Dose: 100 mls/hr Isosorbide Mononitrate (Imdur -) 30 mg PO DAILY [facility] Last Admin: 03/17/19 09:31 Dose: 30 mg Nebivolol (Bystolic -) 10 mg PO DAILY [facility] Last Admin: 03/17/19 09:31 Dose: 10 mg Pantoprazole Sodium (Protonix Iv) 40 mg IVPUSH BID [facility] Last Admin: 03/17/19 09:31 Dose: 40 mg - Objective Vital Signs: Vital Signs Temperature 98.7 F 03/17/19 08:42 Pulse Rate 74 03/17/19 08:42 Respiratory Rate 17 03/17/19 08:42 Blood Pressure 195/76 H 03/17/19 08:42 O2 Sat by Pulse Oximetry (%) 96 03/16/19 21:00 Constitutional: Yes: Calm, Thin Eyes: Yes: WNL HENT: Yes: WNL Neck: Yes: WNL Cardiovascular: Yes: Regular Rate and Rhythm, S2 Respiratory: Yes: CTA Bilaterally Gastrointestinal: Yes: Normal Bowel Sounds, Soft Extremities: Yes: WNL Edema: No Labs: CBC, BMP 03/17/19 05:15 03/17/19 05:15 INR, PTT INR 1.11 (0.83-1.09) H 03/14/19 21:33 Problem List - Problems (1) Abdominal pain Code(s): R10.9 - UNSPECIFIED ABDOMINAL PAIN Qualifiers: Abdominal location: epigastric Qualified Code(s): R10.13 - Epigastric pain (2) Accelerated hypertension Code(s): I10 - ESSENTIAL (PRIMARY) HYPERTENSION (3) CKD (chronic kidney disease) stage 3, GFR 30-59 ml/min Code(s): N18.3 - CHRONIC KIDNEY DISEASE, STAGE 3 (MODERATE) (4) Coronary artery disease Code(s): I25.10 - ATHSCL HEART DISEASE OF [place] CORONARY ARTERY W/O ANG PCTRS Qualifiers: Coronary Disease-Associated Artery/Lesion type: unspecified vessel or lesion type [place] vs. transplanted heart: [place] heart Associated angina: without angina Qualified Code(s): I25.10 - Atherosclerotic heart disease of [place] coronary artery without angina pectoris (5) HTN (hypertension) Code(s): I10 - ESSENTIAL (PRIMARY) HYPERTENSION Qualifiers: Hypertension type: essential hypertension Qualified Code(s): I10 - Essential (primary) hypertension (6) Hyperlipidemia Code(s): E78.5 - HYPERLIPIDEMIA, UNSPECIFIED Qualifiers: Hyperlipidemia type: pure hypercholesterolemia Assessment/Plan ASSESSMENT AND PLAN: Abdominal Pain Pancreatic Ca CAD h/o Diverticulitis CKD HTN - pain control - BP control - CT chest reviewed, appears to have mild apical emphysematous changes but no acute findings - inhaled bronchodilators as needed - DVT prophylaxis DR CASTILLO
--- NOTE | 2019-03-17 13:18 | PN ---
Progress Note (short form) - Note Progress Note: Renal follow up for MARYANN Seen and examined at the bedside awake and alert reports abd pain that restarted last night. she is cautious to eat as she thinks it may make her pain worse denies any sob, cp, fever, chills on IVF, making urine Vital Signs Temperature 98.7 F 03/17/19 08:42 Pulse Rate 74 03/17/19 08:42 Respiratory Rate 17 03/17/19 08:42 Blood Pressure 195/76 H 03/17/19 08:42 O2 Sat by Pulse Oximetry (%) 95 03/17/19 09:00 Intake & Output 03/14/19 03/15/19 03/16/19 03/17/19 23:59 23:59 23:59 23:59 Intake Total 0 150 1100 Balance 0 150 1100 Weight 46.266 kg 44.86 kg 44.452 kg NAD CTA no Le edema CBC, BMP 03/17/19 05:15 03/17/19 05:15 Current Medications Acetaminophen (Tylenol -) 650 mg PO Q6H PRN PRN Reason: PAIN LEVEL 1-5 OR FEVER Last Admin: 03/15/19 02:13 Dose: 650 mg Albuterol Sulfate (Ventolin 0.083% Nebulizer Soln -) 1 amp NEB Q6H PRN PRN Reason: SHORT OF BREATH/WHEEZING Heparin Sodium (Porcine) (Heparin -) 5,000 unit SQ TID [facility] Last Admin: 03/17/19 06:49 Dose: 5,000 unit Hydralazine HCl (Apresoline -) 50 mg PO TID [facility] Hydromorphone HCl (Dilaudid Vial -) 1 mg IVPB Q4H PRN PRN Reason: PAIN LEVEL 6-10 Last Admin: 03/17/19 12:08 Dose: 1 mg Potassium Chloride/Dextrose/Sod Cl (D5-1/2ns+20 Meq Kcl -) 20 meq in 1,000 mls @ 75 mls/hr IV ASDIR [facility] Last Admin: 03/17/19 11:34 Dose: 75 mls/hr Isosorbide Mononitrate (Imdur -) 30 mg PO DAILY [facility] Last Admin: 03/17/19 09:31 Dose: 30 mg Nebivolol (Bystolic -) 10 mg PO DAILY [facility] Last Admin: 03/17/19 09:31 Dose: 10 mg Pantoprazole Sodium (Protonix Iv) 40 mg IVPUSH BID [facility] Last Admin: 03/17/19 09:31 Dose: 40 mg 89 year old woman with history of neuroendocrine tumor of the pancreas, CAD s/p cardiac stent, hypertension, carotid stenosis s/p endartectomy who presented from home with abdominal pain and developed MARYANN during admission. 1. Acute kidney injury likely due to volume depletion but need to r/o ATN 2. Abdominal pain 3. Neuroendocrine tumor of the pancreas 4. Hypertension 5. Hyponatremia (likely hypovolemic) Renal function improving Urine studies are pending, UA showed 2+ protein continue IVF for now CT of the abdomen showed no obstruction in urine flow Volume expansion with isotonic saline x [address] contrast until renal function returns to baseline Avoid BEN/ARB for now continue bystolic and hydralzine goal BP < 140/90 Thank you Buzz Castañeda DO
[2019-03-17] MEDS: hydrALAZINE HCL 50 MG TABLET (FP) PO SCH ×2 (13:46→22:04)
[2019-03-18] MEDS: HEPARIN NA (PORCINE) 5,000 UNITS/ML 1ML VIAL SQ SCH ×3 (05:43→21:02)
[2019-03-18] MEDS: D5-1/2NS+20 MEQ KCL - 20 MEQ/1,000 ML INFUS.BAG IV SCH ×2 (05:44→12:21)
[2019-03-18] MEDS: hydrALAZINE HCL 50 MG TABLET (FP) PO SCH ×3 (05:44→21:02)
[2019-03-18] MEDS: NEBIVOLOL 10 MG TABLET (FP) PO SCH (09:16)
[2019-03-18] MEDS: ISOSORBIDE MONONITRATE 30 MG TAB.SR.24H (FP) PO SCH (09:17)
[2019-03-18] MEDS: PANTOPRAZOLE SODIUM 40 MG VIAL IVPUSH SCH ×2 (09:17→21:02)
--- NOTE | 2019-03-18 10:15 | PN ---
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 Coronary artery disease, status post PCI, angina pectoris. Hypertension, hypertensive cardiovascular disease,poorly controlled. History of nonobstructive left renal artery stenosis. She had another episode of severe abdominal painlast evening requiring Dilaudid. severe cachexia. Presently she has mild discomfort. No chest pain or discomfort, no dyspnea. Appetite remains poor. Hypokalemia is being corrected. ALLERGIES: 1. KEFLEX. 2. SULFA. 3. SULFASALAZINE causes nausea and was taking it for rheumatoid arthritis. Active Medications Acetaminophen (Tylenol -) 650 mg PO Q6H PRN PRN Reason: PAIN LEVEL 1-5 OR FEVER Last Admin: 03/15/19 02:13 Dose: 650 mg Albuterol Sulfate (Ventolin 0.083% Nebulizer Soln -) 1 amp NEB Q6H PRN PRN Reason: SHORT OF BREATH/WHEEZING Heparin Sodium (Porcine) (Heparin -) 5,000 unit SQ TID [facility] Last Admin: 03/18/19 05:43 Dose: 5,000 unit Hydralazine HCl (Apresoline -) 50 mg PO TID [facility] Last Admin: 03/18/19 05:44 Dose: 50 mg Hydromorphone HCl (Dilaudid Vial -) 1 mg IVPB Q4H PRN PRN Reason: PAIN LEVEL 6-10 Last Admin: 03/17/19 22:47 Dose: 1 mg Potassium Chloride/Dextrose/Sod Cl (D5-1/2ns+20 Meq Kcl -) 20 meq in 1,000 mls @ 75 mls/hr IV ASDIR [facility] Last Admin: 03/18/19 05:44 Dose: 75 mls/hr Isosorbide Mononitrate (Imdur -) 30 mg PO DAILY [facility] Last Admin: 03/18/19 09:17 Dose: 30 mg Nebivolol (Bystolic -) 10 mg PO DAILY [facility] Last Admin: 03/18/19 09:16 Dose: 10 mg Pantoprazole Sodium (Protonix Iv) 40 mg IVPUSH BID [facility] Last Admin: 03/18/19 09:17 Dose: 40 mg PHYSICAL EXAMINATION: General: 89-year-old cachectic female who was complaining of mild abdominal pain. No pallor, cyanosis, clubbing, or jaundice noted. Last Vital Signs Temp Pulse Resp BP Pulse Ox 98.2 F 73 18 149/58 L 97 03/18/19 08:40 03/18/19 08:40 03/18/19 09:00 03/18/19 08:40 03/18/19 09:00 Intake & Output 03/15/19 03/16/19 03/17/19 03/18/19 23:59 23:59 23:59 23:59 Intake Total 0 150 1930 1010 Balance 0 150 1930 1010 Weight 44.86 kg 44.452 kg Neck: Supple. No jugular venous distention. Carotids were 2+. Upstrokes were normal. No bruits were heard. No thyromegaly was present. There was a well-healed left carotid endarterectomy scar. Heart: PMI was in the fifth intercostal space. No heaves or thrills. S1 and S2 were normal. Ejection systolic murmur, grade 1/6, was heard at the second right intercostal space, ending at early systole. There was a grade I/ apical systolic murmur that was poorly radiating. No diastolic murmur, gallops , or rubs were heard. Lungs: Clear on auscultation. Abdomen: Slight epigastric and paraumbilical tenderness.. There was no rebound tenderness. No hepatosplenomegaly was appreciated. No palpable masses. The abdominal aorta was pulsatile, and there was a prominent bruit. Bowel sounds were hypoactive. Extremities: No calf tenderness or dependent edema. Dorsalis pedis pulses were 1+ to 2+. Posterior tibial pulses could not be palpated. CBC, BMP 03/17/19 05:15 03/17/19 05:15 IMPRESSION: 1. Abdominal pain radiating to the chest, etiology: a). 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 b). Abdominal angina. 2. Coronary artery disease, status post percutaneous coronary intervention/ stenting, angina pectoris, currently stable. 3. Accelerated hypertension, poorly controlled. Consider progression of the left renal artery stenosis. 4. Cachexia, weight loss, and nausea, most likely related to the previously- mentioned tumor; possibility of metastatic disease needs exclusion. 5. Aortic valvular disease with aortic regurgitation. 6. Hypercholesterolemia. 7. History of rheumatoid arthritis. 8. History of polymyalgia rheumatica. RECOMMENDATIONS: 1. Patient is being considered for transfer to [facility]. 2. Further adjustment of antihypertensive therapy. PROGNOSIS: Critical. BIANCA MORALES M.D.
[2019-03-18] MEDS: HYDROmorphone HCl 2 MG/ML VIAL IVPB PRN ×2 (12:24→21:27)
--- NOTE | 2019-03-18 13:05 | PN ---
Progress Note, Physician Chief Complaint: patient complaining of abdominal pain when she eats - Current Medication List Current Medications: Active Medications Acetaminophen (Tylenol -) 650 mg PO Q6H PRN PRN Reason: PAIN LEVEL 1-5 OR FEVER Last Admin: 03/15/19 02:13 Dose: 650 mg Albuterol Sulfate (Ventolin 0.083% Nebulizer Soln -) 1 amp NEB Q6H PRN PRN Reason: SHORT OF BREATH/WHEEZING Heparin Sodium (Porcine) (Heparin -) 5,000 unit SQ TID [facility] Last Admin: 03/18/19 05:43 Dose: 5,000 unit Hydralazine HCl (Apresoline -) 50 mg PO TID [facility] Last Admin: 03/18/19 05:44 Dose: 50 mg Hydromorphone HCl (Dilaudid Vial -) 1 mg IVPB Q4H PRN PRN Reason: PAIN LEVEL 6-10 Last Admin: 03/18/19 12:24 Dose: 1 mg Potassium Chloride/Dextrose/Sod Cl (D5-1/2ns+20 Meq Kcl -) 20 meq in 1,000 mls @ 75 mls/hr IV ASDIR [facility] Last Admin: 03/18/19 12:21 Dose: Not Given Isosorbide Mononitrate (Imdur -) 30 mg PO DAILY [facility] Last Admin: 03/18/19 09:17 Dose: 30 mg Nebivolol (Bystolic -) 10 mg PO DAILY [facility] Last Admin: 03/18/19 09:16 Dose: 10 mg Pantoprazole Sodium (Protonix Iv) 40 mg IVPUSH BID [facility] Last Admin: 03/18/19 09:17 Dose: 40 mg - Objective Vital Signs: Vital Signs Temperature 98.2 F 03/18/19 08:40 Pulse Rate 73 03/18/19 08:40 Respiratory Rate 18 03/18/19 09:00 Blood Pressure 149/58 L 03/18/19 08:40 O2 Sat by Pulse Oximetry (%) 97 03/18/19 09:00 Constitutional: Yes: Calm, Thin Cardiovascular: Yes: Regular Rate and Rhythm, S1, S2 Respiratory: Yes: CTA Bilaterally Gastrointestinal: Yes: Tenderness, Tenderness, Epigastrium Edema: No Neurological: Yes: Alert, Oriented Labs: CBC, BMP 03/17/19 05:15 03/17/19 05:15 INR, PTT INR 1.11 (0.83-1.09) H 03/14/19 21:33 Problem List - Problems (1) Abdominal pain Assessment/Plan: gi consult noted not able to eat secondary to pain iv dilaudid for pain gi follow up today so they can transfer the patient to GI service at [facility] pancreatic mass in 2017 dx - 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
[2019-03-18 13:40] LABS: ALBUMIN 2.5 g/dl (3.4-5.0); BILIRUBIN,TOTAL 0.8 mg/dL (0.2-1); BLOOD UREA NITROGEN 14.6 mg/dL (7-18); CALCIUM 8.3 mg/dL (8.5-10.1); POTASSIUM 3.8 mmol/L (3.5-5.1); TOT PROT 5.9 g/dl (6.4-8.2)
--- NOTE | 2019-03-18 13:44 | PN ---
Progress Note (short form) - Note Progress Note: PULMONARY Denies shortness of breath or chest pain. Abdominal pain worse with eating. Vital Signs Period Temp Pulse Resp BP Sys/Wright Pulse Ox Last 24 Hr 98.2 F-99.3 F 65-78 16-18 139-160/58-74 95-97 Gen: NAD at rest Heart: RRR Lung: decreased breath sounds at the bases Abd: soft, nontender Ext: no edema CBC, BMP 03/17/19 05:15 03/18/19 12:45 Active Medications Acetaminophen (Tylenol -) 650 mg PO Q6H PRN PRN Reason: PAIN LEVEL 1-5 OR FEVER Last Admin: 03/15/19 02:13 Dose: 650 mg Albuterol Sulfate (Ventolin 0.083% Nebulizer Soln -) 1 amp NEB Q6H PRN PRN Reason: SHORT OF BREATH/WHEEZING Heparin Sodium (Porcine) (Heparin -) 5,000 unit SQ TID [facility] Last Admin: 03/18/19 13:38 Dose: 5,000 unit Hydralazine HCl (Apresoline -) 50 mg PO TID [facility] Last Admin: 03/18/19 13:38 Dose: 50 mg Hydromorphone HCl (Dilaudid Vial -) 1 mg IVPB Q4H PRN PRN Reason: PAIN LEVEL 6-10 Last Admin: 03/18/19 12:24 Dose: 1 mg Potassium Chloride/Dextrose/Sod Cl (D5-1/2ns+20 Meq Kcl -) 20 meq in 1,000 mls @ 75 mls/hr IV ASDIR [facility] Last Admin: 03/18/19 12:21 Dose: Not Given Isosorbide Mononitrate (Imdur -) 30 mg PO DAILY [facility] Last Admin: 03/18/19 09:17 Dose: 30 mg Nebivolol (Bystolic -) 10 mg PO DAILY [facility] Last Admin: 03/18/19 09:16 Dose: 10 mg Pantoprazole Sodium (Protonix Iv) 40 mg IVPUSH BID [facility] Last Admin: 03/18/19 09:17 Dose: 40 mg Polyethylene Glycol (Miralax (For Daily Use) -) 17 gm PO DAILY [facility] A/P Abdominal Pain Pancreatic Ca CAD h/o Diverticulitis CKD HTN - pain control - BP control - CT chest reviewed, appears to have mild apical emphysematous changes but no acute findings - inhaled bronchodilators as needed - DVT prophylaxis
--- NOTE | 2019-03-18 15:11 | PN ---
Progress Note (short form) - Note Progress Note: spoke to Dr Magdaleno plan to [facility] to [facility] to dr Kristi Ferreira service called transfer center [phone] line busy, not able to set up transfer as yet Problem List - Problems (1) Abdominal pain Code(s): R10.9 - UNSPECIFIED ABDOMINAL PAIN Qualifiers: Abdominal location: epigastric Qualified Code(s): R10.13 - Epigastric pain (2) Benign essential hypertension Code(s): I10 - ESSENTIAL (PRIMARY) HYPERTENSION (3) CKD (chronic kidney disease) stage 3, GFR 30-59 ml/min Code(s): N18.3 - CHRONIC KIDNEY DISEASE, STAGE 3 (MODERATE)
--- NOTE | 2019-03-18 15:36 | PN ---
Progress Note (short form) - Note Progress Note: Renal follow up for MARYANN Seen and examined at the bedside continues to have abd pain when she is trying to eat no sob, cp, fever or chills making urine on IVF Vital Signs Temperature 99.1 F 03/18/19 13:58 Pulse Rate 71 03/18/19 13:58 Respiratory Rate 18 03/18/19 13:58 Blood Pressure 151/64 03/18/19 13:58 O2 Sat by Pulse Oximetry (%) 97 03/18/19 09:00 Intake & Output 03/15/19 03/16/19 03/17/19 03/18/19 23:59 23:59 23:59 23:59 Intake Total 0 150 1930 1230 Balance 0 150 1930 1230 Weight 44.86 kg 44.452 kg NAD CTA no Le edema CBC, BMP 03/17/19 05:15 03/18/19 12:45 Current Medications Acetaminophen (Tylenol -) 650 mg PO Q6H PRN PRN Reason: PAIN LEVEL 1-5 OR FEVER Last Admin: 03/15/19 02:13 Dose: 650 mg Albuterol Sulfate (Ventolin 0.083% Nebulizer Soln -) 1 amp NEB Q6H PRN PRN Reason: SHORT OF BREATH/WHEEZING Heparin Sodium (Porcine) (Heparin -) 5,000 unit SQ TID [facility] Last Admin: 03/18/19 13:38 Dose: 5,000 unit Hydralazine HCl (Apresoline -) 50 mg PO TID [facility] Last Admin: 03/18/19 13:38 Dose: 50 mg Hydromorphone HCl (Dilaudid Vial -) 1 mg IVPB Q4H PRN PRN Reason: PAIN LEVEL 6-10 Last Admin: 03/18/19 12:24 Dose: 1 mg Dextrose/Lactated Ringer's (D5-Lr+20 Meq Kcl -) 20 meq in 1,000 mls @ 50 mls/ hr IV ASDIR [facility] Isosorbide Mononitrate (Imdur -) 30 mg PO DAILY [facility] Last Admin: 03/18/19 09:17 Dose: 30 mg Nebivolol (Bystolic -) 10 mg PO DAILY [facility] Last Admin: 03/18/19 09:16 Dose: 10 mg Pantoprazole Sodium (Protonix Iv) 40 mg IVPUSH BID [facility] Last Admin: 03/18/19 09:17 Dose: 40 mg Polyethylene Glycol (Miralax (For Daily Use) -) 17 gm PO DAILY [facility] 89 year old woman with history of neuroendocrine tumor of the pancreas, CAD s/p cardiac stent, hypertension, carotid stenosis s/p endartectomy who presented from home with abdominal pain and developed MARYANN during admission. 1. Acute kidney injury likely due to volume depletion but need to r/o ATN 2. Abdominal pain 3. Neuroendocrine tumor of the pancreas 4. Hypertension 5. Hyponatremia Renal function improved Urine studies are pending, UA showed 2+ protein will change IVF to D5LR with kcl as Na downtrending on hypotonic IVF and pt has poor oral intake CT of the abdomen showed no obstruction in urine flow s continue bystolic and hydralzine Thank you Buzz Castañeda DO
[2019-03-18] MEDS ORDERED: D5-LR+20 MEQ KCL - 20 MEQ/1,000 ML INFUS.BAG IV SCH (15:45)
--- NOTE | 2019-03-18 16:02 | PN ---
Progress Note (short form) - Note Progress Note: spoke to transfer center at [facility] and plan to transfer to [facility] patient can go to [facility] floor awaitng bed at [facility] Problem List - Problems (1) Abdominal pain Code(s): R10.9 - UNSPECIFIED ABDOMINAL PAIN Qualifiers: Abdominal location: epigastric Qualified Code(s): R10.13 - Epigastric pain (2) Benign essential hypertension Code(s): I10 - ESSENTIAL (PRIMARY) HYPERTENSION (3) CKD (chronic kidney disease) stage 3, GFR 30-59 ml/min Code(s): N18.3 - CHRONIC KIDNEY DISEASE, STAGE 3 (MODERATE)
[2019-03-18 20:17] VITALS: TEMP 97
[2019-03-18] MEDS ORDERED: METOPROLOL TARTRATE 5 MG/5 ML VIAL ONE (22:31)
[2019-03-18] MEDS ORDERED: METOPROLOL TARTRATE 5 MG/5 ML VIAL IVPUSH ONE (22:47)
--- NOTE | 2019-03-18 22:47 | HOSP ---
Subjective - Review of Symptoms Events since last encounter: 89 year old female with PMH of neuroendocrine tumor of the pancreas, CAD s/p cardiac stent, hypertension, carotid stenosis s/p endartectomy arrrived to [facility] for abdominal pain and developed MARYANN during admission. Accoring to Dr. Johnson note patient is being transferred to [facility] for further management of pancreas tumor. At 10: 37 pm member noted with A-fib with RVR, gave metoprolol 5mg IV push x1. EMS at bedside patient on stretcher left unit without any acute symptoms. Patient will be admitted to step-down unit at [facility]. RN notified/ gave report to nurse at [facility]. Physical Examination Vital Signs: Vital Signs Temperature 97.0 F L 03/18/19 20:12 Pulse Rate 70 03/18/19 20:12 Respiratory Rate 16 03/18/19 20:12 Blood Pressure 147/90 03/18/19 20:12 O2 Sat by Pulse Oximetry (%) 95 03/18/19 20:12 Labs: CBC, BMP 03/17/19 05:15 03/18/19 12:45
[2019-03-18 23:02] VITALS: BP 139/68; PULSE 139
[2019-03-19] MEDS ORDERED: POLYETHYLENE GLYCOL 3350 119 GM BTL PO SCH (10:00)
--- NOTE | 2019-03-21 16:59 | EKG ---
Test Reason : Blood Pressure : / mmHG Vent. Rate : 131 BPM Atrial Rate : 136 BPM P-R Int : 000 ms QRS Dur : 074 ms QT Int : 302 ms P-R-T Axes : 000 019 203 degrees QTc Int : 445 ms ATRIAL FIBRILLATION WITH RAPID VENTRICULAR RESPONSE MARKED ST ABNORMALITY, POSSIBLE INFERIOR SUBENDOCARDIAL INJURY MARKED ST ABNORMALITY, POSSIBLE ANTEROSEPTAL SUBENDOCARDIAL INJURY ABNORMAL ECG WHEN COMPARED WITH ECG OF 14-MAR-2019 06:38, ATRIAL FIBRILLATION HAS REPLACED SINUS RHYTHM VENT. RATE HAS INCREASED Confirmed by TRACIE PANIAGUA MD ([id number]) on 03/21/2019 4:58:34 PM Referred By: Confirmed By:TRACIE PANIAGUA MD
== END 2019-03-18 23:00 | disposition short-term general hospital (02) | DRG 844 ==
LOC: JER 05:55 → JERBED 14:00 → J5S 03-15 16:17 → J4S 03-15 20:17
PROVIDERS: ADMIT Family Medicine; ATTEND Family Medicine
DX: D3A.8 Other benign neuroendocrine tumors (principal); C25.9 Malignant neoplasm of pancreas, unspecified; E87.1 Hypo-osmolality and hyponatremia; N17.9 Acute kidney failure, unspecified; Z68.1 Body mass index [BMI] 19.9 or less, adult; K55.1 Chronic vascular disorders of intestine; I25.10 Atherosclerotic heart disease of native coronary artery without angina pectoris; K21.9 Gastro-esophageal reflux disease without esophagitis; K57.90 Diverticulosis of intestine, part unspecified, without perforation or abscess without bleeding; K44.9 Diaphragmatic hernia without obstruction or gangrene; K62.1 Rectal polyp; E78.00 Pure hypercholesterolemia, unspecified; K59.09 Other constipation; I12.9 Hypertensive chronic kidney disease with stage 1 through stage 4 chronic kidney disease, or unspecified chronic kidney disease; N18.3 Chronic kidney disease, stage 3 (moderate); I48.91 Unspecified atrial fibrillation; M10.9 Gout, unspecified; R63.4 Abnormal weight loss; K86.89 Other specified diseases of pancreas; I77.9 Disorder of arteries and arterioles, unspecified; N28.1 Cyst of kidney, acquired; K76.89 Other specified diseases of liver; Z90.49 Acquired absence of other specified parts of digestive tract; Z95.5 Presence of coronary angioplasty implant and graft; Z87.11 Personal history of peptic ulcer disease; Z87.891 Personal history of nicotine dependence
CPT/HCPCS: 36415; 71045-TC-FY; 71260-TC; 74177-TC; 76775-TC; 80053; 80061; 81003; 82550; 83036; 83690; 83721; 84484; 85025; 85027; 85610; 85730; 86301; 87086; 93005; 93010; 97116-GP; 97161-GP; 99285-25; J1644; J7030